=== PATIENT | female | born 1985 | race Caucasian/White ===

== ENCOUNTER 2017-02-14 12:22 | Inpatient (IN) | payer OTHER ==
[2017-02-14] MEDS ORDERED: LORazepam 2 MG/ML SYRINGE IV STA ×2 (13:09→13:11)
[2017-02-14] MEDS ORDERED: SODIUM CHLORIDE 0.9% 1,000 ML IV STA ×2 (13:09)
--- NOTE | 2017-02-14 13:49 | ED ---
General Adult HPI - General Chief complaint: Weakness Stated complaint: pain all over Time Seen by Provider: 02/14/17 12:38 Source: EMS Mode of arrival: EMS - History of Present Illness Initial comments: The patient is a 31-year-old female with a history of multiple sclerosis and seizure disorder who presents to the ED with a chief complaint of twitching throughout her entire body as well as weakness of the upper and lower extremities. Patient also complains of difficulty in swallowing. Patient states that her symptoms have been present over the course the past week and have been progressively worsening. Patient states that she went to go see her PCP earlier this week. She states that she received a steroid shot at that point in time and was given instructions to follow-up with Dr. Alcazar. Patient states that her symptoms seemed to be worsening acutely and she was concerned that she might have a full out MS flare. As such, she came to the ED for further evaluation. The patient admits that she has been very poorly compliant with her medications for multiple sclerosis as well as seizure disorder. She states that she has not been taking any medications altogether. She was once on Topamax, Lamictal, and Beta-Interferon. Patient states that she stopped taking these medications because she was improving and felt like they weren't doing anything to help. Patient used to follow with Dr. Hernandez from Neurology. The patient states that her symptoms today are different than the seizures that she's had in the past. She states that she had full out tonic- clonic seizures. Patient denies any loss of bowel or bladder function. She states that her symptoms are similar to prior MS exacerbations. - Related Data Home Medications Medication Instructions Recorded Confirmed predniSONE See Taper PO BID 02/14/17 02/14/17 Allergies Allergy/AdvReac Type Severity Reaction Status Date / Time No Known Allergies Allergy Verified 02/14/17 13:21 Review of Systems ROS Statement: Those systems with pertinent positive or pertinent negative responses have been documented in the HPI. ROS Other: All systems not noted in ROS Statement are negative. Constitutional: Denies: fever, chills, weakness, weight change Eyes: Denies: vision change ENT: Reports: other (difficulty with swallowing). Denies: ear pain, throat pain , dental pain, hearing loss Respiratory: Denies: cough, dyspnea, wheezes Cardiovascular: Denies: chest pain, palpitations, dyspnea on exertion, orthopnea , edema Endocrine: Reports: fatigue Gastrointestinal: Denies: abdominal pain, nausea, vomiting, diarrhea, constipation Genitourinary: Reports: other (denies incontinence). Denies: urgency, dysuria, frequency Musculoskeletal: Reports: other (weakness and myalgias of the upper and lower extremities) Skin: Denies: rash, lesions Neurological: Reports: headache (intermittent), weakness (bilateral upper and lower extremities), numbness (distal upper and lower extremities). Denies: paresthesias, confusion, abnormal gait, vertigo, other Psychiatric: Reports: anxiety. Denies: depression Past Medical History Past Medical History: Neurologic Disorder, Seizure Disorder Additional Past Medical History / Comment(s): multiple sclerosis History of Any Multi-Drug Resistant Organisms: None Reported Past Surgical History: Appendectomy, Section, Tubal Ligation Additional Past Surgical History / Comment(s): D&C, CORRECTIVE EYE SURGERY Past Anesthesia/Blood Transfusion Reactions: No Reported Reaction Past Psychological History: Anxiety, Depression Smoking Status: Never smoker - Past Family History Mother Family Medical History: COPD General Exam General appearance: alert, in no apparent distress Head exam: Present: atraumatic, normocephalic Eye exam: Present: normal appearance, PERRL, EOMI. Absent: scleral icterus, conjunctival injection, nystagmus Pupils: Present: normal accommodation ENT exam: Present: normal exam, mucous membranes dry, other (Oropharynx is non- swollen and non-injected) Neck exam: Present: normal inspection. Absent: tenderness, meningismus, full ROM, lymphadenopathy, thyromegaly Respiratory exam: Present: normal lung sounds bilaterally. Absent: respiratory distress, wheezes, rales, rhonchi, stridor, chest wall tenderness Cardiovascular Exam: Present: regular rate, normal rhythm GI/Abdominal exam: Present: soft. Absent: distended, tenderness, guarding, rebound Extremities exam: Present: normal inspection, full ROM, normal capillary refill , other (4-5 strength of the bilateral upper and lower extremities). Absent: tenderness, pedal edema, joint swelling Back exam: Present: normal inspection, full ROM. Absent: tenderness Neurological exam: Present: alert, oriented X3, CN II-XII intact, other ( inability to ambulate). Absent: reflexes normal (diminished reflexes in the upper and lower extremities) Psychiatric exam: Present: normal affect, anxious Skin exam: Present: warm, dry, intact Course Vital Signs 02/14/17 02/14/17 12:24 14:44 Temperature 98.2 F Pulse Rate 104 H 79 Respiratory 18 18 Rate Blood Pressure 132/73 125/78 O2 Sat by Pulse 99 100 Oximetry EKG Findings - EKG Comments: EKG Findings:: EKG demonstrates NSR with a rate of 90. There is a sinus arrhythmia present. There are no concerning ST or T-wave changes. The SD and QRS intervals are within normal limits. Medical Decision Making - Medical Decision Making The patient is a 31-year-old female who presents to the ED with a chief complaint of weakness in the upper and lower extremities. She also complains of difficulty with swallowing. Patient also cites shaking of upper and lower extremities. Patient states that her symptoms are consistent with prior exacerbations of her multiple sclerosis. The patient was diagnosed with multiple sclerosis via MRI. She does have an MRI from 2014 that demonstrates evidence of white matter changes that would be consistent with multiple sclerosis. The patient used to follow with Dr. Hernandez. Her PCP provided her with instructions to follow-up with Dr. Alcazar but the patient has not had the opportunity to do so. Given the patient is unable to ambulate, will check lab work. We will contact Dr. Alcazar for recommendations after lab work is returned. It should be noted that the patient was poorly compliant with her medications for seizure disorder as well as for her multiple sclerosis. She states she has not taken either of these medications over the course the past 2 years. 4:[address] Alcazar regarding the patient. He recommends that the patient receive an MRI Brain w/wo Contrast. He also recommends starting the patient on Solu-Medrol 250mg IVPB q8 hrs. I have updated the patient of findings and overall plan of care. I have answered all of her questions to her satisfaction. 4:[address] Cornell, who accepts admission of the patient. - Lab Data Result diagrams: 02/14/17 13:30 02/14/17 13:30 Lab Results 02/14/17 02/14/17 02/14/17 Range/Units 13:30 13:30 13:30 WBC 6.9 (3.8-10.6) k/uL RBC 4.22 (3.80-5.40) m/uL Hgb 12.3 (11.4-16.0) gm/dL Hct 38.0 (34.0-46.0) % MCV 90.2 (80.0-100.0) fL MCH 29.1 (25.0-35.0) pg MCHC 32.3 (31.0-37.0) g/dL RDW 13.2 (11.5-15.5) % Plt Count 200 (150-450) k/uL Neutrophils % 76 % Lymphocytes % 16 % Monocytes % 5 % Eosinophils % 0 % Basophils % 0 % Neutrophils # 5.3 (1.3-7.7) k/uL Lymphocytes # 1.1 (1.0-4.8) k/uL Monocytes # 0.4 (0-1.0) k/uL Eosinophils # 0.0 (0-0.7) k/uL Basophils # 0.0 (0-0.2) k/uL Sodium 140 (137-145) mmol/L Potassium 5.5 H (3.5-5.1) mmol/L Chloride 110 H (98-107) mmol/L Carbon Dioxide 21 L (22-30) mmol/L Anion Gap 9 mmol/L BUN 12 (7-17) mg/dL Creatinine 0.60 (0.52-1.04) mg/dL Est GFR (MDRD) Af Amer >60 (>60 ml/min/1.73 sqM) Est GFR (MDRD) Non-Af >60 (>60 ml/min/1.73 sqM) Glucose 98 (74-99) mg/dL Plasma Lactic Acid Daniel 0.9 (0.7-2.0) mmol/L Calcium 8.8 (8.4-10.2) mg/dL Magnesium 1.6 (1.6-2.3) mg/dL Creatine Kinase 93 (30-135) U/L TSH 0.749 (0.465-4.680) mIU/L Disposition Clinical Impression: Multiple sclerosis exacerbation, Weakness, Medical non-compliance Disposition: ADMITTED IP TO THIS [facility] Condition: Good Referrals: Evangelist Anne DO [Primary Care Provider] - 1-2 days Time of Disposition: 16:32 Decision to Admit Reason: Admit from EC Decision Date: 02/14/17 Decision Time: 16:32
[2017-02-14 13:59] LABS: Basophils % (A) 0 %; CH 29.3; CHCM 32.6; Eosinophils % (A) 0 %; HDW 2.25; HGB 12.3 gm/dL (11.4-16.0); Luc # (Auto) 0.12; Luc % (Auto) 2; Lymphocytes # (A) 1.1 k/uL (1.0-4.8); Lymphocytes % (A) 16 %; MCH 29.1 pg (25.0-35.0); MCHC 32.3 g/dL (31.0-37.0); MCV 90.2 fL (80.0-100.0); Mean Platelet Volume 7.8; Monocytes # (A) 0.4 k/uL (0-1.0); Monocytes % (A) 5 %; Neutrophils # (A) 5.3 k/uL (1.3-7.7); Neutrophils % (A) 76 %; RBC 4.22 m/uL (3.80-5.40); RDW 13.2 % (11.5-15.5); WBC 6.9 k/uL (3.8-10.6); WBC (Perox) 7.34
[2017-02-14 14:09] LABS: Anion Gap 9 mmol/L; Blood Urea Nitrogen 12 mg/dL (7-17); Calcium 8.8 mg/dL (8.4-10.2); Carbon Dioxide 21 mmol/L (22-30); Chloride 110 mmol/L (98-107); Creatine Kinase 93 U/L (30-135); Glucose 98 mg/dL (74-99); Magnesium 1.6 mg/dL (1.6-2.3); Non-African American GFR(MDRD) >60 (>60 ml/min/1.73 sqM); Sodium 140 mmol/L (137-145)
[2017-02-14 14:40] LABS: Potassium 5.5 mmol/L (3.5-5.1)
[2017-02-14] MEDS: MAGNESIUM SULFATE-D5W PMX 1 GM in DEXTROSE/WATER 1 100ML.BAG IVPB SCH ×2 (15:48→20:00)
[2017-02-14] MEDS ORDERED: methylPREDNISolone SOD SUCCI 250 MG in SODIUM CHLORIDE 0.9% 100 ML IVPB STA (15:54)
[2017-02-14] MEDS ORDERED: NALOXONE 0.4 MG/ML 1 ML VIAL IV PRN (16:33)
[2017-02-14 17:50] LABS: Glucose,Whole Blood 81 mg/dL (75-99)
[2017-02-14] MEDS ORDERED: LORazepam 2 MG/ML SYRINGE IV PRN (17:57)
[2017-02-14] MEDS ORDERED: SODIUM POLYSTYRENE SULFONATE 15 GM/60 ML BOTTLE PO ONE (18:03)
[2017-02-14] MEDS: HYDROmorphone 1 MG/ML 1 ML SYRINGE IVP PRN (18:42)
[2017-02-14 20:34] LABS: Glucose,Whole Blood 123 mg/dL (75-99)
[2017-02-14] MEDS: VALPROATE SODIUM 500 MG in SODIUM CHLORIDE 0.9% 50 ML IVPB SCH (21:15)
[2017-02-14] MEDS ORDERED: TEMAZEPAM 15 MG CAP PO PRN (22:24)
[2017-02-14] MEDS: INSULIN LISPRO (humaLOG) 300 UNIT/3 ML VIAL SQ SCH (22:42)
[2017-02-14] MEDS: methylPREDNISolone SOD SUCCI 250 MG in SODIUM CHLORIDE 0.9% 100 ML IVPB SCH (23:01)
[2017-02-14] MEDS: PANTOPRAZOLE 40 MG TABLET PO SCH (23:02)
[2017-02-14] MEDS: HEPARIN SODIUM,PORCINE 5,000 UNIT/ML 1 ML VIAL SQ SCH (23:02)
[2017-02-15] MEDS: HYDROmorphone 1 MG/ML 1 ML SYRINGE IVP PRN ×4 (00:28→22:37)
[2017-02-15] MEDS: VALPROATE SODIUM 500 MG in SODIUM CHLORIDE 0.9% 50 ML IVPB SCH ×3 (04:23→20:51)
[2017-02-15 07:29] LABS: Glucose,Whole Blood 141 mg/dL (75-99)
--- NOTE | 2017-02-15 07:46 | MR ---
EXAMINATION TYPE: MR brain wo/w con DATE OF EXAM: 02/15/2017 COMPARISON: 08/08/2015 HISTORY: 31-year-old female with weakness of upper and lower extremities, history of MS TECHNIQUE: Multiplanar, multisequence images of the brain and brainstem is performed without and with utilizing 10 mL intravenous MultiHance gadolinium contrast. Demyelinating disease protocol with additional Sag ittal Flair sequence performed. FINDINGS: T2 Lesions Present : Yes Approximate Number of Lesions: Approximately 4 within the right cerebral hemisphere and 6 within the left cerebral hemisphere. Locations Identified : Subcortical, periatrial, and pericallosal. Size of Reference Lesion(s): 1. 5 x 3 mm the left frontoparietal periventricular white matter, stable from prior. 2. Left periatrial white matter lesion is stable. Enhancing Lesion(s) Present: No. T1 Hypointense Lesion(s) Present: Yes Change from Prior: A few punctate foci in the bifrontal subcortical white matter appear new. Couple p unctate foci in the right pericallosal region and also in the left anterior subcortical white matter are now better seen. Diffusion weighted images demonstrate no evidence of a recent infarct or other diffusion abnormality. There is no worrisome extra-axial fluid collection. The ventricular system and cisternal spaces are normal in size and appearance. The brain volume is a ge appropriate. Midline structures demonstrate normal morphology. The craniocervical junction appears within normal limits. Post contrast images demonstrate no abnormal enhancement. The dural venous sinuses appear patent. The visualized sinuses are clear and the globes are intact. IMPRESSION: Minimal scattered burden of T2 bright white matter change likely in keeping with the patient's histor y of MS. A few punctate foci in the bifrontal subcortical region may be new and additional punctate f oci in the anterior left frontal and right pericallosal region are now better seen. No enhancing plaq ues visualized.
[2017-02-15] MEDS: PANTOPRAZOLE 40 MG TABLET PO SCH (08:07)
[2017-02-15] MEDS: HEPARIN SODIUM,PORCINE 5,000 UNIT/ML 1 ML VIAL SQ SCH ×2 (08:09→20:52)
[2017-02-15] MEDS: INSULIN LISPRO (humaLOG) 300 UNIT/3 ML VIAL SQ SCH ×4 (08:09→20:52)
[2017-02-15 08:57] LABS: Basophils % (A) 0 %; CH 29.2; CHCM 33.4; Eosinophils % (A) 0 %; HCT 37.5 % (34.0-46.0); HDW 2.33; HGB 12.6 gm/dL (11.4-16.0); Luc # (Auto) 0.04; Luc % (Auto) 1; Lymphocytes # (A) 0.7 k/uL (1.0-4.8); Lymphocytes % (A) 12 %; MCH 29.5 pg (25.0-35.0); MCHC 33.7 g/dL (31.0-37.0); MCV 87.7 fL (80.0-100.0); Mean Platelet Volume 6.9; Monocytes # (A) 0.1 k/uL (0-1.0); Monocytes % (A) 1 %; Neutrophils # (A) 5.2 k/uL (1.3-7.7); Neutrophils % (A) 86 %; RBC 4.28 m/uL (3.80-5.40); RDW 12.7 % (11.5-15.5); WBC 6.1 k/uL (3.8-10.6); WBC (Perox) 6.21
[2017-02-15 09:04] LABS: ALT 21 U/L (9-52); AST 15 U/L (14-36); Alkaline Phosphatase 92 U/L (38-126); Anion Gap 10 mmol/L; Blood Urea Nitrogen 12 mg/dL (7-17); Calcium 8.6 mg/dL (8.4-10.2); Carbon Dioxide 23 mmol/L (22-30); Chloride 106 mmol/L (98-107); Glucose 138 mg/dL (74-99); Magnesium 2.1 mg/dL (1.6-2.3); Non-African American GFR(MDRD) >60 (>60 ml/min/1.73 sqM); Phosphorous 3.1 mg/dL (2.5-4.5); Potassium 4.3 mmol/L (3.5-5.1); Sodium 139 mmol/L (137-145); Total Bilirubin 0.7 mg/dL (0.2-1.3); Total Protein 6.5 g/dL (6.3-8.2)
[2017-02-15] MEDS: methylPREDNISolone SOD SUCCI 250 MG in SODIUM CHLORIDE 0.9% 100 ML IVPB SCH ×2 (09:11→16:25)
--- NOTE | 2017-02-15 10:42 | CONS ---
DATE OF CONSULTATION: 02/14/2017 CHIEF COMPLAINT: Multiple sclerosis exacerbation. HISTORY OF PRESENT ILLNESS: The patient is a 31-year-old female who is being evaluated today on 02/14/2017 by the neurology service per the request of Dr. Cornell for a multiple sclerosis exacerbation. The patient states that she was diagnosed with multiple sclerosis a few years ago and had been treating with Dr. Hernandez. She had been on Betaseron injections. She states that since Dr. Hernandez left [facility], she has not followed up with any neurologist or any primary care physician. She has discontinued all of her medications since then. Other than Betaseron for her multiple sclerosis, she reports a history of seizures and she had been on Keppra for this. She states that she has discontinued Keppra but has not had any breakthrough seizures since then. She describes her seizures as generalized tonic-clonic type. Her last seizure was approximately 2 years ago. The patient was brought into [facility] emergency room with complaints of swallowing difficulties and generalized weakness. Her symptoms started a couple days ago but have been getting worse. She is also complaining of tremors, but in evaluating her, these are more consistent with myoclonus. I did review her CBC and comprehensive metabolic profile, all of which were normal except for mild hyperkalemia at 5.5. The patient was started on IV Solu-Medrol and admitted for further workup and management. At the time of my evaluation, she is lying in her bed and appears to be in mild distress due to pain. She reports pain in her lower extremities, and she states that this is part of her usual exacerbation. PAST MEDICAL HISTORY: Epilepsy, multiple sclerosis, bipolar disorder, posttraumatic stress disorder, depression, anxiety disorder, history of appendectomy, tubal ligation, . SOCIAL HISTORY: The patient denies any tobacco, alcohol or drug use. FAMILY HISTORY: Positive for chronic obstructive pulmonary disease. HOME MEDICATIONS: None at this time. ALLERGIES: No known drug allergies. REVIEW OF SYSTEMS: CONSTITUTIONAL: Positive for fatigue. EYES: Negative. ENT: Negative. CARDIOVASCULAR: Negative. RESPIRATORY: Negative. GASTROINTESTINAL: Negative. NEUROLOGICAL: As mentioned above. GENITOURINARY: Negative. PSYCHIATRIC: As mentioned above. DERMATOLOGICAL: Negative. MUSCULOSKELETAL: As mentioned above. ENDOCRINE: Negative. PHYSICAL EXAM: Vital signs show a temperature of 97.2, pulse 93, respirations 20, blood pressure 141/96. GENERAL APPEARANCE: The patient is a thin female who appears to be in mild distress due to pain. HEENT: Normocephalic, atraumatic, no facial asymmetry is seen. Neck is supple with no masses felt. CARDIOVASCULAR: Regular rate and rhythm. ABDOMEN: Nontender, nondistended. Extremities showed no edema or clubbing. NEUROLOGICAL EXAM: The patient is alert, awake, and oriented x3. Speech and language are normal. Strength is 5 minus out of 5 in all 4 extremities but she does have significant pain with movements of her lower extremities. Deep tendon reflexes were 2 to 3+ and symmetrical. Recurrent myoclonus is noticed. Mild postural tremors are seen. Sensory exam was normal to light touch in all 4 extremities. No facial asymmetry is seen on cranial nerve testing. IMPRESSION: 1. Multiple sclerosis exacerbation. 2. History of generalized tonic-clonic seizures. 3. Medication noncompliance. 4. Hyperkalemia. 5. Dysphagia. 6. Generalized weakness. 7. History of bipolar disorder. RECOMMENDATIONS: The patient's generalized weakness is unchanged at this time. She does report some improvements in her swallowing ability. Speech therapy has been consulted. I will keep her on IV Solu-Medrol 250 mg every 8 hours. She is on sliding scale insulin and Accu-Cheks. I will consult physical therapy to evaluate and treat. I will order an MRI of the brain with and without contrast. As for her history of seizures, she was on Keppra but this is not recommended given her significant psychiatric history. She does report having significant mood swings when she was on Keppra. I had a lengthy discussion with her regarding treatment options. Especially with her current symptoms of myoclonus, I think Depakote would be the treatment of choice. I will start her on Depakote 500 mg every 8 hours. An EEG has been ordered. Continue the rest of your current workup and management. I will continue to follow with you. Further recommendations to follow. Thank you for allowing me to participate in the care of your patient. If you have any questions, please feel free to contact me.
[2017-02-15] MEDS: HYDROcodone/APAP 5-325MG 1 EACH TAB PO PRN (10:45)
[2017-02-15 12:20] LABS: Glucose,Whole Blood 177 mg/dL (75-99)
[2017-02-15] MEDS: MULTIVITAMINS, THERA 1 EACH TAB PO SCH (12:51)
[2017-02-15] MEDS: FOLIC ACID 1 MG TAB PO SCH (12:51)
--- NOTE | 2017-02-15 13:29 | HP ---
DATE OF ADMISSION: Chief Complaints are weakness and tiredness. HISTORY OF PRESENT ILLNESS: This 31-year-old woman with a past medical history of multiple medical problems including history of seizure disorder, history of multiple sclerosis, chronic back pain, history of appendectomy, history of section, history of anxiety, depression, history of bipolar, being followed by Dr. Anne in the outpatient setting and also seen by Dr. Hernandez a neurologist who made the diagnosis of multiple sclerosis based on MRI and as well as a spinal fluid studies. Currently, the patient is complaining of increasing difficulties with walking and weakness. The patient is apparently being tremulous. This is more on the right lower limb and left upper limb. There is also visual difficulties. The symptoms increased over the week and the patient previously was seen by Dr. Alcazar and has apparently gotten a steroid shot, but the pain and weakness was increasing currently and because of increasing symptoms the patient came to [facility] and admitted for further evaluation and treatment. The patient was on Lamictal and the patient has not been compliant with the medications according to her. There is no history of any fever, rigors. No history of headache, loss of consciousness or seizures. PAST MEDICAL HISTORY: History of multiple sclerosis, history of seizure disorder, history of chronic back pain, DJD, anxiety, depression, bipolar. Medications prior to admission include prednisone taper. ALLERGIES: None. FAMILY HISTORY: COPD, history of multiple sclerosis, history of breast cancer. SOCIAL HISTORY: History of occasional alcohol intake. No history of smoking. REVIEW OF SYSTEMS: ENT: No diminished hearing. Diminished vision. CARDIOVASCULAR: No angina. RESPIRATORY: No cough, no hemoptysis. GI: No nausea, vomiting, or diarrhea. : No dysuria. NERVOUS SYSTEM: As mentioned earlier. ALLERGY/IMMUNOLOGY: No asthma or hayfever. MUSCULOSKELETAL: As mentioned earlier. HEMATOLOGY/ONCOLOGY: No history of anemia. ENDOCRINE: No history of diabetes mellitus or hypothyroidism. CONSTITUTIONAL: As mentioned earlier DERMATOLOGY: Negative. RHEUMATOLOGY: Negative. PSYCHIATRY: As mentioned earlier. PHYSICAL EXAMINATION: The patient is alert and oriented x3. Pulse is 93, blood pressure 141/96, respiration 20, temperature 97.2, pulse ox 100% on 2 L. HEENT: Conjunctivae normal. Oral mucosa moist. NECK: No jugular venous distention. No carotid bruit. No lymph node enlargement. CARDIOVASCULAR: S1 and S2, muffled. No S3, no S4. RESPIRATORY: Breath sounds diminished at the bases. A few rhonchi, no crackles. ABDOMEN: Soft, nontender. No mass palpable. LEGS: No edema, no swelling. NERVOUS SYSTEM: Higher function as mentioned earlier. Moves all 4 limbs. Diffuse weakness and diffuse tremors also present. diminished. No sensory abnormalities. LYMPHATICS: No lymphadenopathy of neck, axillae or groin. SKIN: No ulcers, rashes or bleeding. LABS: CBC within normal limits, Potassium 5.5. Glucose 123. ASSESSMENT: 1. Multiple sclerosis acute exacerbation. 2. Severe gait dysfunction. 3. Diffuse tremors. 4. Mild hyperkalemia. 5. Increased random blood sugar, possibly secondary to steroids. 6. History of seizure disorder. 7. History of chronic back pain, degenerative joint disease. 8. History of scoliosis. 9. History of neuropathy. 10. History of tubal ligation. 11. Anxiety, depression, bipolar, not otherwise specified. 12. Social stressors. 13. FULL CODE. RECOMMENDATIONS AND DISCUSSION: This 31-year-old woman who presented with multiple complex medical issues, will monitor the patient closely. Continue the current medications. Continue symptomatic treatment. I would recommend high-dose IV steroids. Monitor blood sugars closely. Otherwise proton pump inhibitors, DVT prophylaxis. Neurology evaluation, neurovascular lobe workup. Prognosis guarded because of multiple complex medical issues. Further recommendations to follow. A copy of dictation forwarded to Dr. Anne who is the primary physician. Dr. Alcazar has been consulted. [facility]
[2017-02-15 14:32] VITALS: BMI 18.9
[2017-02-15 15:01] LABS: Amorphous Sediment,Urine Rare /hpf; Appearance,Urine Cloudy (Clear); Bacteria,Urine Many /hpf; Bilirubin,Urine Negative (Negative); Glucose,Urine (UA) Negative (Negative); Ketones,Urine 2+ (Negative); Leukocyte Esterase,Urine Negative (Negative); Mucus,Urine Rare /hpf; Nitrite,Urine Negative (Negative); PH, Urine 6.5 (5.0-8.0); Particle Count 14048; Protein,Urine Trace (Negative); RBC,Urine 1 /hpf (0-5); Specific Gravity,Urine 1.021 (1.001-1.035); Squamous Epithelial Cell,Urine 5 /hpf (0-4); UA Billing (MACRO vs. MICRO) MICRO; Urobilinogen,Urine <2.0 mg/dL (<2.0); WBC,Urine 1 /hpf (0-5)
[2017-02-15 17:27] LABS: Glucose,Whole Blood 113 mg/dL (75-99)
--- NOTE | 2017-02-15 17:54 | P.PN ---
Subjective Date of service 02/25/2017. Personal being dictated for Dr. Cornell. Interval history: This a 31-year-old female admitted with acute MS exacerbation and multiple other medical issues including history of seizures. Evaluated by neurology with recommendations noted. Keppra discontinued and Depakote initiated as per neurology, given her psychiatric history. Maintained on high- dose IV steroids and seizure precautions. Feeling better today with tremors and shaking improving. No seizure activity reported. Improving lower extremity discomfort. Denies chest pain, palpitations or increasing shortness of breath. Evaluated by Pt, recommendations noted. EEG,MRI results pending. Denies chest pain, palpitations or increasing shortness of breath. Objective - Vital Signs Vital signs: Vital Signs Temp 97.9 F 02/15/17 15:00 Pulse 105 H 02/15/17 15:00 Resp 16 02/15/17 15:00 BP 143/93 02/15/17 15:00 Pulse Ox 97 02/15/17 15:00 Intake & Output 02/14/17 02/15/17 02/15/17 18:59 06:59 18:59 Weight 48.534 kg 48.534 kg Other: # Voids 2 1 - Exam PHYSICAL EXAM: VITAL SIGNS: As above GENERAL: [Sitting up in bed, no acute distress, visiting with friends at bedside ] HEENT: [Pupils equal conjunctiva normal. Oral mucosa moist] NECK: [Supple, no JVD] RESPIRATORY EFFORT:[ Normal] LUNGS: [Essentially clear, bilateral bases diminished, no wheezes rhonchi or crackles] CARDIOVASCULAR[ regular S1 and S2, no murmurs rubs or gallops, no edema] GI: [Abdomen soft, nontender, positive bowel sounds.] PSYCH: [Alert and oriented -3, mood and affect normal.] NEURO: [Clear functions as previously mentioned, moves all 4 extremities diffuse weakness with no sensory grossly intact, diffuse tremors and shakes improving. Moves all 4 extremities.] - Labs CBC & Chem 7: 02/15/17 08:26 02/15/17 08:26 Labs: Abnormal Lab Results - Last 24 Hours (Table) 02/14/17 02/15/17 02/15/17 Range/Units 20:33 07:27 08:26 Lymphocytes # 0.7 L (1.0-4.8) k/uL Glucose (74-99) mg/dL POC Glucose (mg/dL) 123 H 141 H (75-99) mg/dL Urine Appearance (Clear) Urine Protein (Negative) Urine Ketones (Negative) Ur Squamous Epith Cells (0-4) /hpf Amorphous Sediment (None) /hpf Urine Bacteria (None) /hpf Urine Mucus (None) /hpf 02/15/17 02/15/17 02/15/17 Range/Units 08:26 12:18 14:30 Lymphocytes # (1.0-4.8) k/uL Glucose 138 H (74-99) mg/dL POC Glucose (mg/dL) 177 H (75-99) mg/dL Urine Appearance Cloudy H (Clear) Urine Protein Trace H (Negative) Urine Ketones 2+ H (Negative) Ur Squamous Epith Cells 5 H (0-4) /hpf Amorphous Sediment Rare H (None) /hpf Urine Bacteria Many H (None) /hpf Urine Mucus Rare H (None) /hpf 02/15/17 Range/Units 17:19 Lymphocytes # (1.0-4.8) k/uL Glucose (74-99) mg/dL POC Glucose (mg/dL) 113 H (75-99) mg/dL Urine Appearance (Clear) Urine Protein (Negative) Urine Ketones (Negative) Ur Squamous Epith Cells (0-4) /hpf Amorphous Sediment (None) /hpf Urine Bacteria (None) /hpf Urine Mucus (None) /hpf Assessment and Plan Plan: 1. Acute exacerbation of Multiple sclerosis. 2. [ Severe gait dysfunction]. 3. [ Diffuse tremors]. 4. [ Mild hyperkalemia, subsided]. 5. [ Hyperglycemia, steroid-induced, currently controlled]. 6. [ History of seizure disorder]. 7. [ Degenerative joint disease with chronic back pain]. 8. Scoliosis 9. Neuropathy 10. Anxiety, depression, bipolar, not otherwise specified 11. Social stressors Plan: Continue on current medication regime, monitoring and symptomatic treatment. Maintain high dose IV steroids, seizure precautions. Neuro. workup in progress.Follow closely with neurology. Prognosis guarded given multiple complex medical issues. Further recommendations to follow. The impression and plan of care has been dictated as directed. : I performed a H&P examination of this patient and discussed the same with the dictator. I agree with the dictator's note. Any additional findings/opinions/ etc. will be noted.
[2017-02-15 20:39] LABS: Glucose,Whole Blood 161 mg/dL (75-99)
[2017-02-15] MEDS: ONDANSETRON 4 MG/2 ML VIAL IVP PRN (20:52)
--- NOTE | 2017-02-15 22:53 | PN ---
DATE OF SERVICE: 02/15/2017 This 31-year-old woman who was admitted with multiple sclerosis exacerbation is being closely monitored on IV steroids. Seen and evaluated the patient along with the nurse practitioner. Please refer to the nurse practitioner's notes and impressions documented as a scribe for further information.
--- NOTE | 2017-02-15 23:34 | P.PN ---
Subjective Principal diagnosis: Multiple sclerosis exacerbation Patient is a 31-year-old female being followed by neurology for multiple sclerosis exacerbation. Patient was diagnosed multiple sclerosis approximately 3 years ago and then treating with Dr. Hernandez. Patient's provider left the area and she has not reestablish care with a new neurologist or primary care physician. She previously discontinued all of her medications including her Betaseron for multiple sclerosis. She reports a history of seizure and had been on Keppra. She states that she discontinue Keppra but has not had any breakthrough seizures since. She describes her seizures are generalized, tonic-clonic type. Last seizure was approximately 2 years ago. Patient is brought to [facility] emergency room with complaints of swallowing difficulties and generalized weakness. Symptoms started several days ago and had gotten worse. She also complained of tremors but noted that they were more consistent with mild clonus. CBC, CMP were all within normal limits with the exception of mild hyperkalemia. Patient has benign IV Solu-Medrol for the last 24 hours and was admitted. On contact, patient was supine in bed, Alert and oriented 3, resting with IV steroid infusion in process. Patient is receiving 250 mg every 8 hours of IV Solu-Medrol. Currently the patient is approximately 24 hours into steroid infusion. Patient does report some decreased symptoms. Objective - Vital Signs Vital signs: Vital Signs Temp 97.9 F 02/15/17 15:00 Pulse 105 H 02/15/17 15:00 Resp 16 02/15/17 15:00 BP 143/93 02/15/17 15:00 Pulse Ox 97 02/15/17 15:00 Intake & Output 02/15/17 02/15/17 02/16/17 06:59 18:59 06:59 Weight 48.534 kg Other: # Voids 2 1 1 - Exam Constitutional: AOx3, cooperative HEENT: NC/AT, no facial asymmetry is seen. Throat: Supple, no masses Respiratory: No increased work of breathing Cardiac: Regular rate and Rhythm GI: non tender, non distended Musculoskeletal: Tool Marker strengths are equal bilaterally 5/5, Lower extremity strengths are equal bilaterally at 5/5. Neurological: CN II-XII in tact, patient was AOx3, speech and language are normal, no unilateralizing weakness, no seizure activity note on physical exam. Sensation was normal. Mild postural tremor. Integementary: no rash, no erythema Psychiatric: mood and affect appropriate - Labs CBC & Chem 7: 02/15/17 08:26 02/15/17 08:26 Labs: Abnormal Lab Results - Last 24 Hours (Table) 02/15/17 02/15/17 02/15/17 Range/Units 07:27 08:26 08:26 Lymphocytes # 0.7 L (1.0-4.8) k/uL Glucose 138 H (74-99) mg/dL POC Glucose (mg/dL) 141 H (75-99) mg/dL Urine Appearance (Clear) Urine Protein (Negative) Urine Ketones (Negative) Ur Squamous Epith Cells (0-4) /hpf Amorphous Sediment (None) /hpf Urine Bacteria (None) /hpf Urine Mucus (None) /hpf 02/15/17 02/15/17 02/15/17 Range/Units 12:18 14:30 17:19 Lymphocytes # (1.0-4.8) k/uL Glucose (74-99) mg/dL POC Glucose (mg/dL) 177 H 113 H (75-99) mg/dL Urine Appearance Cloudy H (Clear) Urine Protein Trace H (Negative) Urine Ketones 2+ H (Negative) Ur Squamous Epith Cells 5 H (0-4) /hpf Amorphous Sediment Rare H (None) /hpf Urine Bacteria Many H (None) /hpf Urine Mucus Rare H (None) /hpf 02/15/17 Range/Units 20:37 Lymphocytes # (1.0-4.8) k/uL Glucose (74-99) mg/dL POC Glucose (mg/dL) 161 H (75-99) mg/dL Urine Appearance (Clear) Urine Protein (Negative) Urine Ketones (Negative) Ur Squamous Epith Cells (0-4) /hpf Amorphous Sediment (None) /hpf Urine Bacteria (None) /hpf Urine Mucus (None) /hpf Microbiology - Last 24 Hours (Table) 02/15/17 14:30 Urine Culture - Preliminary Urine,Voided Assessment and Plan (1) Medical non-compliance Status: Acute (2) Multiple sclerosis exacerbation Status: Acute (3) Weakness Status: Acute (4) Seizure Status: Acute Plan: Patient does experience. Experiencing a multiple sclerosis exacerbation. After beginning IV steroid infusion, the patient's symptoms are decreasing. The patient will need ongoing further neurological management outpatient one steroids are completed and symptoms have returned to baseline. Patient's generalized weakness is improving. Each therapy is on consult. Sliding scale insulin and Accu-Cheks as ordered. Physical therapy is on consult. Patient was started on Depakote 500 mg every 8 hours in an EEG requested yesterday by neurology. Patient is doing well on Depakote at this time and expresses no adverse effects. Patient's MRI of the brain notes changes consistent with multiple sclerosis. Continue plan of care, neurology will continue to follow and provide further updates as needed or warranted. Feel free to contact our office with any questions.
[2017-02-16] MEDS: methylPREDNISolone SOD SUCCI 250 MG in SODIUM CHLORIDE 0.9% 100 ML IVPB SCH ×3 (01:16→18:49)
[2017-02-16] MEDS: VALPROATE SODIUM 500 MG in SODIUM CHLORIDE 0.9% 50 ML IVPB SCH ×3 (04:12→21:55)
[2017-02-16] MEDS: HYDROmorphone 1 MG/ML 1 ML SYRINGE IVP PRN ×3 (06:32→18:53)
[2017-02-16 07:27] LABS: Glucose,Whole Blood 120 mg/dL (75-99)
[2017-02-16] MEDS: INSULIN LISPRO (humaLOG) 300 UNIT/3 ML VIAL SQ SCH ×4 (10:23→21:56)
[2017-02-16] MEDS: FOLIC ACID 1 MG TAB PO SCH (11:19)
[2017-02-16] MEDS: HEPARIN SODIUM,PORCINE 5,000 UNIT/ML 1 ML VIAL SQ SCH ×2 (11:19→21:55)
[2017-02-16] MEDS: MULTIVITAMINS, THERA 1 EACH TAB PO SCH (11:19)
[2017-02-16] MEDS: PANTOPRAZOLE 40 MG TABLET PO SCH (11:19)
[2017-02-16 12:33] LABS: Glucose,Whole Blood 148 mg/dL (75-99)
[2017-02-16] MEDS: ONDANSETRON 4 MG/2 ML VIAL IVP PRN (14:38)
[2017-02-16 17:12] LABS: Glucose,Whole Blood 126 mg/dL (75-99)
[2017-02-16 21:33] LABS: Glucose,Whole Blood 175 mg/dL (75-99)
--- NOTE | 2017-02-16 21:54 | P.PN ---
Subjective Principal diagnosis: Multiple sclerosis exacerbation Patient is a 31-year-old female being followed by neurology for multiple sclerosis exacerbation. Patient was diagnosed multiple sclerosis approximately 3 years ago and then treating with Dr. Hernandez. Patient's provider left the area and she has not reestablish care with a new neurologist or primary care physician. She previously discontinued all of her medications including her Betaseron for multiple sclerosis. She reports a history of seizure and had been on Keppra. She states that she discontinued Keppra but has not had any breakthrough seizures since. She describes her seizures are generalized, tonic-clonic type. Last seizure was approximately 2 years ago. Patient was brought to [facility] emergency room with complaints of swallowing difficulties and generalized weakness. Symptoms started several days ago and had gotten worse. She also complained of tremors but noted that they were more consistent with mild clonus. CBC, CMP were all within normal limits with the exception of mild hyperkalemia. Patient has continued IV Solu-Medrol for the last 48 hours and is improving. On contact, patient was seated in bed, Alert and oriented 3, with IV steroid infusion in process. Patient is receiving 250 mg every 8 hours of IV Solu- Medrol. Patient does report some decreased symptoms. She is still stating she has difficulty ambulating with a walker due to lower extremity weakness. Patient is approximately 65% returned to baseline. Objective - Vital Signs Vital signs: Vital Signs Temp 96.6 F L 02/16/17 15:00 Pulse 83 02/16/17 15:00 Resp 20 02/16/17 15:00 BP 128/78 02/16/17 15:00 Pulse Ox 94 L 02/16/17 15:00 Intake & Output 02/16/17 02/16/17 02/17/17 06:59 18:59 06:59 Other: # Voids 2 2 - Exam Constitutional: AOx3, cooperative HEENT: NC/AT, no facial asymmetry is seen. Throat: Supple, no masses Respiratory: No increased work of breathing Cardiac: Regular rate and Rhythm GI: non tender, non distended Musculoskeletal: Neck Pinner strengths are equal bilaterally 5/5, Lower extremity strengths are equal bilaterally at 5/5. Neurological: CN II-XII in tact, patient was AOx3, speech and language are normal, no unilateralizing weakness, no seizure activity note on physical exam. Sensation was normal. Mild postural tremor. Integementary: no rash, no erythema Psychiatric: mood and affect appropriate - Labs CBC & Chem 7: 02/15/17 08:26 02/15/17 08:26 Labs: Abnormal Lab Results - Last 24 Hours (Table) 02/16/17 02/16/17 02/16/17 Range/Units 07:23 12:21 17:04 POC Glucose (mg/dL) 120 H 148 H 126 H (75-99) mg/dL 02/16/17 Range/Units 21:27 POC Glucose (mg/dL) 175 H (75-99) mg/dL Microbiology - Last 24 Hours (Table) 02/15/17 14:30 Urine Culture - Final Urine,Voided Assessment and Plan (1) Medical non-compliance Status: Acute (2) Multiple sclerosis exacerbation Status: Acute (3) Weakness Status: Acute (4) Seizure Status: Acute Plan: Patient does experience. Experiencing a multiple sclerosis exacerbation. After beginning IV steroid infusion, the patient's symptoms are decreasing. The patient will need ongoing further neurological management outpatient one steroids are completed and symptoms have returned to baseline. Patient's generalized weakness is improving. Each therapy is on consult. Sliding scale insulin and Accu-Cheks as ordered. Physical therapy is on consult. Patient was started on Depakote 500 mg every 8 hours. EEG was ordered Patient is doing well on Depakote at this time and expresses no adverse effects. Depakote level to be drawn in the morning. Patient's MRI of the brain notes changes consistent with multiple sclerosis. May discontinue seizeure precautions, neuro checks can occur QSHIFT. Continue plan of care, neurology will continue to follow and provide further updates as needed or warranted. Feel free to contact our office with any questions.
[2017-02-17] MEDS: methylPREDNISolone SOD SUCCI 250 MG in SODIUM CHLORIDE 0.9% 100 ML IVPB SCH ×4 (01:55→23:16)
[2017-02-17] MEDS: VALPROATE SODIUM 500 MG in SODIUM CHLORIDE 0.9% 50 ML IVPB SCH ×3 (03:53→19:50)
[2017-02-17 07:12] LABS: Glucose,Whole Blood 143 mg/dL (75-99)
[2017-02-17] MEDS: PANTOPRAZOLE 40 MG TABLET PO SCH (07:59)
[2017-02-17] MEDS: INSULIN LISPRO (humaLOG) 300 UNIT/3 ML VIAL SQ SCH ×4 (07:59→21:11)
[2017-02-17] MEDS: HEPARIN SODIUM,PORCINE 5,000 UNIT/ML 1 ML VIAL SQ SCH ×2 (07:59→20:17)
--- NOTE | 2017-02-17 09:01 | PN ---
DATE OF SERVICE: 02/16/2017 This 31-year-old woman was admitted with multiple sclerosis acute exacerbation, is being closely monitored. The patient is on high dose IV steroids. Neurology is follow the patient closely. The MRI showed bilateral multiple sclerosis. No fever, no cough. On exam, alert and oriented x3. Pulse 82, blood pressure 140/83, respirations 18, temperature 98.6, pulse ox 94% on room air. HEENT: Conjunctivae normal. NECK: No jugular venous distention. CARDIOVASCULAR: S1 and S2, muffled. RESPIRATORY: Breath sounds diminished at the bases. No rhonchi, no crackles. ABDOMEN: Soft, nontender. LEGS: No edema, no swelling. NERVOUS SYSTEM: Diffusely weak. LABS: Accu-Cheks 140, 126. ASSESSMENT: 1. Acute exacerbation of multiple sclerosis. 2. Severe gait dysfunction. 3. Diffuse tremors. 4. Mild hypokalemia. 5. Hyperglycemia, steroid induced. 6. History of seizure disorder. 7. History of degenerative joint disease with chronic back pain. 8. History of scoliosis. 9. History of neuropathy. 10. Anxiety, depression, bipolar not otherwise specified. 11. Social stressors. 12. FULL CODE. RECOMMENDATIONS AND DISCUSSION: In this 31-year-old woman who presented with multiple complex medical issues, we will monitor the patient closely. Continue with the current medications, continue high-dose IV steroids. PT, OT evaluation. Increase ambulation. Closely follow with Dr. Alcazar. Guarded prognosis. Further recommendations to follow. MTDD
[2017-02-17] MEDS: HYDROmorphone 1 MG/ML 1 ML SYRINGE IVP PRN ×2 (09:52→19:55)
[2017-02-17 11:58] LABS: Glucose,Whole Blood 140 mg/dL (75-99)
[2017-02-17] MEDS: FOLIC ACID 1 MG TAB PO SCH (12:28)
[2017-02-17] MEDS: MULTIVITAMINS, THERA 1 EACH TAB PO SCH (12:28)
[2017-02-17] MEDS ORDERED: SUMAtriptan SUCCINATE 50 MG TAB PO STA (13:42)
--- NOTE | 2017-02-17 13:50 | P.PN ---
Subjective Principal diagnosis: Multiple sclerosis exacerbation Patient is a 31-year-old female being followed by neurology for multiple sclerosis exacerbation. Patient was diagnosed multiple sclerosis approximately 3 years ago and then treating with Dr. Henrandez. Patient's provider left the area and she has not reestablish care with a new neurologist or primary care physician. She previously discontinued all of her medications including her Betaseron for multiple sclerosis. She reports a history of seizure and had been on Keppra. She states that she discontinued Keppra but has not had any breakthrough seizures since. She describes her seizures are generalized, tonic-clonic type. Last seizure was approximately 2 years ago. Patient was brought to [facility] emergency room with complaints of swallowing difficulties and generalized weakness. Symptoms started several days ago and had gotten worse. She also complained of tremors but noted that they were more consistent with mild clonus. CBC, CMP were all within normal limits with the exception of mild hyperkalemia. Patient has continued IV Solu-Medrol for the last 48 hours and is improving. Interval update: 02-17-17 On contact, patient was seated in bed, Alert and oriented 3, Patient does report some decreased symptoms. She is still stating she has difficulty ambulating with a walker due to lower extremity weakness. Patient is approximately 85% returned to baseline. PT to evaluate patient tomorrow. Objective - Vital Signs Vital signs: Vital Signs Temp 96.3 F L 02/17/17 07:00 Pulse 58 L 02/17/17 07:00 Resp 16 02/17/17 07:00 BP 143/77 02/17/17 07:00 Pulse Ox 97 02/17/17 07:00 Intake & Output 02/16/17 02/17/17 02/17/17 18:59 06:59 18:59 Other: Voiding Method Toilet # Voids 2 - Exam Constitutional: AOx3, cooperative HEENT: NC/AT, no facial asymmetry is seen. Throat: Supple, no masses Respiratory: No increased work of breathing Cardiac: Regular rate and Rhythm GI: non tender, non distended Musculoskeletal: Chronometer Assembler And Adjuster strengths are equal bilaterally 5/5, Lower extremity strengths are equal bilaterally at 5/5. Neurological: CN II-XII in tact, patient was AOx3, speech and language are normal, no unilateralizing weakness, no seizure activity note on physical exam. Sensation was normal. Mild postural tremor. Integementary: no rash, no erythema Psychiatric: mood and affect appropriate - Labs CBC & Chem 7: 02/15/17 08:26 02/15/17 08:26 Labs: Abnormal Lab Results - Last 24 Hours (Table) 02/16/17 02/16/17 02/17/17 Range/Units 17:04 21:27 07:05 POC Glucose (mg/dL) 126 H 175 H 143 H (75-99) mg/dL 02/17/17 Range/Units 11:56 POC Glucose (mg/dL) 140 H (75-99) mg/dL Microbiology - Last 24 Hours (Table) 02/15/17 14:30 Urine Culture - Final Urine,Voided Assessment and Plan (1) Medical non-compliance Status: Acute (2) Multiple sclerosis exacerbation Status: Acute (3) Weakness Status: Acute (4) Seizure Status: Acute Plan: Patient has been experiencing a multiple sclerosis exacerbation. After beginning IV steroid infusion, the patient's symptoms are decreasing. The patient will need ongoing further neurological management outpatient one steroids are completed and symptoms have returned to baseline. Patient's generalized weakness is improving. Speech therapy is on consult. Sliding scale insulin and Accu-Cheks as ordered. Physical therapy is on consult. Patient was started on Depakote 500 mg every 8 hours. EEG was ordered and is pending. Patient is doing well on Depakote at this time and expresses no adverse effects. Depakote level is therapeutic at 89.9. Patient's MRI of the brain notes changes consistent with multiple sclerosis. Imitrex 50 mg, prescribed for severe migriane level headache abortive purposes. May discontinue seizeure precautions, neuro checks can occur QSHIFT. Continue plan of care, neurology will continue to follow and provide further updates as needed or warranted. Feel free to contact our office with any questions.
[2017-02-17] MEDS: HYDROcodone/APAP 5-325MG 1 EACH TAB PO PRN (15:00)
[2017-02-17 16:55] LABS: Glucose,Whole Blood 121 mg/dL (75-99)
[2017-02-17 18:03] LABS: Creatine Kinase MB 0.2 ng/mL (0.0-2.4)
[2017-02-17] MEDS ORDERED: ALPRAZolam 0.25 MG TAB PO PRN (18:27)
[2017-02-17 20:50] LABS: Glucose,Whole Blood 134 mg/dL (75-99)
[2017-02-18] MEDS: VALPROATE SODIUM 500 MG in SODIUM CHLORIDE 0.9% 50 ML IVPB SCH (04:17)
[2017-02-18] MEDS: HYDROmorphone 1 MG/ML 1 ML SYRINGE IVP PRN ×2 (04:56→11:39)
[2017-02-18 07:18] LABS: Glucose,Whole Blood 141 mg/dL (75-99)
[2017-02-18 07:23] VITALS: BP 127/85; PULSE 51; RESP 16; TEMP 97.7
[2017-02-18] MEDS: INSULIN LISPRO (humaLOG) 300 UNIT/3 ML VIAL SQ SCH ×2 (08:41→13:26)
[2017-02-18] MEDS: HEPARIN SODIUM,PORCINE 5,000 UNIT/ML 1 ML VIAL SQ SCH (08:42)
[2017-02-18] MEDS: methylPREDNISolone SOD SUCCI 250 MG in SODIUM CHLORIDE 0.9% 100 ML IVPB SCH (08:42)
[2017-02-18] MEDS: PANTOPRAZOLE 40 MG TABLET PO SCH (08:42)
[2017-02-18] MEDS ORDERED: SUMAtriptan SUCCINATE 50 MG TAB PO PRN (10:23)
[2017-02-18] MEDS: FOLIC ACID 1 MG TAB PO SCH (11:39)
[2017-02-18] MEDS: MULTIVITAMINS, THERA 1 EACH TAB PO SCH (11:39)
[2017-02-18 12:37] LABS: Glucose,Whole Blood 120 mg/dL (75-99)
--- NOTE | 2017-02-18 15:04 | PN ---
DATE OF SERVICE: 02/17/2017 This is a 31-year-old woman was admitted with multiple sclerosis acute exacerbation. The patient is high-dose IV steroids. The patient also diagnosed with multiple other comorbidities also. No chest pain or palpitation, no fever. On exam, alert and oriented x3. Pulse 55, blood pressure 140/88, respirations 18, temperature is 97 degrees, pulse ox 96% on room air. HEENT: Conjunctivae normal. NECK: No jugular venous distension. CARDIOVASCULAR SYSTEM: S1, S2 muffled. RESPIRATORY: Breath sounds diminished at the bases. No rhonchi, no crackles. Abdomen is soft, nontender. LEGS: No edema, no swelling. NERVOUS SYSTEM: Higher functions as mentioned, moves all 4 limbs, mild diffuse weakness present. LYMPHATICS: No lymph node enlargement in the neck, axillae or groin. The labs are glucose 134, CBC within normal limits. ASSESSMENT: 1. Acute exacerbation of multiple sclerosis. 2. History of severe gait dysfunction. 3. History of methicillin-resistant Staphylococcus aureus. 4. Mild hyperkalemia. 5. Hypoglycemia, steroid induced. 6. History of seizure disorder. 7. History of degenerative joint disease and chronic back pain. 8. History of scoliosis. 9. History of peripheral neuropathy. 10. Anxiety, depression, bipolar not otherwise specified. 11. Social stressors. 12. FULL CODE. RECOMMENDATION: Recommend to continue current medications, continue with the monitoring and symptomatic treatment. Otherwise, at this time, continue the steroids. Monitor blood sugars. Get PT, OT evaluation . Guarded prognosis. Further recommendations to follow. SKYED
[2017-02-18] MEDS ORDERED: DIVALPROEX 500 MG TABLET.DR PO SCH (16:00)
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
[2017-02-18] MEDS ORDERED: ARIPiprazole 10 MG TAB PO SCH (21:00)
--- NOTE | 2017-02-18 21:19 | P.PN ---
Subjective Principal diagnosis: Multiple sclerosis exacerbation Patient is a 31-year-old female being followed by neurology for multiple sclerosis exacerbation. Patient was diagnosed multiple sclerosis approximately 3 years ago and then treating with Dr. Hernandez. Patient's provider left the area and she has not reestablish care with a new neurologist or primary care physician. She previously discontinued all of her medications including her Betaseron for multiple sclerosis. She reports a history of seizure and had been on Keppra. She states that she discontinued Keppra but has not had any breakthrough seizures since. She describes her seizures are generalized, tonic-clonic type. Last seizure was approximately 2 years ago. Patient was brought to [facility] emergency room with complaints of swallowing difficulties and generalized weakness. Symptoms started several days ago and had gotten worse. She also complained of tremors but noted that they were more consistent with mild clonus. CBC, CMP were all within normal limits with the exception of mild hyperkalemia. Patient has continued IV Solu-Medrol for the last 48 hours and is improving. Interval update: 02-18-17 On contact, the patient has returned to baseline. She was seated in bed, alert and oriented 3. Patient is able to ambulate with a walker but does have lower extremity weakness due to known multiple sclerosis. Patient to reestablish care outpatient was neurological provider within 14 days. Interval update: 02-17-17 On contact, patient was seated in bed, Alert and oriented 3, Patient does report some decreased symptoms. She is still stating she has difficulty ambulating with a walker due to lower extremity weakness. Patient is approximately 85% returned to baseline. PT to evaluate patient tomorrow. Objective - Vital Signs Vital signs: Vital Signs Temp 97.7 F 02/18/17 07:00 Pulse 51 L 02/18/17 07:00 Resp 16 02/18/17 07:00 BP 127/85 02/18/17 07:00 Pulse Ox 97 02/18/17 07:00 Intake & Output 02/18/17 02/18/17 02/19/17 06:59 18:59 06:59 Intake Total 350 Balance 350 Weight 48.534 kg Intake: Oral 350 Other: # Voids 1 1 - Exam Constitutional: AOx3, cooperative HEENT: NC/AT, no facial asymmetry is seen. Throat: Supple, no masses Respiratory: No increased work of breathing Cardiac: Regular rate and Rhythm GI: non tender, non distended Musculoskeletal: Vat Washer strengths are equal bilaterally 5/5, Lower extremity strengths are equal bilaterally at 5/5. Neurological: CN II-XII in tact, patient was AOx3, speech and language are normal, no unilateralizing weakness, no seizure activity note on physical exam. Sensation was normal. Mild postural tremor. Integementary: no rash, no erythema Psychiatric: mood and affect appropriate - Labs CBC & Chem 7: 02/15/17 08:26 02/15/17 08:26 Labs: Abnormal Lab Results - Last 24 Hours (Table) 02/18/17 02/18/17 Range/Units 07:01 12:33 POC Glucose (mg/dL) 141 H 120 H (75-99) mg/dL Assessment and Plan (1) Medical non-compliance Status: Acute (2) Multiple sclerosis exacerbation Status: Acute (3) Weakness Status: Acute (4) Seizure Status: Acute Plan: Patient has been experiencing a multiple sclerosis exacerbation. After beginning IV steroid infusion, the patient's symptoms have decreased. The patient will need ongoing further neurological management outpatient. Symptoms have returned to baseline. Patient's generalized weakness has improved. Patient will continue Depakote 500 mg every 8 hours. EEG was ordered and is pending. Patient is doing well on Depakote at this time and expresses no adverse effects. Depakote level is therapeutic at 89.9. Patient's MRI of the brain notes changes consistent with multiple sclerosis. Imitrex 25 mg, prescribed for severe migriane level headache abortive purposes Up to 3 times a day when necessary. Baclofen 10 mg, 1 tab, by mouth twice a day when necessary for spasticity. Patient was instructed that she may not take a narcotic/opioid pain medication in conjunction with her baclofen and her benzodiazepine. If patient is given a narcotic/opioid outpatient she was instructed that she must contact our office for further medication used directions. Neurology will clear the patient for discharge from a neurological standpoint. Patient will follow up outpatient in the office to reestablish prescribing of her multiple sclerosis medication, beta seron or another more appropriate medication based on provider determination at a later date. Baclofen pump will be discussed further outpatient as well. Patient to follow up within 10-14 days outpatient in our office.
--- NOTE | 2017-02-19 08:05 | EEG ---
DATE OF SERVICE: 02/16/2017 INDICATIONS FOR EXAMINATION: Seizures. AGE: 31Y Current antiepileptic medications: Keppra. DESCRIPTION OF PROCEDURE: This EEG was performed using a 21 channel digital electroencephalograph, following international 10-20 system. DESCRIPTION OF THE RECORDING: From the beginning of the tracing, with the patient's eyes closed, the background rhythm was mostly consisting of 9 Hz alpha frequency in the posterior occipital leads. No obvious asymmetry is seen. Photic stimulation was performed with a minimal driving response seen. No pathological waves were elicited. Hyperventilation was not performed. Occasional movement artifacts and muscle artifacts are noticed. The patient remains awake throughout the tracing. No epileptiform discharges were seen. Her EKG showed regular rate and rhythm. INTERPRETATION: This awake EEG can be considered within normal limits. There was no asymmetry seen. No epileptiform discharges were noticed. The absence of epileptiform discharges does not rule out the diagnosis of epilepsy, therefore, clinical correlation is recommended.
--- NOTE | 2017-02-19 09:29 | DS ---
DATE OF ADMISSION: 02/14/2017 DATE OF DISCHARGE: 02/18/2017 FINAL DIAGNOSES: 1. Acute exacerbation of multiple sclerosis. 2. Severe gait dysfunction secondary to #1. 3. Diffuse tremors. 4. Mild hypokalemia. 5. Hyperglycemia, steroid induced. 6. History of seizure disorder. 7. History of degenerative joint disease and chronic back pain. 8. History of scoliosis. 9. History of peripheral neuropathy. 10. History of anxiety, depression, bipolar not otherwise specified. 11. Social stressors. 12. FULL CODE. DISCHARGE DISPOSITION: Patient will be discharged in a stable condition with guarded prognosis. HISTORY OF PRESENT ILLNESS: This 31-year-old woman with a past medical history of multiple medical problems admitted with acute exacerbation of multiple sclerosis. The patient also had severe gait dysfunction and diffuse tremors also. Treated symptomatically, improved significantly. The patient seen by neurology. Awaiting psychiatry input. MRA was reviewed. On exam, vital signs stable. CARDIOVASCULAR: S1, S2. ABDOMEN: Soft. Nervous system: Mild diffuse weakness. DISCHARGE ADVICE AND MEDICATIONS: 1. Diet is cardiac. 2. Activity limited until follow-up. 3. Follow up with Dr. Anne and Dr. Hugo in 2 to 3 days. 4. Follow up with Dr. Alcazar as advised. 5. Follow up with [facility]. 6. Depakote 500 mg p.o. t.i.d. 7. Folic acid 1 mg daily. 8. Multivitamins one p.o. daily. 9. Imitrex 50 mg daily p.r.n. 10. The rest of the medications per Psych.
== END 2017-02-18 15:49 | disposition home or self-care (01) | DRG 60 ==
LOC: SUPCPDRO 12:22 → EC 12:22 → 4MS4W 16:33
PROVIDERS: ADMIT Hospitalist; ATTEND Hospitalist
DX: G35 Multiple sclerosis (principal); E87.5 Hyperkalemia; G40.409 Other generalized epilepsy and epileptic syndromes, not intractable, without status epilepticus; R13.10 Dysphagia, unspecified; G62.9 Polyneuropathy, unspecified; M41.9 Scoliosis, unspecified; F31.9 Bipolar disorder, unspecified; G89.29 Other chronic pain; M54.9 Dorsalgia, unspecified; R73.9 Hyperglycemia, unspecified; T38.0X5A Adverse effect of glucocorticoids and synthetic analogues, initial encounter; M19.91 Primary osteoarthritis, unspecified site; F43.10 Post-traumatic stress disorder, unspecified; F41.9 Anxiety disorder, unspecified; Z90.49 Acquired absence of other specified parts of digestive tract; Z91.14 Patient's other noncompliance with medication regimen; Z91.410 Personal history of adult physical and sexual abuse; Z98.51 Tubal ligation status; Z86.14 Personal history of Methicillin resistant Staphylococcus aureus infection; Z82.0 Family history of epilepsy and other diseases of the nervous system
CPT/HCPCS: 36415; 70553; 80048; 80053; 80164; 81001; 82550; 82553; 83036; 83605; 83735; 84100; 84443; 85025; 87086; 93005; 95819; 96361; 96365; 96375; 99285

== ENCOUNTER 2017-03-07 14:17 | Inpatient (IN) | payer OTHER ==
--- NOTE | 2017-03-07 15:15 | ED ---
General Adult HPI - General Chief complaint: Recheck/Abnormal Lab/Rx Stated complaint: MS flare up Time Seen by Provider: 03/07/17 14:46 Source: patient, EMS, RN notes reviewed Mode of arrival: EMS Limitations: no limitations - History of Present Illness Initial comments: Patient is a pleasant 31-year-old female presenting to the emergency department with concerns for her multiple sclerosis exacerbation. Patient states symptoms have been increasing over the past week. Patient was just discharged from the hospital a few weeks ago. Patient states her right leg is dragging. Patient has diffuse pain and diffuse weakness. Patient has been having difficulty swallowing her food. Patient has had some slurred speech. Patient has had similar symptoms multiple times previously associated multiple sclerosis. Patient has not yet had a chance follow-up with Dr. Alcazar from neurology. - Related Data Previous Rx's Medication Instructions Recorded ARIPiprazole [Abilify] 10 mg PO HS #30 tab 02/18/17 Baclofen 10 mg PO BID #60 tab 02/18/17 Divalproex [Depakote] 500 mg PO TID #90 tablet. 02/18/17 Folic Acid 1 mg PO DAILY@1200 #30 tab 02/18/17 Multivitamins, Thera [Multivitamin 1 each PO DAILY@1200 #30 tab 02/18/17 (formulary)] SUMAtriptan SUCCINATE [Imitrex] 25 mg PO TID #90 tablet 02/18/17 Allergies Allergy/AdvReac Type Severity Reaction Status Date / Time No Known Allergies Allergy Verified 03/07/17 15:07 Review of Systems ROS Statement: Those systems with pertinent positive or pertinent negative responses have been documented in the HPI. ROS Other: All systems not noted in ROS Statement are negative. Constitutional: Denies: fever Eyes: Denies: eye pain ENT: Denies: ear pain Respiratory: Denies: cough Cardiovascular: Denies: chest pain Endocrine: Reports: fatigue Gastrointestinal: Denies: abdominal pain Genitourinary: Denies: dysuria Musculoskeletal: Denies: back pain Skin: Denies: rash Neurological: Reports: weakness Past Medical History Past Medical History: Neurologic Disorder, Seizure Disorder Additional Past Medical History / Comment(s): multiple sclerosis, chronic back paion, scoliosis, ptsd, nuropathy"has epsiodes where i lose my vision for 48 hours sometimes", has upper front crowns. History of Any Multi-Drug Resistant Organisms: None Reported Past Surgical History: Appendectomy, Section, Tubal Ligation Additional Past Surgical History / Comment(s): D&C, CORRECTIVE EYE SURGERY Past Anesthesia/Blood Transfusion Reactions: No Reported Reaction Additional Past Anesthesia/Blood Transfusion Reaction / Comment(s): "SPINAL WAS DIFFICULT D/T SCOLIOSIS" Past Psychological History: Anxiety, Depression Smoking Status: Never smoker Past Alcohol Use History: Occasional Past Drug Use History: None Reported - Past Family History Father Family Medical History: Unable to Obtain Additional Family Medical History / Comment(s): does'nt know Mother Family Medical History: COPD Additional Family Medical History / Comment(s): 2 aunts have ms, another aunt has copd and cancer, grandmother had breast cancer General Exam Limitations: no limitations General appearance: alert, in no apparent distress Head exam: Present: atraumatic Eye exam: Present: normal appearance, PERRL ENT exam: Present: normal oropharynx Neck exam: Present: normal inspection Respiratory exam: Present: normal lung sounds bilaterally Cardiovascular Exam: Present: regular rate, normal rhythm GI/Abdominal exam: Present: soft. Absent: tenderness Extremities exam: Present: normal inspection, tenderness (Diffuse tenderness) Neurological exam: Present: alert, CN II-XII intact Expanded Cranial nerves: EOM's Intact: Normal Motor strength exam: RUE: 4, LUE: 4, RLE: 3, LLE: 4 Eye Response: (4) open spontaneously Motor Response: (6) obeys commands Verbal Response: (5) oriented Psychiatric exam: Present: normal affect, normal mood Skin exam: Present: normal color Course Vital Signs 03/07/17 03/07/17 14:19 15:26 Temperature 98.8 F Pulse Rate 126 H 116 H Respiratory 20 20 Rate Blood Pressure 145/87 161/99 O2 Sat by Pulse 97 98 Oximetry Medical Decision Making - Medical Decision Making Patient case was discussed with Dr. Spencer, who will admit. He did come evaluate the patient emergency department. He is covering for Dr. Duncan. He agrees with Solu-Medrol 500 mg every 12 hours until seen by neurology. Disposition Clinical Impression: Multiple sclerosis exacerbation Disposition: ADMITTED IP TO THIS [facility] Referrals: Evangelist Anne DO [Primary Care Provider] - 1-2 days Decision Time: 17:10
[2017-03-07] MEDS ORDERED: SODIUM CHLORIDE 0.9% 1,000 ML IV STA (17:07)
[2017-03-07] MEDS ORDERED: MORPHINE SULFATE 4 MG/ML SYRINGE IV PRN (17:10)
[2017-03-07] MEDS ORDERED: NALOXONE 0.4 MG/ML 1 ML VIAL IV PRN (17:10)
[2017-03-07 17:25] LABS: Appearance,Urine Clear (Clear); Basophils # (A) 0.1 k/uL (0-0.2); Basophils % (A) 1 %; Bilirubin,Urine Negative (Negative); CH 28.9; CHCM 32.9; Eosinophils # (A) 0.1 k/uL (0-0.7); Eosinophils % (A) 1 %; Glucose,Urine (UA) Negative (Negative); HCT 39.3 % (34.0-46.0); HDW 2.12; HGB 13.6 gm/dL (11.4-16.0); Ketones,Urine Negative (Negative); Leukocyte Esterase,Urine Negative (Negative); Luc # (Auto) 0.17; Luc % (Auto) 2; Lymphocytes # (A) 1.5 k/uL (1.0-4.8); Lymphocytes % (A) 18 %; MCH 30.5 pg (25.0-35.0); MCHC 34.6 g/dL (31.0-37.0); MCV 88.2 fL (80.0-100.0); Monocytes # (A) 0.4 k/uL (0-1.0); Monocytes % (A) 4 %; Neutrophils # (A) 6.5 k/uL (1.3-7.7); Neutrophils % (A) 75 %; Nitrite,Urine Negative (Negative); PH, Urine 6.5 (5.0-8.0); Protein,Urine Negative (Negative); RBC 4.45 m/uL (3.80-5.40); RDW 13.5 % (11.5-15.5); Specific Gravity,Urine 1.004 (1.001-1.035); UA Billing (MACRO vs. MICRO) CHEM; Urobilinogen,Urine <2.0 mg/dL (<2.0); WBC 8.7 k/uL (3.8-10.6); WBC (Perox) 8.87
[2017-03-07 17:34] LABS: INR 1.1 (<1.1); Partial Thromboplastin Time 23.3 sec (22.0-30.0); Prothrombin Time 11.3 sec (9.0-12.0)
[2017-03-07 18:05] LABS: ALT 32 U/L (9-52); AST 28 U/L (14-36); Alkaline Phosphatase 92 U/L (38-126); Anion Gap 12 mmol/L; Blood Urea Nitrogen 8 mg/dL (7-17); Calcium 9.1 mg/dL (8.4-10.2); Carbon Dioxide 22 mmol/L (22-30); Chloride 106 mmol/L (98-107); Glucose 104 mg/dL (74-99); Non-African American GFR(MDRD) >60 (>60 ml/min/1.73 sqM); Potassium 3.8 mmol/L (3.5-5.1); Sodium 140 mmol/L (137-145); Total Protein 6.6 g/dL (6.3-8.2)
[2017-03-07] MEDS: SODIUM CHLORIDE 0.9% 1,000 ML IV SCH (18:18)
[2017-03-07] MEDS ORDERED: SUMAtriptan SUCCINATE 25 MG TAB PO PRN (18:29)
--- NOTE | 2017-03-07 19:16 | XR ---
EXAMINATION TYPE: XR chest 3V DATE OF EXAM: 03/07/2017 COMPARISON: 04/01/2014 HISTORY: Weakness and dizziness TECHNIQUE: Frontal and lateral views of the chest are obtained. FINDINGS: There is no focal air space opacity, pleural effusion, or pneumothorax seen. The cardiac silhouette size is within normal limits. The osseous structures are intact. IMPRESSION: No acute cardiopulmonary process.
--- NOTE | 2017-03-07 20:20 | P.CNNES ---
History of Present Illness Consult date: 03/07/17 History of Present Illness: The patient is a 31-year-old white female who was diagnosed with MS [address] Hernandez. She reports that her spinal tap was negative but her MRI was suspicious. He was started on Betaseron and did well on that. Earlier this month the patient presented to the hospital with an MS exacerbation and was admitted for 5 days of steroid treatment. Patient reports that she went home and her symptoms came back and she had no relief. He came back to the hospital today with same complaints of numbness in the right leg weakness in the right leg burning sensation in the hands and feet. The patient also has a history of seizures her last one being 1 year ago. She reports she stopped taking all her medications about a year ago because she was tired of taking medications. 1-1/ 2 months ago however she her symptoms came back with EMS and her migraines etc. Her seizures did not return. During her last hospital stay however she was started on Depakote but she states she did not continue to take it. Review of Systems Constitutional: Denies chills, Denies fever Ears, nose, mouth and throat: Reports as per HPI Cardiovascular: Denies chest pain, Denies shortness of breath Respiratory: Denies cough Gastrointestinal: Denies abdominal pain, Denies diarrhea, Denies nausea, Denies vomiting Genitourinary: Reports as per HPI Musculoskeletal: Denies myalgias Integumentary: Denies pruritus, Denies rash Neurological: Denies numbness, Denies weakness Psychiatric: Denies anxiety, Denies depression Past Medical History Past Medical History: Neurologic Disorder, Seizure Disorder Additional Past Medical History / Comment(s): multiple sclerosis, chronic back paion, scoliosis, ptsd, nuropathy"has epsiodes where i lose my vision for 48 hours sometimes", has upper front [place] crowns. History of Any Multi-Drug Resistant Organisms: None Reported Past Surgical History: Appendectomy, Section, Tubal Ligation Additional Past Surgical History / Comment(s): D&C, CORRECTIVE EYE SURGERY Past Anesthesia/Blood Transfusion Reactions: No Reported Reaction Additional Past Anesthesia/Blood Transfusion Reaction / Comment(s): "SPINAL WAS DIFFICULT D/T SCOLIOSIS" Smoking Status: Never smoker - Past Family History Father Family Medical History: Unable to Obtain Additional Family Medical History / Comment(s): does'nt know Mother Family Medical History: COPD Additional Family Medical History / Comment(s): 2 aunts have ms, another aunt has copd and cancer, grandmother had breast cancer Medications and Allergies Allergies Allergy/AdvReac Type Severity Reaction Status Date / Time No Known Allergies Allergy Verified 03/07/17 15:07 Physical Examination - Vital Signs Vital Signs: Vital Signs Temp Pulse Pulse Resp BP BP Pulse Ox 03/07/17 18:24 97.0 F L 78 16 146/84 97 03/07/17 17:36 98.2 F 93 18 143/72 98 03/07/17 15:26 116 H 20 161/99 98 03/07/17 14:19 98.8 F 126 H 20 145/87 97 Intake and Output 03/07/17 03/07/17 03/07/17 06:59 14:59 22:59 Other: Voiding Method Toilet Weight 48.081 kg 49 kg Patient Weight 03/08/17 06:59 Weight 49 kg - Constitutional General appearance: thin - EENT EENT: PERRL, hearing intact, vision intact - Respiratory Respiratory: lungs clear - Cardiovascular Cardiovascular: regular rate - Neurologic She is awake alert and oriented 3 her speech is fluent there was no a aphasia or dysarthria Cranial nerve examination: PERRL, EOMI, V1/V2/V3 grossly intact, face symmetric , tongue midline Speech examination: intact Detailed motor examination: grossly full strength in all extremities Reflexes: 2+: knee - Psychiatric Psychiatric: depressed Results - Laboratory Findings CBC and BMP: 03/07/17 17:04 03/07/17 17:04 Abnormal Lab Findings: Abnormal Labs 03/07/17 17:04 Glucose 104 H Assessment and Plan (1) Multiple sclerosis exacerbation Status: Acute Code(s): G35 - MULTIPLE SCLEROSIS (2) History of seizures Status: Chronic Code(s): Z87.898 - PERSONAL HISTORY OF OTHER SPECIFIED CONDITIONS (3) Migraines Status: Acute Code(s): G43.909 - MIGRAINE, UNSP, NOT INTRACTABLE, WITHOUT STATUS MIGRAINOSUS Plan: The patient is a 31-year-old woman with remitting relapsing MS who presents to the hospital with exacerbation. She was recently hospitalized 2 weeks ago and received a full course of IV steroids. Will give the patient a three-day course of IV Solu-Medrol and some physical therapy. He'll be started on gabapentin for the burning sensation she is experiencing in her hands and feet. We'll also increase her baclofen to 10 mg 3 times a day for management of the spasticity in her right leg. She has not had a seizure in over a year and she is aware of the [place] law regarding driving and seizures.
[2017-03-07] MEDS ORDERED: BACLOFEN 10 MG TAB PO SCH (21:00)
[2017-03-07] MEDS: FAMOTIDINE 20 MG TAB PO SCH (21:39)
[2017-03-07] MEDS: ARIPiprazole 10 MG TAB PO SCH (21:39)
[2017-03-07] MEDS: BACLOFEN 10 MG TAB PO SCH (21:40)
[2017-03-07] MEDS: GABAPENTIN 100 MG CAP PO SCH (21:40)
[2017-03-07] MEDS: DIVALPROEX 500 MG TABLET.DR PO SCH (21:40)
[2017-03-08] MEDS: KETOROLAC 30 MG/ML 1 ML VIAL IVP PRN ×2 (00:27→20:52)
[2017-03-08 07:38] LABS: Glucose,Whole Blood 165 mg/dL (75-99)
[2017-03-08] MEDS: DIVALPROEX 500 MG TABLET.DR PO SCH ×3 (09:19→21:41)
[2017-03-08] MEDS: GABAPENTIN 100 MG CAP PO SCH ×3 (09:23→21:41)
[2017-03-08] MEDS: FAMOTIDINE 20 MG TAB PO SCH ×2 (09:24→20:52)
[2017-03-08] MEDS: BACLOFEN 10 MG TAB PO SCH ×3 (09:24→21:41)
[2017-03-08 11:44] LABS: Glucose,Whole Blood 144 mg/dL (75-99)
[2017-03-08] MEDS: MULTIVITAMINS, THERA 1 EACH TAB PO SCH (12:38)
[2017-03-08] MEDS: FOLIC ACID 1 MG TAB PO SCH (12:38)
[2017-03-08 13:17] VITALS: BMI 19.1
[2017-03-08 17:04] LABS: Glucose,Whole Blood 148 mg/dL (75-99)
[2017-03-08] MEDS: SODIUM CHLORIDE 0.9% 1,000 ML IV SCH (17:49)
--- NOTE | 2017-03-08 18:22 | P.PN ---
Subjective The patient is a 31-year-old woman who was admitted to the hospital yesterday with MS exacerbation. She is feeling much better today. She is receiving IV Solu-Medrol. She states that she is feeling very good and her symptoms have resolved. The increase in baclofen has helped her muscle spasm in the right leg. Also the burning sensation is reduced after adding gabapentin. She has no other new complaint. Objective - Vital Signs Vital signs: Vital Signs Temp 97.6 F 03/08/17 15:00 Pulse 98 03/08/17 15:00 Resp 18 03/08/17 15:00 BP 143/71 03/08/17 15:00 Pulse Ox 97 03/08/17 15:00 Intake & Output 03/07/17 03/08/17 03/08/17 18:59 06:59 18:59 Intake Total 400 Balance 400 Weight 49 kg 49 kg Intake: Oral 400 Other: Voiding Method Toilet Toilet # Voids 1 2 # Bowel Movements 1 - Constitutional General appearance: Present: average body habitus, thin - EENT Eyes: Present: EOMI, PERRLA - Respiratory Respiratory: bilateral: CTA - Cardiovascular Rhythm: regular - Neurologic Neurologic: Present: CNII-XII intact - Musculoskeletal Musculoskeletal: Present: strength equal bilaterally - Psychiatric Psychiatric: Present: A&O x's 3 - Labs CBC & Chem 7: 03/07/17 17:04 03/07/17 17:04 Labs: Abnormal Lab Results - Last 24 Hours (Table) 03/08/17 03/08/17 03/08/17 Range/Units 07:36 11:42 17:03 POC Glucose (mg/dL) 165 H 144 H 148 H (75-99) mg/dL Assessment and Plan (1) Multiple sclerosis exacerbation Status: Acute Code(s): G35 - MULTIPLE SCLEROSIS (2) History of seizures Status: Chronic Code(s): Z87.898 - PERSONAL HISTORY OF OTHER SPECIFIED CONDITIONS (3) Migraines Status: Acute Code(s): G43.909 - MIGRAINE, UNSP, NOT INTRACTABLE, WITHOUT STATUS MIGRAINOSUS Plan: The patient is a 31-year-old woman admitted to the hospital with MS exacerbation. She has been started on IV Solu-Medrol. She is doing much better today. She should be able to go home tomorrow or Bg. She has been doing well in terms of her headaches as well. She is currently on Depakote for seizure management as well as migraines. The increase in baclofen has helped her spasms and pain. She should continue on the present dose of gabapentin for her burning sensations.
[2017-03-08] MEDS: ARIPiprazole 10 MG TAB PO SCH (20:52)
[2017-03-08 20:59] LABS: Glucose,Whole Blood 134 mg/dL (75-99)
[2017-03-09 07:21] LABS: Glucose,Whole Blood 139 mg/dL (75-99)
[2017-03-09 07:31] VITALS: BP 102/58; PULSE 69; RESP 16; TEMP 96.1
[2017-03-09 09:03] LABS: Basophils % (A) 0 %; CH 29.1; CHCM 32.3; Eosinophils % (A) 0 %; HCT 35.6 % (34.0-46.0); HDW 2.08; HGB 11.9 gm/dL (11.4-16.0); Luc # (Auto) 0.08; Luc % (Auto) 1; Lymphocytes # (A) 0.5 k/uL (1.0-4.8); Lymphocytes % (A) 4 %; MCH 30.1 pg (25.0-35.0); MCHC 33.4 g/dL (31.0-37.0); MCV 90.2 fL (80.0-100.0); Monocytes # (A) 0.3 k/uL (0-1.0); Monocytes % (A) 2 %; Neutrophils # (A) 12.4 k/uL (1.3-7.7); Neutrophils % (A) 93 %; RBC 3.95 m/uL (3.80-5.40); RDW 13.4 % (11.5-15.5); WBC 13.3 k/uL (3.8-10.6); WBC (Perox) 13.66
[2017-03-09] MEDS: GABAPENTIN 100 MG CAP PO SCH (09:11)
[2017-03-09] MEDS: DIVALPROEX 500 MG TABLET.DR PO SCH (09:11)
[2017-03-09] MEDS: FAMOTIDINE 20 MG TAB PO SCH (09:11)
[2017-03-09] MEDS: BACLOFEN 10 MG TAB PO SCH (09:12)
[2017-03-09 09:27] LABS: Anion Gap 11 mmol/L; Blood Urea Nitrogen 15 mg/dL (7-17); Calcium 9.1 mg/dL (8.4-10.2); Carbon Dioxide 24 mmol/L (22-30); Chloride 105 mmol/L (98-107); Glucose 133 mg/dL (74-99); Non-African American GFR(MDRD) >60 (>60 ml/min/1.73 sqM); Potassium 4.7 mmol/L (3.5-5.1); Sodium 140 mmol/L (137-145)
[2017-03-09 12:07] LABS: Glucose,Whole Blood 158 mg/dL (75-99)
[2017-03-09] MEDS: MULTIVITAMINS, THERA 1 EACH TAB PO SCH (12:28)
[2017-03-09] MEDS: FOLIC ACID 1 MG TAB PO SCH (12:28)
--- NOTE | 2017-03-09 14:17 | P.PN ---
Subjective Ms. Blanca is a 31-year-old white female with the PMH of seizure disorder who was diagnosed with MS [address] Hernandez. She reports that her spinal tap was negative but her MRI was suspicious. He was started on Betaseron and did well on that. Earlier this month the patient presented to the hospital with an MS exacerbation and was admitted for 5 days of steroid treatment. Patient reports that she went home and her symptoms came back and she had no relief. He came back to the hospital today with same complaints of numbness in the right leg weakness in the right leg burning sensation in the hands and feet. The patient also has a history of seizures her last one being 1 year ago. She reports she stopped taking all her medications about a year ago because she was tired of taking medications. 1-1/2 months ago however she her symptoms came back with EMS and her migraines etc. Her seizures did not return. During her last hospital stay however she was started on Depakote but she states she did not continue to take it. She is admitted for MS exacerbation due to non compliance and is currently on IV solu medrol . HEr energy levels are much better than couple of days back. Constitutional: Denies chills, Denies fever Ears, nose, mouth and throat: Reports as per HPI Cardiovascular: Denies chest pain, Denies shortness of breath Respiratory: Denies cough Gastrointestinal: Denies abdominal pain, Denies diarrhea, Denies nausea, Denies vomiting Objective - Vital Signs Vital signs: Vital Signs Temp 97.6 F 03/08/17 15:00 Pulse 98 03/08/17 15:00 Resp 18 03/08/17 15:00 BP 143/71 03/08/17 15:00 Pulse Ox 97 03/08/17 15:00 Intake & Output 03/08/17 03/08/17 03/09/17 06:59 18:59 06:59 Intake Total 400 Balance 400 Weight 49 kg Intake: Oral 400 Other: Voiding Method Toilet # Voids 1 2 # Bowel Movements 1 - Exam General appearance: alert, in no apparent distress Head exam: Present: atraumatic Eye exam: Present: normal appearance, PERRL ENT exam: Present: normal oropharynx Neck exam: Present: normal inspection Respiratory exam: Present: normal lung sounds bilaterally Cardiovascular Exam: Present: regular rate, normal rhythm GI/Abdominal exam: Present: soft. Absent: tenderness Extremities exam: Present: normal inspection, tenderness (Diffuse tenderness) Neurological exam: Present: alert, CN II-XII intact Expanded Cranial nerves: EOM's Intact: Normal Motor strength exam: RUE: 4, LUE: 4, RLE: 3, LLE: 4 Eye Response: (4) open spontaneously Motor Response: (6) obeys commands Verbal Response: (5) oriented Psychiatric exam: Present: normal affect, normal mood Skin exam: Present: normal color - Labs CBC & Chem 7: 03/09/17 08:18 03/09/17 08:18 Labs: Abnormal Lab Results - Last 24 Hours (Table) 03/08/17 03/08/17 03/08/17 Range/Units 07:36 11:42 17:03 POC Glucose (mg/dL) 165 H 144 H 148 H (75-99) mg/dL 03/08/17 Range/Units 20:40 POC Glucose (mg/dL) 134 H (75-99) mg/dL Assessment and Plan Plan: Assessment Acute exacerbation of multiple sclerosis due to noncompliance Seizure history History of migraine headaches Plan Patient was started on IV Solu-Medrol and her symptoms did improve. Neurology on board and following the patient. We will continue with the current medication regimen. Further recommendations to follow depending on the progress of the patient.
--- NOTE | 2017-03-09 21:27 | P.DS ---
Providers Date of admission: 03/08/17 12:01 Attending physician: Matheus Spencer Consults: 03/07/17 17:11 Consult Physician Urgent Consulting Provider: Margaux Shepard Consult Reason/Comments: Multiple sclerosis exacerbation Do you want consulting provider notified?: Yes [facility] Course: Mrs. Blanca is a 31-year-old female with a past medical history of seizures, migraine headaches, recently diagnosed with multiple sclerosis admitted to the hospital with a chief complaint of diffuse weakness and fatigue. he reports that her spinal tap was negative but her MRI was suspicious. He was started on Betaseron and did well on that. Earlier this month the patient presented to the hospital with an MS exacerbation and was admitted for 5 days of steroid treatment. Patient reports that she went home and her symptoms came back and she had no relief. He came back to the hospital today with same complaints of numbness in the right leg weakness in the right leg burning sensation in the hands and feet. The patient also has a history of seizures her last one being 1 year ago. She reports she stopped taking all her medications about a year ago because she was tired of taking medications. 1-1/ 2 months ago however she her symptoms came back with EMS and her migraines etc. Her seizures did not return. During her last hospital stay however she was started on Depakote but she states she did not continue to take it. She is admitted for MS exacerbation due to non compliance and is currently on IV solu medrol . HEr energy levels are much better than couple of days back. Her medications doses have been increased and she feels much better today. Neurology has cleared her for discharge. She completed a three-day course of IV Solu-Medrol. More than 35 minutes spent towards discharge of the patient Plan - Discharge Summary New Discharge Prescriptions: New Gabapentin [Neurontin] 100 mg PO TID #30 cap Continue ARIPiprazole [Abilify] 10 mg PO HS #30 tab Baclofen 10 mg PO BID #60 tab Divalproex [Depakote] 500 mg PO TID #90 tablet. Folic Acid 1 mg PO DAILY@1200 #30 tab Multivitamins, Thera [Multivitamin (formulary)] 1 each PO DAILY@1200 #30 tab SUMAtriptan SUCCINATE [Imitrex] 25 mg PO TID #90 tablet Discharge Medication List ARIPiprazole [Abilify] 10 mg PO HS #30 tab 03/09/17 [Rx] Baclofen 10 mg PO BID #60 tab 03/09/17 [Rx] Divalproex [Depakote] 500 mg PO TID #90 tablet. 03/09/17 [Rx] Folic Acid 1 mg PO DAILY@1200 #30 tab 03/09/17 [Rx] Gabapentin [Neurontin] 100 mg PO TID #30 cap 03/09/17 [Rx] Multivitamins, Thera [Multivitamin (formulary)] 1 each PO DAILY@1200 #30 tab 09/25 [Rx] SUMAtriptan SUCCINATE [Imitrex] 25 mg PO TID #90 tablet 03/09/17 [Rx] Follow up Appointment(s)/Referral(s): Evangelist Anne DO [Primary Care Provider] - 1-2 days Discharge Disposition: HOME SELF-CARE Pending Studies Pending Results: She has an upcoming appointment the neurology Dr. Alcazar in 4 days. She is advised to keep the appointment
--- NOTE | 2017-03-10 11:37 | HP ---
CHIEF COMPLAINT: Right leg weakness and numbness. HISTORY OF PRESENT ILLNESS: Mrs. Blanca is a 31-year-old female with known history of multiple sclerosis and seizure disorder. Patient was diagnosed 2 years ago with suspicious MRI. Patient was recently admitted to the hospital for multiple sclerosis exacerbation and sent home after course of steroids in the hospital. The patient was sent home and after that the patient developed again right leg weakness as well as numbness and numbing sensation in the right lower extremity as well as right upper extremity. Patient came to the hospital. Patient denies any seizure activity. No fever or chills. Currently the patient was started on methylprednisolone 250 mg q.6 hourly. Neurology has been consulted. Chest x-ray showed no acute cardiopulmonary process. Patient denied any fever or chills. No cough or sputum production. No nausea, vomiting or abdominal pain. No headache, dizziness or lightheadedness. No chest pain or palpitations. No orthopnea, no PND. No recent travel. All other review of systems negative except as above. PAST MEDICAL HISTORY: 1. Multiple sclerosis diagnosed 2 years ago. 2. History of seizure disorder, has not had a seizure since 1 year. 3. Chronic back pain. 4. Scoliosis. 5. PTSD. 6. Neuropathy. 7. History of appendectomy. 8. C. section. 9. tubal ligation. 10. D and C. 11. Corrective eye surgery. SOCIAL HISTORY: Patient never a smoker. Denied any alcohol. Denied any drugs or IVDU. FAMILY HISTORY: Father unable to obtain. Mother had COPD. Aunt has multiple sclerosis. Grandmother had breast cancer. ALLERGIES: No known drug allergies. HOME MEDICATIONS: 1. Depakote. 2. Folic acid. 3. Multivitamin. 4. Imitrex. PHYSICAL EXAMINATION: A 31-year-old female, lying in bed, awake, alert, oriented x3. Patient in no apparent distress. VITALS: Blood pressure 146/84, pulse rate 78, respirations 16, temperature afebrile. Pulse ox 97% on room air. HEENT: Atraumatic, normocephalic. NECK: Supple. No JVD. CVS: S1, S2 heard. No murmurs, no gallops. LUNGS: Bilateral air entry is present. No wheezing no crackles. Nonlabored breathing. ABDOMEN: Soft, nontender. Bowel sounds present. PAYABLE REPRESENTATIVE: Awake, alert, oriented x3. Patient does have a right upper extremity 4/5 and right lower extremity 4/5. No sensory deficits. EXTREMITIES: No edema. Pulses palpable bilaterally. No clubbing or cyanosis. PSYCHIATRIC: Cooperative. LABORATORY DATA: WBC 8.7, hemoglobin 13.6, platelets 257 and INR 1.1. Sodium 140, potassium 3.8, chloride 106, bicarb is 32, BUN 8, creatinine 0.6. UA negative for infection. IMPRESSION: 1. Acute multiple sclerosis exacerbation. Patient will be continued on methylprednisolone 250 mg q.6 hourly. Neurology has been consulted. 2. History of seizure disorder. Continue with the Dilantin and no recent seizure activity. 3. Chronic back pain. 4. Scoliosis. 5. History of migraine headache. 6. Posttraumatic stress disorder. 7. Neuropathy. 8. Lower extremity spasticity currently on Baclofen. DISCUSSION AND PLAN: The patient will be continued on steroids. Continue the home medications and follow closely. Further recommendations based on the clinical course. SKYED
== END 2017-03-09 15:15 | disposition home or self-care (01) | DRG 60 ==
LOC: EC 14:17 → 4MS4W 17:13 → OBSVTOIN 03-08 12:01
PROVIDERS: ADMIT Internal Medicine; ATTEND Internal Medicine
DX: G35 Multiple sclerosis (principal); G62.9 Polyneuropathy, unspecified; F32.9 Major depressive disorder, single episode, unspecified; F43.10 Post-traumatic stress disorder, unspecified; G40.909 Epilepsy, unspecified, not intractable, without status epilepticus; G43.909 Migraine, unspecified, not intractable, without status migrainosus; G89.29 Other chronic pain; M41.9 Scoliosis, unspecified; R13.10 Dysphagia, unspecified; M54.9 Dorsalgia, unspecified; F41.9 Anxiety disorder, unspecified; M62.838 Other muscle spasm; Z79.899 Other long term (current) drug therapy; Z91.19 Patient's noncompliance with other medical treatment and regimen
CPT/HCPCS: 36415; 71020; 80048; 80053; 81003; 85025; 85610; 85730; 94760; 99285

== ENCOUNTER 2017-06-02 15:39 | Inpatient (IN) | payer OTHER ==
[2017-06-02] MEDS ORDERED: SODIUM CHLORIDE 0.9% 1,000 ML IV ONE (16:40)
[2017-06-02] MEDS ORDERED: METOCLOPRAMIDE 5 MG/ML 2 ML VIAL IVP STA (16:40)
[2017-06-02] MEDS ORDERED: methylPREDNISolone SOD SUCCI 125 MG/2 ML VIAL IV STA ×2 (16:40→17:15)
[2017-06-02] MEDS ORDERED: KETOROLAC 30 MG/ML 1 ML VIAL IVP STA (16:40)
[2017-06-02] MEDS ORDERED: diphenhydrAMINE 50 MG/ML 1 ML VIAL IVP STA (16:40)
--- NOTE | 2017-06-02 16:57 | ED ---
Neuro HPI - General Chief Complaint: Neuro Symptoms/Deficit Stated Complaint: Pt has MS/SOB/Tremors Time Seen by Provider: 06/02/17 16:00 Source: patient Mode of arrival: wheelchair Limitations: no limitations - History of Present Illness Is the patient presenting with stroke symptoms?: No Initial Comments: 31-year-old female with past medical history of MS presented for evaluation of generalized tremors, difficulty swallowing, headache, and blurred vision. She states that she's also be taking baclofen, Abilify, and Neurontin however she ran out of her medications and hasn't taken them for some time. Her neurologist is Dr. Shepard however she states she has only seen him during admission and hasn't followed up as an outpatient. Her last admission was in February for the same symptoms. She hasn't followed up with her PCP for either these symptoms or to get her medications refilled. She states her RLE is worse than the rest, "locking up" and making it difficult for her to ambulate. Although she has had difficulty swallowing she states she was drinking just prior to arrival. - Related Data Home Medications: Home Medications Medication Instructions Recorded Confirmed Folic Acid 1 mg PO DAILY 06/02/17 06/02/17 Multivitamins, Thera [Multivitamin 1 tab PO DAILY 06/02/17 06/02/17 (formulary)] SUMAtriptan SUCCINATE [Imitrex] 25 mg PO BID PRN 06/02/17 06/02/17 Previous Rx's Medication Instructions Recorded ARIPiprazole [Abilify] 10 mg PO HS #30 tab 03/09/17 Baclofen 10 mg PO BID #60 tab 03/09/17 Divalproex [Depakote] 500 mg PO TID #90 tablet. 03/09/17 Gabapentin [Neurontin] 100 mg PO TID #30 cap 03/09/17 Allergies/Adverse Reactions: Allergies Allergy/AdvReac Type Severity Reaction Status Date / Time No Known Allergies Allergy Verified 06/02/17 16:10 Review of Systems ROS Statement: Those systems with pertinent positive or pertinent negative responses have been documented in the HPI. ROS Other: All systems not noted in ROS Statement are negative. Constitutional: Denies: fever, chills Eyes: Reports: vision change. Denies: eye pain, eye discharge ENT: Reports: other (difficulty swallowing). Denies: ear pain, throat pain Respiratory: Denies: cough, dyspnea Cardiovascular: Denies: chest pain, palpitations Endocrine: Denies: fatigue, heat or cold intolerance Gastrointestinal: Reports: nausea. Denies: abdominal pain, vomiting, diarrhea, constipation Genitourinary: Denies: urgency, dysuria Musculoskeletal: Denies: back pain, joint swelling Skin: Denies: rash, lesions Neurological: Reports: headache, weakness (generalized), other (tremors (diffuse )). Denies: confusion Psychiatric: Denies: anxiety, depression Hematological/Lymphatic: Denies: easy bleeding, easy bruising General Exam Limitations: no limitations General appearance: alert, in no apparent distress Head exam: Present: atraumatic, normocephalic, normal inspection Eye exam: Present: PERRL, other (minor left sided exotropia). Absent: normal appearance, scleral icterus, conjunctival injection ENT exam: Present: normal exam, mucous membranes moist Neck exam: Present: normal inspection. Absent: tenderness, meningismus, lymphadenopathy Respiratory exam: Present: normal lung sounds bilaterally. Absent: respiratory distress, wheezes, rales, rhonchi, stridor Cardiovascular Exam: Present: normal rhythm, tachycardia GI/Abdominal exam: Present: soft, normal bowel sounds. Absent: distended, tenderness, guarding, rebound, rigid Rectal exam: Present: deferred Extremities exam: Present: normal inspection, full ROM, normal capillary refill. Absent: tenderness, pedal edema, joint swelling, calf tenderness Back exam: Present: normal inspection Neurological exam: Present: alert, oriented X3, CN II-XII intact Psychiatric exam: Present: normal affect, normal mood Skin exam: Present: warm, intact, normal color, diaphoretic. Absent: rash Stroke MDM - Lab Data Result diagrams: 06/02/17 16:46 06/02/17 16:46 Lab Results 06/02/17 06/02/17 06/02/17 Range/Units 16:46 16:46 16:46 WBC 10.6 (3.8-10.6) k/uL RBC 4.82 (3.80-5.40) m/uL Hgb 13.9 (11.4-16.0) gm/dL Hct 43.9 (34.0-46.0) % MCV 91.1 (80.0-100.0) fL MCH 28.8 (25.0-35.0) pg MCHC 31.6 (31.0-37.0) g/dL RDW 13.7 (11.5-15.5) % Plt Count 304 (150-450) k/uL Neutrophils % 71 % Lymphocytes % 21 % Monocytes % 5 % Eosinophils % 0 % Basophils % 1 % Neutrophils # 7.5 (1.3-7.7) k/uL Lymphocytes # 2.3 (1.0-4.8) k/uL Monocytes # 0.5 (0-1.0) k/uL Eosinophils # 0.0 (0-0.7) k/uL Basophils # 0.1 (0-0.2) k/uL Sodium 137 (137-145) mmol/L Potassium 4.5 (3.5-5.1) mmol/L Chloride 104 (98-107) mmol/L Carbon Dioxide 18 L (22-30) mmol/L Anion Gap 15 mmol/L BUN 21 H (7-17) mg/dL Creatinine 0.73 (0.52-1.04) mg/dL Est GFR (MDRD) Af Amer >60 (>60 ml/min/1.73 sqM) Est GFR (MDRD) Non-Af >60 (>60 ml/min/1.73 sqM) Glucose 97 (74-99) mg/dL Calcium 10.0 (8.4-10.2) mg/dL Total Bilirubin 0.7 (0.2-1.3) mg/dL AST 23 (14-36) U/L ALT 25 (9-52) U/L Alkaline Phosphatase 110 (38-126) U/L Total Protein 7.7 (6.3-8.2) g/dL Albumin 4.8 (3.5-5.0) g/dL Lipase 51 (23-300) U/L Urine Color Urine Appearance (Clear) Urine pH (5.0-8.0) Ur Specific [place] (1.001-1.035) Urine Protein (Negative) Urine Glucose (UA) (Negative) Urine Ketones (Negative) Urine Blood (Negative) Urine Nitrite (Negative) Urine Bilirubin (Negative) Urine Urobilinogen (<2.0) mg/dL Ur Leukocyte Esterase (Negative) Urine RBC (0-5) /hpf Urine WBC (0-5) /hpf Ur Squamous Epith Cells (0-4) /hpf Urine Bacteria (None) /hpf Urine Mucus (None) /hpf Urine HCG, Qual Not Detected (Not Detectd) 06/02/17 Range/Units 16:46 WBC (3.8-10.6) k/uL RBC (3.80-5.40) m/uL Hgb (11.4-16.0) gm/dL Hct (34.0-46.0) % MCV (80.0-100.0) fL MCH (25.0-35.0) pg MCHC (31.0-37.0) g/dL RDW (11.5-15.5) % Plt Count (150-450) k/uL Neutrophils % % Lymphocytes % % Monocytes % % Eosinophils % % Basophils % % Neutrophils # (1.3-7.7) k/uL Lymphocytes # (1.0-4.8) k/uL Monocytes # (0-1.0) k/uL Eosinophils # (0-0.7) k/uL Basophils # (0-0.2) k/uL Sodium (137-145) mmol/L Potassium (3.5-5.1) mmol/L Chloride (98-107) mmol/L Carbon Dioxide (22-30) mmol/L Anion Gap mmol/L BUN (7-17) mg/dL Creatinine (0.52-1.04) mg/dL Est GFR (MDRD) Af Amer (>60 ml/min/1.73 sqM) Est GFR (MDRD) Non-Af (>60 ml/min/1.73 sqM) Glucose (74-99) mg/dL Calcium (8.4-10.2) mg/dL Total Bilirubin (0.2-1.3) mg/dL AST (14-36) U/L ALT (9-52) U/L Alkaline Phosphatase (38-126) U/L Total Protein (6.3-8.2) g/dL Albumin (3.5-5.0) g/dL Lipase (23-300) U/L Urine Color Yellow Urine Appearance Cloudy H (Clear) Urine pH 8.0 (5.0-8.0) Ur Specific [place] 1.020 (1.001-1.035) Urine Protein Trace H (Negative) Urine Glucose (UA) Negative (Negative) Urine Ketones Trace H (Negative) Urine Blood Negative (Negative) Urine Nitrite Negative (Negative) Urine Bilirubin Negative (Negative) Urine Urobilinogen <2.0 (<2.0) mg/dL Ur Leukocyte Esterase Negative (Negative) Urine RBC <1 (0-5) /hpf Urine WBC 4 (0-5) /hpf Ur Squamous Epith Cells 8 H (0-4) /hpf Urine Bacteria Rare H (None) /hpf Urine Mucus Rare H (None) /hpf Urine HCG, Qual (Not Detectd) - Medical Decision Making 31-year-old female with past medical history of MS presented for evaluation of exacerbation. She states that her symptoms include diffuse tremors, headache, nausea, blurred vision. She was admitted in February for similar symptoms. On physical examination she is tremulous and has left eye exotropia. Remainder of her physical and neurologic exam is benign. The patient was discussed with her neurologist who saw her during last admission and Dr. Shepard who recommended that she be admitted with IV Solu-Medrol 250 mg every 6 hours. The patient was discussed with Dr. Spencer who accepted the admission without further request. Admission order placed and bed request submitted. Past Medical History Past Medical History: Neurologic Disorder, Seizure Disorder Additional Past Medical History / Comment(s): multiple sclerosis, chronic back paion, scoliosis, ptsd, nuropathy"has epsiodes where i lose my vision for 48 hours sometimes", has upper front [place] crowns. History of Any Multi-Drug Resistant Organisms: None Reported Past Surgical History: Appendectomy, Section, Tubal Ligation Additional Past Surgical History / Comment(s): D&C, CORRECTIVE EYE SURGERY Past Anesthesia/Blood Transfusion Reactions: No Reported Reaction Additional Past Anesthesia/Blood Transfusion Reaction / Comment(s): "SPINAL WAS DIFFICULT D/T SCOLIOSIS" Past Psychological History: Anxiety, Depression Smoking Status: Never smoker Past Alcohol Use History: Occasional Past Drug Use History: None Reported - Past Family History Father Family Medical History: Unable to Obtain Additional Family Medical History / Comment(s): does'nt know Mother Family Medical History: COPD Additional Family Medical History / Comment(s): 2 aunts have ms, another aunt has copd and cancer, grandmother had breast cancer Course Vital Signs 06/02/17 06/02/17 06/02/17 15:45 17:26 18:49 Temperature 97.9 F 98.2 F Pulse Rate 103 H 93 69 Respiratory 18 18 18 Rate Blood Pressure 97/55 149/82 116/78 O2 Sat by Pulse 98 98 98 Oximetry Disposition Clinical Impression: Multiple sclerosis exacerbation Disposition: ADMITTED IP TO THIS [facility] Decision to Admit Reason: Admit from EC Decision Date: 06/02/17 Decision Time: 17:39
[2017-06-02 16:59] LABS: Basophils # (A) 0.1 k/uL (0-0.2); Basophils % (A) 1 %; CH 30.1; CHCM 33.2; Eosinophils % (A) 0 %; HCT 43.9 % (34.0-46.0); HGB 13.9 gm/dL (11.4-16.0); Luc # (Auto) 0.21; Luc % (Auto) 2; Lymphocytes # (A) 2.3 k/uL (1.0-4.8); Lymphocytes % (A) 21 %; MCH 28.8 pg (25.0-35.0); MCHC 31.6 g/dL (31.0-37.0); MCV 91.1 fL (80.0-100.0); Mean Platelet Volume 7.6; Monocytes # (A) 0.5 k/uL (0-1.0); Monocytes % (A) 5 %; Neutrophils # (A) 7.5 k/uL (1.3-7.7); Neutrophils % (A) 71 %; RBC 4.82 m/uL (3.80-5.40); RDW 13.7 % (11.5-15.5); WBC 10.6 k/uL (3.8-10.6); WBC (Perox) 11.44
[2017-06-02 17:05] LABS: Appearance,Urine Cloudy (Clear); Bacteria,Urine Rare /hpf; Bilirubin,Urine Negative (Negative); Glucose,Urine (UA) Negative (Negative); Ketones,Urine Trace (Negative); Leukocyte Esterase,Urine Negative (Negative); Mucus,Urine Rare /hpf; Nitrite,Urine Negative (Negative); Particle Count 4503; Protein,Urine Trace (Negative); RBC,Urine <1 /hpf (0-5); Squamous Epithelial Cell,Urine 8 /hpf (0-4); UA Billing (MACRO vs. MICRO) MICRO; Urobilinogen,Urine <2.0 mg/dL (<2.0); WBC,Urine 4 /hpf (0-5)
[2017-06-02 17:16] LABS: ALT 25 U/L (9-52); AST 23 U/L (14-36); Alkaline Phosphatase 110 U/L (38-126); Anion Gap 15 mmol/L; Blood Urea Nitrogen 21 mg/dL (7-17); Carbon Dioxide 18 mmol/L (22-30); Chloride 104 mmol/L (98-107); Glucose 97 mg/dL (74-99); Non-African American GFR(MDRD) >60 (>60 ml/min/1.73 sqM); Potassium 4.5 mmol/L (3.5-5.1); Sodium 137 mmol/L (137-145); Total Bilirubin 0.7 mg/dL (0.2-1.3); Total Protein 7.7 g/dL (6.3-8.2)
[2017-06-02] MEDS ORDERED: NALOXONE 0.4 MG/ML 1 ML VIAL IV PRN (17:33)
--- NOTE | 2017-06-02 17:41 | XR ---
EXAMINATION TYPE: XR chest 2V DATE OF EXAM: 06/02/2017 COMPARISON: 03/07/2017 HISTORY: Tremors. Chest pain. TECHNIQUE: Frontal and lateral views of the chest are obtained. FINDINGS: Heart and mediastinum are normal. Lungs are clear. Diaphragm is normal. Bony thorax is int act. IMPRESSION: Normal chest. No change.
[2017-06-02] MEDS ORDERED: methylPREDNISolone SOD SUCCI 125 MG/2 ML VIAL IV SCH (18:00)
[2017-06-02] MEDS: SODIUM CHLORIDE 0.9% 1,000 ML IV SCH (19:34)
[2017-06-02 20:02] VITALS: BMI 19.8
[2017-06-02] MEDS ORDERED: SUMAtriptan SUCCINATE 25 MG TAB PO PRN (21:44)
[2017-06-02] MEDS ORDERED: BACLOFEN 10 MG TAB PO SCH (21:45)
[2017-06-02] MEDS: methylPREDNISolone SOD SUCCI 250 MG in SODIUM CHLORIDE 0.9% 100 ML IVPB SCH (22:53)
[2017-06-02] MEDS: BACLOFEN 10 MG TAB PO SCH (22:53)
[2017-06-02] MEDS: GABAPENTIN 100 MG CAP PO SCH (22:53)
[2017-06-02] MEDS: ARIPiprazole 10 MG TAB PO SCH (22:53)
[2017-06-02] MEDS: FAMOTIDINE 20 MG TAB PO SCH (22:53)
[2017-06-02] MEDS: DIVALPROEX 500 MG TABLET.DR PO SCH (22:54)
[2017-06-02] MEDS ORDERED: KETOROLAC 30 MG/ML 1 ML VIAL IVP PRN (22:57)
[2017-06-03] MEDS: methylPREDNISolone SOD SUCCI 250 MG in SODIUM CHLORIDE 0.9% 100 ML IVPB SCH ×4 (05:25→23:26)
--- NOTE | 2017-06-03 06:44 | P.CNNES ---
History of Present Illness Consult date: 06/02/17 Reason for Consult: Patient admitted with acute MS exacerbation. History of Present Illness: This patient is a 31-year-old female who was diagnosed with multiple sclerosis about 2 years ago. Her neurologist at the time and recommended several interferon therapies. Apparently he moved and she has not had any consistent follow-up with a neurologist for her multiple sclerosis. She was just recently admitted to Hospital on 03/07/2017 for similar MS exacerbation. Patient was being followed by neurologist Dr. Hernandez previously and states that she underwent a spinal tap which was negative. She underwent an MRI of the brain which revealed evidence of a bright white matter changes consistent with patient's history of MS. The patient was treated in February with IV steroids. She once again has been unable to keep follow-up in the neurology clinic. Her last treatment for her MS about a year ago was Betaseron. Patient also has a history of severe bipolar disorder and severe depression. We have recommended a psychiatry consultation for further evaluation. Patient states that most of her weakness is on the right side. She has been unable to walk due to the recent MS flare up. Patient also has a remote history of tremors and seizures. She was taking baclofen for treatment of spasticity but once again ran out of medications as she had normal follow-up with the neurologist. The patient was brought into to the emergency room where she complained of right lower extremity leg weakness. She also had multiple complaints of difficulty with her swallowing and generalized fatigue. Patient was seen in the ER by Dr. Colon who recommended admission for the patient. She'll be started on IV Solu-Medrol and we will obtain a physical therapy consultation. Patient is now admitted and neurology has been consulted for further evaluation and recommendations. Review of Systems Constitutional: Denies chills, Denies fever Eyes: denies blurred vision, denies pain Ears, nose, mouth and throat: Denies headache, Denies sore throat Cardiovascular: Denies chest pain, Denies shortness of breath Respiratory: Denies cough Gastrointestinal: Denies abdominal pain, Denies diarrhea, Denies nausea, Denies vomiting Genitourinary: Denies dysuria, Denies hematuria Musculoskeletal: Denies myalgias Integumentary: Denies pruritus, Denies rash Neurological: Reports balance difficulties, Reports burning pain, Reports lack of coordination, Reports migraines, Reports paresthesias, Reports spasticity, Reports tingling, Reports tremors, Denies numbness, Denies weakness Psychiatric: Denies anxiety, Denies depression Endocrine: Denies fatigue, Denies weight change Past Medical History Past Medical History: Neurologic Disorder, Seizure Disorder Additional Past Medical History / Comment(s): multiple sclerosis, chronic back pain, scoliosis, ptsd, nuropathy "has epsiodes where i lose my vision for 48 hours sometimes", History of Any Multi-Drug Resistant Organisms: None Reported Past Surgical History: Appendectomy, Section, Tubal Ligation Additional Past Surgical History / Comment(s): D&C, CORRECTIVE EYE SURGERY Past Anesthesia/Blood Transfusion Reactions: No Reported Reaction Additional Past Anesthesia/Blood Transfusion Reaction / Comment(s): "SPINAL WAS DIFFICULT D/T SCOLIOSIS" Past Psychological History: Anxiety, Depression Additional Psychological History / Comment(s): pt stated she is , lives with her 4 children ages 6,8,11,13 and 1 pet cat in single level home no steps. no outside services,uses a walker Smoking Status: Never smoker Past Alcohol Use History: Occasional Past Drug Use History: None Reported - Past Family History Father Family Medical History: Unable to Obtain Additional Family Medical History / Comment(s): does'nt know Mother Family Medical History: COPD Additional Family Medical History / Comment(s): 2 aunts have ms, another aunt has copd and cancer, grandmother had breast cancer Medications and Allergies Home Medications Medication Instructions Recorded Confirmed Type ARIPiprazole [Abilify] 10 mg PO HS #30 tab 03/09/17 06/02/17 Rx Baclofen 10 mg PO BID #60 tab 03/09/17 06/02/17 Rx Divalproex [Depakote] 500 mg PO TID #90 tablet. 03/09/17 06/02/17 Rx Gabapentin [Neurontin] 100 mg PO TID #30 cap 03/09/17 06/02/17 Rx Folic Acid 1 mg PO DAILY 06/02/17 06/02/17 History Multivitamins, Thera [Multivitamin 1 tab PO DAILY 06/02/17 06/02/17 History (formulary)] SUMAtriptan SUCCINATE [Imitrex] 25 mg PO BID PRN 06/02/17 06/02/17 History Allergies Allergy/AdvReac Type Severity Reaction Status Date / Time No Known Allergies Allergy Verified 06/02/17 16:10 Physical Examination - Vital Signs Vital Signs: Vital Signs Temp Pulse Pulse Resp BP BP Pulse Ox 06/02/17 19:43 97 F L 75 16 124/71 96 06/02/17 19:16 98.2 F 69 18 116/78 98 06/02/17 18:49 98.2 F 69 18 116/78 98 06/02/17 17:26 93 18 149/82 98 06/02/17 15:45 97.9 F 103 H 18 97/55 98 Intake and Output 06/02/17 06/02/17 06/02/17 06:59 14:59 22:59 Other: Weight 50.802 kg Patient Weight 06/03/17 06:59 Weight 50.802 kg - Constitutional General appearance: average body habitus, cooperative - EENT EENT: PERRL, mucous membranes moist - Respiratory Respiratory: lungs clear, normal breath sounds - Cardiovascular Cardiovascular: regular rate, normal S1, normal S2 Extremities: no peripheral edema bilaterally - Gastrointestinal Gastrointestinal: normoactive bowel sounds - Integumentary Integumentary: normal - Neurologic Cranial nerve examination: PERRL, EOMI, VFF, V1/V2/V3 grossly intact, face symmetric, tongue midline, intact gag reflex, intact corneal reflex, normal palatal elevation Speech examination: intact Sensorimotor examination: intact Detailed motor examination: grossly full strength in all extremities Motor examination - right side: 3/5: screw machine tender, hip flexors, knee extensors, dorsiflexion, toe extension (EHL), plantarflexion, 4/5: biceps, triceps, wrist flexion, wrist extension Motor examination - left side: 4/5: biceps, triceps, wrist flexion, wrist extension, screw machine tender, hip flexors, knee extensors, dorsiflexion, toe extension (EHL) , plantarflexion Detailed sensory examination: intact Reflex and gait examination: intact Reflexes: 1+: ankle, bicep, knee, tricep - Musculoskeletal Musculoskeletal: no pain - Psychiatric Psychiatric: mood/affect appropriate, depressed, cooperative Results - Laboratory Findings CBC and BMP: 06/02/17 16:46 06/02/17 16:46 Abnormal Lab Findings: Abnormal Labs 06/02/17 06/02/17 16:46 16:46 Carbon Dioxide 18 L BUN 21 H Urine Appearance Cloudy H Urine Protein Trace H Urine Ketones Trace H Ur Squamous Epith Cells 8 H Urine Bacteria Rare H Urine Mucus Rare H Assessment and Plan (1) Multiple sclerosis exacerbation Status: Acute Code(s): G35 - MULTIPLE SCLEROSIS (2) Muscle spasticity Status: Acute Code(s): M62.838 - OTHER MUSCLE SPASM (3) Medical non-compliance Status: Acute Code(s): Z91.19 - PATIENT'S NONCOMPLIANCE W OTH MEDICAL TREATMENT AND REGIMEN (4) History of seizures Status: Chronic Code(s): Z87.898 - PERSONAL HISTORY OF OTHER SPECIFIED CONDITIONS Plan: This patient is a 31-year-old female admitted with history of multiple sclerosis and recent symptoms of right-sided weakness. Patient has been noncompliant in following up with her neurologist for treatment of her underlying history of MS. She was recently admitted to Hospital on 03/07/2017 for similar episode of acute MS exacerbation. Today she is admitted with right- sided weakness and spasticity. We will start her on IV Solu-Medrol 1 g IV piggyback daily for 3 days. She will require physical therapy and occupational therapy evaluation. She is recommended to follow-up with a neurologist for primary treatment of her MS with one of the newer interferon therapies. Patient also has a history of bipolar disorder and severe depression. They recommended a psychiatry consultation for further assessment. Patient was advised that she needs to follow-up with neurology when she is discharged for ongoing maintenance of care. Her MS condition clearly needs aggressive treatment given her young age. We've explained to the patient that she should seek out follow-up once she is discharged from hospital. We will continue close neurological follow-up of this patient during this admission. Time with Patient: Greater than 30
[2017-06-03 07:39] LABS: Glucose,Whole Blood 172 mg/dL (75-99)
[2017-06-03] MEDS: SODIUM CHLORIDE 0.9% 1,000 ML IV SCH ×3 (08:50→21:04)
[2017-06-03] MEDS: BACLOFEN 10 MG TAB PO SCH ×3 (08:52→21:00)
[2017-06-03] MEDS: FAMOTIDINE 20 MG TAB PO SCH ×2 (08:52→21:00)
[2017-06-03] MEDS: GABAPENTIN 100 MG CAP PO SCH ×3 (08:52→21:00)
[2017-06-03] MEDS: DIVALPROEX 500 MG TABLET.DR PO SCH ×3 (08:52→21:00)
[2017-06-03 09:01] LABS: Basophils % (A) 0 %; CH 28.7; CHCM 30.4; Eosinophils % (A) 0 %; HCT 39.5 % (34.0-46.0); HDW 2.24; Hypochromasia Moderate; Luc # (Auto) 0.03; Luc % (Auto) 0; Lymphocytes # (A) 0.6 k/uL (1.0-4.8); Lymphocytes % (A) 7 %; MCH 28.6 pg (25.0-35.0); MCHC 30.3 g/dL (31.0-37.0); MCV 94.5 fL (80.0-100.0); Mean Platelet Volume 6.9; Monocytes # (A) 0.1 k/uL (0-1.0); Monocytes % (A) 1 %; Neutrophils # (A) 8.2 k/uL (1.3-7.7); Neutrophils % (A) 92 %; RBC 4.18 m/uL (3.80-5.40); RDW 12.5 % (11.5-15.5); WBC 8.9 k/uL (3.8-10.6); WBC (Perox) 9.33
[2017-06-03] MEDS: INSULIN LISPRO (humaLOG) 300 UNIT/3 ML VIAL SQ SCH ×4 (09:21→22:13)
[2017-06-03 09:26] LABS: Anion Gap 11 mmol/L; Blood Urea Nitrogen 16 mg/dL (7-17); Calcium 9.1 mg/dL (8.4-10.2); Carbon Dioxide 19 mmol/L (22-30); Chloride 107 mmol/L (98-107); Glucose 178 mg/dL (74-99); Non-African American GFR(MDRD) >60 (>60 ml/min/1.73 sqM); Potassium 4.4 mmol/L (3.5-5.1); Sodium 137 mmol/L (137-145)
[2017-06-03 12:04] LABS: Glucose,Whole Blood 125 mg/dL (75-99)
[2017-06-03] MEDS: HYDROmorphone 0.5 MG/0.5 ML SYRINGE IVP PRN ×3 (12:43→23:25)
[2017-06-03] MEDS: ONDANSETRON 4 MG/2 ML VIAL IVP PRN ×2 (12:44→23:25)
[2017-06-03] MEDS: FOLIC ACID 1 MG TAB PO SCH (13:29)
--- NOTE | 2017-06-03 14:40 | P.CN ---
Psychiatric Consult - . Consult date: 06/03/17 Consult:: 06/03/17 14:24 Identification and Reason for Consult: Patient is a 31-year-old female who is admitted for relapse of her MS symptoms and a consult was ordered for evaluation of severe depression. Patient's chart was reviewed, patient was seen and interviewed in her room no family members were present. History of Present Illness: Patient states that she was diagnosed with MS several years ago and now has been diagnosed with a remitting/relapsing type of MS. She reports numbness in her right greater than left side with spasms, migraine headaches neuropathy as well as visual problems. She states that she was recently here in February and had a follow-up appointment with the neurologist in April but missed the appointment and so has not been on any medications since her discharge in February. Patient states that she had been on Abilify which was started in February when she was here but has been off it for the last month and again on a prior to that for 6 years, being seen at [facility]. She states that she has not been seen there in over a year. She reports having been on Xanax, Effexor, Paxil, Celexa and Lexapro in the past. She reports a diagnosis of bipolar disorder, and is able to give a history of manic episodes in the past with increased energy, increased speech, feeling like a super woman, decreased need for sleep and spending money inappropriately. She also states that she has had depressive episodes in the past where she feels tired, no energy, banuelos and inpatient but denies any prior suicide attempts. Patient states that she also has a history of PTSD due to childhood traumas but states she is no longer having nightmares but does have flashbacks to these prior traumatic experiences. Patient states she was started on Abilify at her last admission in February and did well on it but ran out after a month. Past Psychiatric History: Patient denies any prior inpatient treatment and states that she was seen at [facility] in the past for 6 years and most recently was treated with Abilify 10 mg after her discharge here in February. Patient is also been on Effexor which she states she didn't like as well as Paxil, Celexa, and Lexapro in the past. Past Medical/Surgical History: Patient states she has a history of MS, scoliosis , she had a seizure disorder in the past but has not had seizures for a year Miss status post appendectomy, has had 4 C-sections in the past and states that she had corrective eye surgery done as a child but then walked into a lit cigarette which is caused continued visual problems in her left eye. Home Medications Medication Instructions Recorded Confirmed Folic Acid 1 mg PO DAILY 06/02/17 06/02/17 Multivitamins, Thera [Multivitamin 1 tab PO DAILY 06/02/17 06/02/17 (formulary)] SUMAtriptan SUCCINATE [Imitrex] 25 mg PO BID PRN 06/02/17 06/02/17 Previous Rx's Medication Instructions Recorded ARIPiprazole [Abilify] 10 mg PO HS #30 tab 03/09/17 Baclofen 10 mg PO BID #60 tab 03/09/17 Divalproex [Depakote] 500 mg PO TID #90 tablet. 03/09/17 Gabapentin [Neurontin] 100 mg PO TID #30 cap 03/09/17 Family History: Patient states in her mother's family there is a history of alcohol use and she has a maternal aunt who has been diagnosed with bipolar disorder. She states knowing is completed suicide in the family.] Social History: Patient was born and raised in [place] and she states that she never knew her father as he left when she was a baby. Her mother at that time she states she viewed her stepfather as her father. They when she was 13 years of age and she moved out of the house at that time. She' s has no siblings. Patient did graduate from home schooling and attended college for one year. 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 Patient has not recently been working. Patient has been one time is currently they've been together for 2 years. She has 4 children ages 14 and 12 from 1 partner and ages 9 and 6 from another partner all 4 children live with the patient. Patient states she applied for Social Security disability but was denied and is appealing that decision. She lives in a house that is owned by her mother's boyfriend. She states that her mother helps her financially. Substance Use History: Patient states that she is used alcohol only occasionally in the past and used marijuana when she was younger. She denies any current or prior drug use history. She states that she has never used tobacco products. Legal History: Patient was discharged at the age of 15 with possession of marijuana and also was charged with child neglect 5 years ago and she left one of her children in the car. Mental Status:Appearance/Attitude: Patient is appropriately groomed, sitting up in her hospital bed, in no acute distress and is cooperative. Behavior: Patient does not display any psychomotor agitation or retardation. Speech/Language: Patient is spontaneous, speaks in a soft voice of normal rhythm and she is coherent. Thought Process: Patient is goal-directed, is no evidence of circumstantial or tangential thought and no loose associations or flight of ideas. Thought Content: Patient denied any auditory or visual hallucinations no delusions or paranoid ideation were elicited. Patient states that she has been feeling banuelos and impatient. States she has been feeling depressed and anxious. Suicidal/Homicidal Ideation: Patient denies any current suicidal or homicidal ideation Sensorium/Cognition: Patient is alert and oriented to person, place, time and her memory is grossly intact. Mood/Affect: Patient's mood is depressed and her affect is appropriate. Insight/Judgement: Patient's insight and judgment are fair. Assessment: Patient presents after having run out of Abilify after last appointment as she did not follow up for aftercare. Patient has been treated with Abilify in the past for her bipolar disorder with good results and she has been restarted on Abilify 10 mg at bedtime. Patient is being seen for multiple sclerosis and states that she did not follow-up after she was discharged in February for an appointment that she had for her neurologist in April. Patient presents now with complaints of depression, no evidence of suicidal ideation and no evidence of a psychotic process. Laboratory Last Values WBC 8.9 k/uL (3.8-10.6) 06/03/17 08:36 RBC 4.18 m/uL (3.80-5.40) 06/03/17 08:36 Hgb 12.0 gm/dL (11.4-16.0) 06/03/17 08:36 Hct 39.5 % (34.0-46.0) 06/03/17 08:36 MCV 94.5 fL (80.0-100.0) 06/03/17 08:36 MCH 28.6 pg (25.0-35.0) 06/03/17 08:36 MCHC 30.3 g/dL (31.0-37.0) L 06/03/17 08:36 RDW 12.5 % (11.5-15.5) 06/03/17 08:36 Plt Count 265 k/uL (150-450) 06/03/17 08:36 Neutrophils % 92 % 06/03/17 08:36 Lymphocytes % 7 % 06/03/17 08:36 Monocytes % 1 % 06/03/17 08:36 Eosinophils % 0 % 06/03/17 08:36 Basophils % 0 % 06/03/17 08:36 Neutrophils # 8.2 k/uL (1.3-7.7) H 06/03/17 08:36 Lymphocytes # 0.6 k/uL (1.0-4.8) L 06/03/17 08:36 Monocytes # 0.1 k/uL (0-1.0) 06/03/17 08:36 Eosinophils # 0.0 k/uL (0-0.7) 06/03/17 08:36 Basophils # 0.0 k/uL (0-0.2) 06/03/17 08:36 Hypochromasia Moderate 06/03/17 08:36 Sodium 137 mmol/L (137-145) 06/03/17 08:36 Potassium 4.4 mmol/L (3.5-5.1) 06/03/17 08:36 Chloride 107 mmol/L (98-107) 06/03/17 08:36 Carbon Dioxide 19 mmol/L (22-30) L 06/03/17 08:36 Anion Gap 11 mmol/L 06/03/17 08:36 BUN 16 mg/dL (7-17) 06/03/17 08:36 Creatinine 0.67 mg/dL (0.52-1.04) 06/03/17 08:36 Est GFR (MDRD) Af Amer >60 (>60 ml/min/1.73 sqM) 06/03/17 08:36 Est GFR (MDRD) Non-Af >60 (>60 ml/min/1.73 sqM) 06/03/17 08:36 Glucose 178 mg/dL (74-99) H 06/03/17 08:36 POC Glucose (mg/dL) 125 mg/dL (75-99) H 06/03/17 12:02 POC Glu Transfer Station Attendant ID Rose Menjivar 06/03/17 12:02 Calcium 9.1 mg/dL (8.4-10.2) 06/03/17 08:36 Total Bilirubin 0.7 mg/dL (0.2-1.3) 06/02/17 16:46 AST 23 U/L (14-36) 06/02/17 16:46 ALT 25 U/L (9-52) 06/02/17 16:46 Alkaline Phosphatase 110 U/L (38-126) 06/02/17 16:46 Total Protein 7.7 g/dL (6.3-8.2) 06/02/17 16:46 Albumin 4.8 g/dL (3.5-5.0) 06/02/17 16:46 Lipase 51 U/L (23-300) 06/02/17 16:46 Urine Color Yellow 06/02/17 16:46 Urine Appearance Cloudy (Clear) H 06/02/17 16:46 Urine pH 8.0 (5.0-8.0) 06/02/17 16:46 Ur Specific Blain 1.020 (1.001-1.035) 06/02/17 16:46 Urine Protein Trace (Negative) H 06/02/17 16:46 Urine Glucose (UA) Negative (Negative) 06/02/17 16:46 Urine Ketones Trace (Negative) H 06/02/17 16:46 Urine Blood Negative (Negative) 06/02/17 16:46 Urine Nitrite Negative (Negative) 06/02/17 16:46 Urine Bilirubin Negative (Negative) 06/02/17 16:46 Urine Urobilinogen <2.0 mg/dL (<2.0) 06/02/17 16:46 Ur Leukocyte Esterase Negative (Negative) 06/02/17 16:46 Urine RBC <1 /hpf (0-5) 06/02/17 16:46 Urine WBC 4 /hpf (0-5) 06/02/17 16:46 Ur Squamous Epith Cells 8 /hpf (0-4) H 06/02/17 16:46 Urine Bacteria Rare /hpf (None) H 06/02/17 16:46 Urine Mucus Rare /hpf (None) H 06/02/17 16:46 Urine HCG, Qual Not Detected (Not Detectd) 06/02/17 16:46 Diagnosis: Bipolar disorder type I, current episode depressed Plan: Patient was restarted on Abilify 10 mg at bedtime which she states is worked well for her, she has no current psychotic symptoms and no suicidal or homicidal ideation at this time and does not require inpatient psychiatric treatment. Patient was encouraged to follow-up with [facility] on her discharge so that she can be maintained on her medication, a referral to social work to make this contact with [facility] was made. Patient complained of some anxiety but the patient is also receiving Neurontin which also help with her complaints of anxiety. I will follow the patient to make sure that she is doing well on her Abilify. 06/03/17 14:39
[2017-06-03] MEDS ORDERED: TEMAZEPAM 15 MG CAP PO PRN (15:56)
[2017-06-03 17:54] LABS: Glucose,Whole Blood 171 mg/dL (75-99)
--- NOTE | 2017-06-03 18:13 | HP ---
HISTORY AND PHYSICAL DATE OF SERVICE: 06/03/2017. CHIEF COMPLAINT: Multiple chief complaints including numbness, weakness, shortness of breath, dizziness and cough. HISTORY OF PRESENT ILLNESS: This 31-year-old woman with past seizure disorder, history of multiple sclerosis , history of anxiety, bipolar depression being followed by Dr. Anne in the outpatient setting was previously admitted to [facility] on multiple occasions. Currently the patient is complaining of multiple symptomatology including difficulty in breathing, headache, blurred vision, numbness, weakness. The patient was taken to [facility] and admitted for further evaluation and multiple sclerosis acute exacerbation has been suspected. MRI done on 02/15/2017 showed minimal scattered burden on the T2 weighted white matter changes, a few punctate lesions were also noted. and suspect at this time. There is no history of fever, rigors. No history of headache, loss of consciousness or seizures. PAST MEDICAL HISTORY: 1. History of multiple sclerosis. 2. History of seizure disorder. 3. History of chronic back pain. 4. Anxiety and depression. MEDICATIONS: Medications prior to admission include home medications are: 1. Imitrex 25 mg b.i.d. p.r.n. 2. Multivitamins 1 p.o. daily. 3. Neurontin 100 mg b.i.d. 4. Folic acid 1 mg daily. 5. Depakote 500 mg b.i.d. 6. Baclofen 10 mg p.o. b.i.d. 7. Abilify 10 mg q.h.s. ALLERGIES: None. FAMILY HISTORY: History of COPD in the family. SOCIAL HISTORY: No history of smoking. Occasional alcohol intake. REVIEW OF SYSTEMS: ENT: No diminished hearing or vision. CARDIOVASCULAR: No angina or palpitations. RESPIRATORY: No cough, hemoptysis. GI: No nausea. : No dysuria. NERVOUS SYSTEM: As mentioned earlier. ALLERGY/IMMUNOLOGY: No asthma or hayfever. MUSCULOSKELETAL: As mentioned earlier. HEMATOLOGY/ONCOLOGY: No history of anemia. ENDOCRINE: No history of diabetes or hypothyroidism. CONSTITUTIONAL: As mentioned earlier. DERMATOLOGY: Negative. RHEUMATOLOGY: Negative. PSYCHIATRY: As mentioned earlier. PHYSICAL EXAMINATION: Alert oriented x3. Pulse is 89, blood pressure 130/75, respirations 16, temperature 97.1, pulse ox 98% on room air. HEENT: Conjunctivae normal. Oral mucosa moist. NECK: No jugular venous distention. No carotid bruit. No lymph node enlargement. CARDIOVASCULAR: S1, S2. No S3, no S4 RESPIRATORY: Breath sounds noted in the bases. No rhonchi. No crackles. ABDOMEN: Soft, nontender. No mass palpable. LEGS: No edema, no cyanosis. NERVOUS SYSTEM: Diffusely weak and some minimal wasting also noted. Some tremulous movement and abnormal movement also noted. JOINTS: No active arthropathy. LABS: CBC within normal limits. Glucose 178. UA noted. The chest x-ray normal. ASSESSMENT: 1. Multiple sclerosis acute exacerbation with possibly baseline remitting/ relapsing type. 2. Seizures. 3. Severe anxiety, depression, bipolar. 4. Chronic back pain and degenerative joint disease. RECOMMENDATIONS AND DISCUSSION: I recommend to continue the current medications, continue symptomatic treatment. IV high-dose steroids. Accu-Cheks a.c. and at bedtime Monitor closely. PT, OT evaluation. Increase ambulation. Psychiatric evaluation. The patient has been on Abilify before. Patient also has history of noncompliance and was not following up with a neurologist in the outpatient setting. I recommended the patient to be compliant to ensure continued monitoring of disease. Otherwise we will continue to monitor. Guarded prognosis because of multiple complex medical issues. Further recommendations to follow. MMODL / IJN: [id number] / ANTHONY
[2017-06-03 19:56] LABS: Glucose,Whole Blood 149 mg/dL (75-99)
[2017-06-03 20:18] LABS: Hemoglobin A1C 4.8 % (4.2-6.1)
[2017-06-03] MEDS: HEPARIN SODIUM,PORCINE 5,000 UNIT/ML 1 ML VIAL SQ SCH (21:00)
[2017-06-03] MEDS: ARIPiprazole 10 MG TAB PO SCH (21:00)
[2017-06-04] MEDS: methylPREDNISolone SOD SUCCI 250 MG in SODIUM CHLORIDE 0.9% 100 ML IVPB SCH ×4 (05:16→23:27)
[2017-06-04] MEDS: SODIUM CHLORIDE 0.9% 1,000 ML IV SCH ×4 (05:16→17:52)
[2017-06-04 07:02] LABS: Glucose,Whole Blood 155 mg/dL (75-99)
[2017-06-04] MEDS: HYDROmorphone 0.5 MG/0.5 ML SYRINGE IVP PRN ×4 (07:19→23:30)
[2017-06-04] MEDS: ONDANSETRON 4 MG/2 ML VIAL IVP PRN ×2 (07:37→17:05)
[2017-06-04] MEDS: INSULIN LISPRO (humaLOG) 300 UNIT/3 ML VIAL SQ SCH ×4 (08:23→20:25)
[2017-06-04] MEDS: DIVALPROEX 500 MG TABLET.DR PO SCH ×3 (09:31→21:20)
[2017-06-04] MEDS: BACLOFEN 10 MG TAB PO SCH ×3 (09:31→21:20)
[2017-06-04] MEDS: FAMOTIDINE 20 MG TAB PO SCH ×2 (09:31→20:27)
[2017-06-04] MEDS: GABAPENTIN 100 MG CAP PO SCH ×3 (09:31→21:20)
[2017-06-04] MEDS: HEPARIN SODIUM,PORCINE 5,000 UNIT/ML 1 ML VIAL SQ SCH ×2 (09:32→20:27)
[2017-06-04 11:19] LABS: Glucose,Whole Blood 154 mg/dL (75-99)
[2017-06-04] MEDS ORDERED: LORazepam 1 MG TAB PO PRN (11:46)
[2017-06-04 11:58] LABS: Basophils % (A) 0 %; CH 28.5; CHCM 29.8; Eosinophils % (A) 0 %; HCT 40.1 % (34.0-46.0); HDW 2.21; HGB 12.1 gm/dL (11.4-16.0); Hypochromasia Marked; Luc # (Auto) 0.07; Luc % (Auto) 1; Lymphocytes # (A) 0.6 k/uL (1.0-4.8); Lymphocytes % (A) 5 %; MCH 28.9 pg (25.0-35.0); MCHC 30.1 g/dL (31.0-37.0); MCV 95.9 fL (80.0-100.0); Mean Platelet Volume 7.3; Monocytes # (A) 0.3 k/uL (0-1.0); Monocytes % (A) 3 %; Neutrophils # (A) 11.4 k/uL (1.3-7.7); Neutrophils % (A) 92 %; RBC 4.18 m/uL (3.80-5.40); RDW 12.8 % (11.5-15.5); WBC 12.4 k/uL (3.8-10.6); WBC (Perox) 13.18
[2017-06-04 12:11] LABS: Anion Gap 9 mmol/L; Blood Urea Nitrogen 13 mg/dL (7-17); Calcium 9.1 mg/dL (8.4-10.2); Carbon Dioxide 27 mmol/L (22-30); Chloride 104 mmol/L (98-107); Glucose 113 mg/dL (74-99); Non-African American GFR(MDRD) >60 (>60 ml/min/1.73 sqM); Sodium 140 mmol/L (137-145)
[2017-06-04] MEDS: FOLIC ACID 1 MG TAB PO SCH (13:15)
[2017-06-04] MEDS: MULTIVITAMINS, THERA 1 EACH TAB PO SCH (13:15)
--- NOTE | 2017-06-04 14:05 | P.PN ---
Progress Note - Text Patient is a 31-year-old female who was seen in follow-up to a consultation yesterday, patient has been continued on Abilify 10 mg and reports to me that she is doing well today. Patient did not report any complaints of depression or feeling suicidal. Patient states that she saw the social media developer earlier today and has the information to follow-up with [facility] after her discharge. Patient states she is not having any side effects from the medication. Patient was appropriately dressed, sitting up in her bed in no acute distress and was cooperative. Patient did not display any psychomotor agitation or retardation. Patient was spontaneous in her speech was of normal volume and rhythm and she was coherent. Patient was goal-directed and denied any auditory or visual hallucinations no paranoid or delusional ideation was elicited. Patient reported that she was not feeling suicidal and denied any current suicidal or homicidal ideation. Patient reported that her mood was much more stable and she was not feeling depressed and her affect was appropriate. Patient can be discharged home on Abilify 10 mg in the morning and will follow- up with [facility] after her discharge. I will sign off the case at this time.
--- NOTE | 2017-06-04 16:00 | PN ---
PROGRESS NOTE DATE OF SERVICE: 06/04/2017 This 31-year-old woman who was admitted with multiple chief complaints including multiple sclerosis acute exacerbation started on high-dose IV steroids. Patient also had seizures and severe anxiety, depression and bipolar also. The patient is started on Abilify at this time. The patient has significant gait dysfunction at this time. Needed walker for hop walking. PAST MEDICAL HISTORY: Reviewed. REVIEW OF SYSTEMS: CARDIOVASCULAR: No angina. RESPIRATORY: As mentioned. GI: No nausea. : No dysuria. NERVOUS SYSTEM: As mentioned earlier. CURRENT MEDICATIONS: Reviewed and include: 1. Abilify 10 mg q.h.s. 2. Lioresal 10 mg t.i.d. 3. Depakote 500 mg t.i.d. 4. Pepcid 40 mg b.i.d. 5. Folic acid 1 mg daily. 6. Neurontin 100 mg p.o. t.i.d. 7. Heparin subcu b.i.d. 8. Dilaudid 0.5 q.4h p.r.n. 9. Toradol 15 mg q.6h p.r.n. 10.Ativan 1 mg q.6 p.r.n. 11.Solu-Medrol 250 IV q.6h. 12.Multivitamins. 13.Zofran. 14.Imitrex. 15.Restoril. PHYSICAL EXAM: Patient is alert, oriented x3. Pulse 77, blood pressure 130/80, respiratory 14, temperature 97.8, pulse ox 97% room air. HEENT: Conjunctivae normal. Oral mucosa moist. NECK: No jugular venous distention. No carotid bruit. No lymph node enlargement. CARDIOVASCULAR: S1, S2 RESPIRATORY: Breath sounds diminished in the bases. A few rhonchi. No crackles. ABDOMEN: Soft, nontender. No mass palpable. LEGS: No edema. No swelling. NERVOUS SYSTEM: Diffuse weakness and wasting. Gait dysfunction and instability also present. SKIN: No ulcer, rash or bleeding. LYMPHATICS: No lymphadenopathy in the neck, axillae or axilla. LABS: WBC 12.2, hemoglobin is 12.1. Sodium 140, potassium 4. UA noted. ASSESSMENT: 1. Multiple sclerosis acute exacerbation with possible baseline remitting relapsing type. 2. Seizure disorder. 3. Severe anxiety depression bipolar. 4. Chronic back pain and degenerative joint disease. 5. Increased random blood sugars possibly secondary to steroids. 6. Increased WBC possibly secondary to steroids. 7. Vitamin D deficiency. RECOMMENDATIONS AND DISCUSSION: We will recommend to continue current medications. Continue symptomatic treatment. Otherwise I would continue with IV steroids monitor blood sugars closely. Supplement vitamin D. PT, OT evaluation. I would also recommend continue neurology evaluation and public health social worker also. Recommend vit d 3_1000 units daily and continue to monitor. Otherwise the DVT prophylaxis. Continue the rest of the medications. PT, OT evaluation as mentioned earlier. Cut down the IV fluids rate. Prognosis guarded. Further recommendations to follow. MMODL / IJN: [id number] / MTDD
[2017-06-04 17:18] LABS: Glucose,Whole Blood 142 mg/dL (75-99)
[2017-06-04 20:25] LABS: Glucose,Whole Blood 126 mg/dL (75-99)
[2017-06-04] MEDS: ARIPiprazole 10 MG TAB PO SCH (20:27)
[2017-06-04] MEDS: LORazepam 0.5 MG TAB PO PRN (21:19)
[2017-06-05] MEDS: methylPREDNISolone SOD SUCCI 250 MG in SODIUM CHLORIDE 0.9% 100 ML IVPB SCH ×3 (05:38→18:52)
[2017-06-05 07:06] LABS: Glucose,Whole Blood 126 mg/dL (75-99)
[2017-06-05] MEDS: HYDROmorphone 0.5 MG/0.5 ML SYRINGE IVP PRN ×2 (07:20→21:11)
[2017-06-05] MEDS: LORazepam 0.5 MG TAB PO PRN (07:51)
[2017-06-05] MEDS: INSULIN LISPRO (humaLOG) 300 UNIT/3 ML VIAL SQ SCH ×4 (07:52→21:17)
[2017-06-05 08:09] LABS: Basophils % (A) 0 %; CH 29.2; CHCM 31.4; Eosinophils % (A) 0 %; HCT 38.6 % (34.0-46.0); HGB 11.9 gm/dL (11.4-16.0); Luc # (Auto) 0.09; Luc % (Auto) 1; Lymphocytes # (A) 0.7 k/uL (1.0-4.8); Lymphocytes % (A) 7 %; MCH 28.7 pg (25.0-35.0); MCHC 30.7 g/dL (31.0-37.0); MCV 93.4 fL (80.0-100.0); Mean Platelet Volume 7.8; Monocytes # (A) 0.5 k/uL (0-1.0); Monocytes % (A) 5 %; Neutrophils # (A) 9.5 k/uL (1.3-7.7); Neutrophils % (A) 88 %; RBC 4.14 m/uL (3.80-5.40); RDW 13.4 % (11.5-15.5); WBC 10.8 k/uL (3.8-10.6); WBC (Perox) 11.13
[2017-06-05 08:15] LABS: Anion Gap 8 mmol/L; Blood Urea Nitrogen 18 mg/dL (7-17); Carbon Dioxide 27 mmol/L (22-30); Chloride 105 mmol/L (98-107); Glucose 129 mg/dL (74-99); Non-African American GFR(MDRD) >60 (>60 ml/min/1.73 sqM); Potassium 4.5 mmol/L (3.5-5.1); Sodium 140 mmol/L (137-145)
[2017-06-05] MEDS: BACLOFEN 10 MG TAB PO SCH ×3 (10:14→21:18)
[2017-06-05] MEDS: DIVALPROEX 500 MG TABLET.DR PO SCH ×3 (10:15→21:18)
[2017-06-05] MEDS: FAMOTIDINE 20 MG TAB PO SCH ×2 (10:15→21:17)
[2017-06-05] MEDS: HEPARIN SODIUM,PORCINE 5,000 UNIT/ML 1 ML VIAL SQ SCH ×2 (10:16→21:17)
[2017-06-05] MEDS: GABAPENTIN 100 MG CAP PO SCH ×3 (10:16→21:18)
[2017-06-05 11:30] LABS: Glucose,Whole Blood 177 mg/dL (75-99)
[2017-06-05] MEDS: clonazePAM 0.5 MG TAB PO SCH ×3 (12:08→21:56)
[2017-06-05] MEDS: SODIUM CHLORIDE 0.9% 1,000 ML IV SCH (12:08)
[2017-06-05] MEDS: MULTIVITAMINS, THERA 1 EACH TAB PO SCH (13:04)
[2017-06-05] MEDS: CHOLECALCIFEROL 1,000 UNIT TAB PO SCH (13:04)
[2017-06-05] MEDS: FOLIC ACID 1 MG TAB PO SCH (13:04)
[2017-06-05 16:36] LABS: Glucose,Whole Blood 156 mg/dL (75-99)
--- NOTE | 2017-06-05 17:36 | PN ---
PROGRESS NOTE DATE OF SERVICE: 06/05/2017 INTERVAL HISTORY: This 31-year-old woman who was admitted with multiple chief complaints, also multiple sclerosis acute exacerbation. The patient was closely monitored. Patient started on IV steroids. No chest pain. No palpitations. No fever. EXAM: Alert and oriented x3. Pulse 52, blood pressure 150/82, respirations 16, temperature 97.6, pulse ox 98% on room air. HEENT: Conjunctivae normal. NECK: No jugular venous distention. CARDIOVASCULAR: S1, S2. RESPIRATORY: Breath sounds diminished in the bases. No rhonchi. No crackles. ABDOMEN: Soft, nontender. LEGS: No edema. NERVOUS SYSTEM: Diffusely weak. LABS: Labs at this time: WBC 10.2 and glucose 129. ASSESSMENT: 1. Multiple sclerosis acute exacerbation with possible baseline remitting and relapsing type. 2. Seizure disorder. 3. Severe anxiety, depression, bipolar. 4. Chronic back pain and degenerative joint disease. 5. Increased random blood sugar possibly secondary steroids. 6. Increased WBC possible secondary to steroids. 7. Vitamin D deficiency. RECOMMENDATIONS AND DISCUSSION: I recommend to continue current medications and symptomatic treatment. Otherwise I would recommended to continue with IV steroids. DVT prophylaxis. Further recommendations to follow. MMODL / IJN: [id number] /
--- NOTE | 2017-06-05 19:05 | P.PN ---
Subjective This patient is a 31-year-old right-handed white female who was admitted to hospital yesterday for acute MS exacerbation. Patient has been having multiple complaints of paresthesias and numbness as well as dizziness affecting mostly her right side. She has had multiple admissions for MS treatment. She has been noncompliant for treatment of her MS over the years. She is admitted to the hospital for acute MS exacerbation is currently on IV Solu-Medrol which we will continue for the next 2 days. She has noted some slight improvement in her condition since admission to the hospital. Patient states her right-sided numbness still is present but seems to wax and wane. She was able to work with physical therapy earlier today. She was seen by psychiatry who have restarted her on Abilify for treatment of underlying depression and bipolar disorder. Patient complains of increasing anxiety levels and she may benefit from mild sedation as needed. Patient otherwise seems to be doing well today. She is completing 2 days of IV Solu-Medrol today. We will need her to complete a full 3 day course. Her overall prognosis at this time remains guarded. Objective - Vital Signs Vital signs: Vital Signs Temp 97.0 F L 06/03/17 15:00 Pulse 80 06/03/17 16:00 Resp 16 06/03/17 16:00 BP 123/69 06/03/17 15:00 Pulse Ox 98 06/03/17 15:00 Intake & Output 06/03/17 06/03/17 06/04/17 06:59 18:59 06:59 Intake Total 820 1420 Balance 820 1420 Weight 50.802 kg Intake: Intake, IV Titration 240 940 Amount Sodium Chloride 0.9% 1, 240 840 000 ml @ 120 mls/hr IV . Q8H20M JAMES Rx#:[id number] methylPREDNISolone SOD 100 SUCCI 250 mg In Sodium Chloride 0.9% 100 ml @ 100 mls/hr IVPB Q6HR JAMES Rx#:[id number] Oral 580 480 Other: Voiding Method Toilet Toilet # Voids 2 3 # Bowel Movements 1 - Exam Physical examination: PHYSICAL EXAMINATION: Patient is resting comfortably in bed. VITAL SIGNS: Blood pressure is [123/69]. Heart rate is [80]. Respiration is [16] . Temperature is [97.0]. HEENT: Head is atraumatic, neck is supple, there were no carotid bruits. CHEST: Lungs are clear to auscultation and percussion. CARDIAC: S1, S2 normal rate and rhythm. There is no murmur. ABDOMEN: Soft and nontender. Bowel sounds are present. EXTREMITIES: There is no pedal edema. Peripheral pulses are present. Neurological examination: Respirations neurological examination is unchanged from yesterday. Patient continues to have some right-sided hemiparesis. - Labs CBC & Chem 7: 06/05/17 07:04 06/05/17 07:04 Labs: Abnormal Lab Results - Last 24 Hours (Table) 06/03/17 06/03/17 06/03/17 Range/Units 07:37 08:36 08:36 MCHC 30.3 L (31.0-37.0) g/dL Neutrophils # 8.2 H (1.3-7.7) k/uL Lymphocytes # 0.6 L (1.0-4.8) k/uL Carbon Dioxide 19 L (22-30) mmol/L Glucose 178 H (74-99) mg/dL POC Glucose (mg/dL) 172 H (75-99) mg/dL 06/03/17 06/03/17 06/03/17 Range/Units 12:02 17:53 19:54 MCHC (31.0-37.0) g/dL Neutrophils # (1.3-7.7) k/uL Lymphocytes # (1.0-4.8) k/uL Carbon Dioxide (22-30) mmol/L Glucose (74-99) mg/dL POC Glucose (mg/dL) 125 H 171 H 149 H (75-99) mg/dL Assessment and Plan (1) Multiple sclerosis exacerbation Status: Acute Code(s): G35 - MULTIPLE SCLEROSIS (2) Muscle spasticity Status: Acute Code(s): M62.838 - OTHER MUSCLE SPASM (3) Medical non-compliance Status: Acute Code(s): Z91.19 - PATIENT'S NONCOMPLIANCE W OTH MEDICAL TREATMENT AND REGIMEN (4) History of seizures Status: Chronic Code(s): Z87.898 - PERSONAL HISTORY OF OTHER SPECIFIED CONDITIONS Plan: This patient is a 31-year-old female admitted to hospital for acute MS exacerbation. She had run out of several of her MS medications about a year ago. She comes today for further evaluation due to right-sided weakness. Patient is completing day 2 of IV Solu-Medrol for treatment of MS exacerbation. We will have PTOT see the patient tomorrow. Overall prognosis at this time remains guarded. Patient will complete 3 days of IV Solu-Medrol and be able to be discharged home. She should schedule appointments in the neurology and gastroenterology clinics about 2 weeks after discharge. We will plan to complete 3 days of IV Solu-Medrol treatment for her MS. She is to continue with outpatient psychiatry follow-up as well. She was restarted on Abilify as per the recommendations from psychiatry. She is also requesting Ativan or Klonopin for anxiety. We will defer to psychiatry in terms of further treatment of her underlying anxiety disorder. Patient will require possible inpatient rehab placement. We will await further input from PTOT in regards to her progress. Her overall prognosis at this time remains guarded.
--- NOTE | 2017-06-05 19:09 | P.PN ---
Subjective This patient is a 31-year-old right-handed white female who was admitted to hospital yesterday for acute MS exacerbation. Patient has been having multiple complaints of paresthesias and numbness as well as dizziness affecting mostly her right side. She has had multiple admissions for MS treatment. She has been noncompliant for treatment of her MS over the years. She is admitted to the hospital for acute MS exacerbation is currently on IV Solu-Medrol which we will continue for the next 2 days. She has noted some slight improvement in her condition since admission to the hospital. Patient states her right-sided numbness still is present but seems to wax and wane. She was able to work with physical therapy earlier today. She was seen by psychiatry who have restarted her on Abilify for treatment of underlying depression and bipolar disorder. Patient complains of increasing anxiety levels and she may benefit from mild sedation as needed. We will defer to psychiatry and further treatment of her anxiety disorder. Some of the anxiety may be heightened by the use of the IV steroids which should be gradually tapered at the time of her discharge. We will await further input from PT/OT in regards to inpatient rehab for this patient. She is able to ambulate only with the use of a walker apparently yesterday. Patient otherwise seems to be doing well today. She is completing 3 days of IV Solu-Medrol today. We will need her to complete a full 3 day course. Her overall prognosis at this time remains guarded. Objective - Vital Signs Vital signs: Vital Signs Temp 97.8 F 06/04/17 07:00 Pulse 77 06/04/17 17:40 Resp 14 06/04/17 17:40 BP 134/83 06/04/17 07:00 Pulse Ox 97 06/04/17 07:00 Intake & Output 06/04/17 06/04/17 06/05/17 06:59 18:59 06:59 Intake Total 1860 440 Balance 1860 440 Intake: Intake, IV Titration 1860 200 Amount Sodium Chloride 0.9% 1, 960 000 ml @ 50 mls/hr IV . Q20H JAMES Rx#:[id number] methylPREDNISolone SOD 900 200 SUCCI 250 mg In Sodium Chloride 0.9% 100 ml @ 100 mls/hr IVPB Q6HR JAMES Rx#:[id number] Oral 240 Other: Voiding Method Toilet Toilet # Voids 4 3 - Exam Physical examination: PHYSICAL EXAMINATION: Patient is resting comfortably in bed. VITAL SIGNS: Blood pressure is [134/83]. Heart rate is [77]. Respiration is [14] . Temperature is [97.8]. HEENT: Head is atraumatic, neck is supple, there were no carotid bruits. CHEST: Lungs are clear to auscultation and percussion. CARDIAC: S1, S2 normal rate and rhythm. There is no murmur. ABDOMEN: Soft and nontender. Bowel sounds are present. EXTREMITIES: There is no pedal edema. Peripheral pulses are present. Neurological examination: Respirations neurological examination is unchanged from yesterday. Patient continues to have some right-sided hemiparesis. - Labs CBC & Chem 7: 06/05/17 07:04 06/05/17 07:04 Labs: Abnormal Lab Results - Last 24 Hours (Table) 06/03/17 06/04/17 06/04/17 Range/Units 08:36 07:00 11:12 WBC (3.8-10.6) k/uL MCHC (31.0-37.0) g/dL Neutrophils # (1.3-7.7) k/uL Lymphocytes # (1.0-4.8) k/uL Glucose (74-99) mg/dL POC Glucose (mg/dL) 155 H 154 H (75-99) mg/dL Vitamin D 25-Hydroxy 24.3 L (30.0-100.0) ng/mL 06/04/17 06/04/17 06/04/17 Range/Units 11:34 11:34 17:16 WBC 12.4 H (3.8-10.6) k/uL MCHC 30.1 L (31.0-37.0) g/dL Neutrophils # 11.4 H (1.3-7.7) k/uL Lymphocytes # 0.6 L (1.0-4.8) k/uL Glucose 113 H (74-99) mg/dL POC Glucose (mg/dL) 142 H (75-99) mg/dL Vitamin D 25-Hydroxy (30.0-100.0) ng/mL 06/04/17 Range/Units 20:23 WBC (3.8-10.6) k/uL MCHC (31.0-37.0) g/dL Neutrophils # (1.3-7.7) k/uL Lymphocytes # (1.0-4.8) k/uL Glucose (74-99) mg/dL POC Glucose (mg/dL) 126 H (75-99) mg/dL Vitamin D 25-Hydroxy (30.0-100.0) ng/mL Assessment and Plan (1) Multiple sclerosis exacerbation Status: Acute Code(s): G35 - MULTIPLE SCLEROSIS (2) Muscle spasticity Status: Acute Code(s): M62.838 - OTHER MUSCLE SPASM (3) Medical non-compliance Status: Acute Code(s): Z91.19 - PATIENT'S NONCOMPLIANCE W OT MEDICAL TREATMENT AND REGIMEN (4) History of seizures Status: Chronic Code(s): Z87.898 - PERSONAL HISTORY OF OTHER SPECIFIED CONDITIONS Plan: This patient is a 31-year-old female admitted to hospital for acute MS exacerbation. She had run out of several of her MS medications about a year ago. She comes today for further evaluation due to right-sided weakness. Patient is completing day 2 of IV Solu-Medrol for treatment of MS exacerbation. We will have PTOT see the patient tomorrow. Overall prognosis at this time remains guarded. Patient will complete 3 days of IV Solu-Medrol and be able to be discharged home. She should schedule appointments in the neurology and gastroenterology clinics about 2 weeks after discharge. We will plan to complete 3 days of IV Solu-Medrol treatment for her MS. She is to continue with outpatient psychiatry follow-up as well. She was restarted on Abilify as per the recommendations from psychiatry. She is also requesting Ativan or Klonopin for anxiety. We will defer to psychiatry in terms of further treatment of her underlying anxiety disorder. Patient will require possible inpatient rehab placement. We will await further input from PT/OT in regards to her progress. Patient will need to follow up in the outpatient clinics one she is discharged. She has been noncompliant in the past. We've encouraged her to follow up with her MS condition so as to prevent further progression of her underlying disorder. Her overall prognosis at this time remains guarded.
--- NOTE | 2017-06-05 19:12 | P.PN ---
Subjective This patient is a 31-year-old right-handed white female who was admitted to hospital yesterday for acute MS exacerbation. Patient has been having multiple complaints of paresthesias and numbness as well as dizziness affecting mostly her right side. She has had multiple admissions for MS treatment. She has been noncompliant for treatment of her MS over the years. She is admitted to the hospital for acute MS exacerbation is currently on IV Solu-Medrol which we will continue for the next 2 days. She has noted some slight improvement in her condition since admission to the hospital. Patient states her right-sided numbness still is present but seems to wax and wane. She was able to work with physical therapy earlier today. She was seen by psychiatry who have restarted her on Abilify for treatment of underlying depression and bipolar disorder. Patient complains of increasing anxiety levels and she may benefit from mild sedation as needed. We will defer to psychiatry and further treatment of her anxiety disorder. Some of the anxiety may be heightened by the use of the IV steroids which should be gradually tapered at the time of her discharge. We will await further input from PT/OT in regards to inpatient rehab for this patient. She is able to ambulate only with the use of a walker apparently yesterday. Patient otherwise seems to be doing well today. She is completing 3 days of IV Solu-Medrol today. We will need her to complete a full 3 day course. Patient may need inpatient rehab but we will discuss this with physical therapy tomorrow. She should be ready for discharge home tomorrow if she is completed her IV Solu-Medrol course. She is to follow-up with psychiatry in the outpatient setting. She was restarted on her Abilify. We have deferred to psychiatry in terms of further management of her underlying anxiety disorder. Her overall prognosis at this time remains guarded. Objective - Vital Signs Vital signs: Vital Signs Temp 98.8 F 06/05/17 15:00 Pulse 52 L 06/05/17 16:05 Resp 16 06/05/17 16:05 BP 154/73 06/05/17 15:00 Pulse Ox 98 06/05/17 15:00 Intake & Output 06/05/17 06/05/17 06/06/17 06:59 18:59 06:59 Intake Total 600 600 Balance 600 600 Weight 50.802 kg Intake: Intake, IV Titration 600 350 Amount Sodium Chloride 0.9% 1, 600 250 000 ml @ 50 mls/hr IV . Q20H JAMES Rx#:[id number] methylPREDNISolone SOD 100 SUCCI 250 mg In Sodium Chloride 0.9% 100 ml @ 100 mls/hr IVPB Q6HR JAMES Rx#:[id number] Oral 250 Other: Voiding Method Toilet Toilet # Voids 3 # Bowel Movements 1 - Exam Physical examination: PHYSICAL EXAMINATION: Patient is resting comfortably in bed. VITAL SIGNS: Blood pressure is [154/73]. Heart rate is [52]. Respiration is [16] . Temperature is [98.8]. HEENT: Head is atraumatic, neck is supple, there were no carotid bruits. CHEST: Lungs are clear to auscultation and percussion. CARDIAC: S1, S2 normal rate and rhythm. There is no murmur. ABDOMEN: Soft and nontender. Bowel sounds are present. EXTREMITIES: There is no pedal edema. Peripheral pulses are present. Neurological examination: Respirations neurological examination is unchanged from yesterday. Patient continues to have some right-sided hemiparesis. - Labs CBC & Chem 7: 06/05/17 07:04 06/05/17 07:04 Labs: Abnormal Lab Results - Last 24 Hours (Table) 06/04/17 06/05/17 06/05/17 Range/Units 20:23 06:56 07:04 WBC 10.8 H (3.8-10.6) k/uL MCHC 30.7 L (31.0-37.0) g/dL Neutrophils # 9.5 H (1.3-7.7) k/uL Lymphocytes # 0.7 L (1.0-4.8) k/uL BUN (7-17) mg/dL Glucose (74-99) mg/dL POC Glucose (mg/dL) 126 H 126 H (75-99) mg/dL 06/05/17 06/05/17 06/05/17 Range/Units 07:04 11:29 16:35 WBC (3.8-10.6) k/uL MCHC (31.0-37.0) g/dL Neutrophils # (1.3-7.7) k/uL Lymphocytes # (1.0-4.8) k/uL BUN 18 H (7-17) mg/dL Glucose 129 H (74-99) mg/dL POC Glucose (mg/dL) 177 H 156 H (75-99) mg/dL Assessment and Plan (1) Multiple sclerosis exacerbation Status: Acute Code(s): G35 - MULTIPLE SCLEROSIS (2) Muscle spasticity Status: Acute Code(s): M62.838 - OTHER MUSCLE SPASM (3) Medical non-compliance Status: Acute Code(s): Z91.19 - PATIENT'S NONCOMPLIANCE W [facility] MEDICAL TREATMENT AND REGIMEN (4) History of seizures Status: Chronic Code(s): Z87.898 - PERSONAL HISTORY OF OTHER SPECIFIED CONDITIONS Plan: This patient is a 31-year-old female admitted to hospital for acute MS exacerbation. She had run out of several of her MS medications about a year ago. She comes today for further evaluation due to right-sided weakness. Patient is completing day 2 of IV Solu-Medrol for treatment of MS exacerbation. We will have PTOT see the patient tomorrow. Overall prognosis at this time remains guarded. Patient will complete 3 days of IV Solu-Medrol and be able to be discharged home. She should schedule appointments in the neurology and gastroenterology clinics about 2 weeks after discharge. We will plan to complete 3 days of IV Solu-Medrol treatment for her MS. She is to continue with outpatient psychiatry follow-up as well. She was restarted on Abilify as per the recommendations from psychiatry. She is also requesting Ativan or Klonopin for anxiety. We will defer to psychiatry in terms of further treatment of her underlying anxiety disorder. Patient will require possible inpatient rehab placement. We will await further input from PT/OT in regards to her progress. Patient will need to follow up in the outpatient clinics one she is discharged. She has been noncompliant in the past. We've encouraged her to follow up with her MS condition so as to prevent further progression of her underlying disorder. Patient should be ready for discharge to home or to inpatient rehab tomorrow. We will discuss tomorrow with physical therapy whether she would be a candidate for subacute rehab prior to returning home. We will continue close neurological follow-up with this patient during this admission. Her overall prognosis at this time remains guarded.
--- NOTE | 2017-06-05 20:36 | EEG ---
ELECTROENCEPHALOGRAM REPORT DATE OF EE06/04/2017 REFERRING PHYSICIAN: Dr. Cornell. INTERPRETING PHYSICIAN: Dr. Chapis Shepard MD. ELECTROENCEPHALOGRAPHIC EXAMINATION REPORT: INDICATION FOR EXAMINATION: This patient is a 31-year-old female admitted with acute MS exacerbation. The patient has remote history of seizure disorder and history of anxiety and depression. AGE: [age]. EEG FINDINGS: A routine 21 channel awake digital EEG recording was accomplished utilizing the 10-20 international system with bipolar and referential montages. The background activity in the most alert resting state consists of a low to medium amplitude, fairly well developed and well sustained 6 hertz activity over the posterior head regions. This posterior rhythm attenuates to eye opening. There is a small amount of low amplitude 18-20 hertz beta activity seen maximally over the anterior head regions. Muscle and movement artifact was observed on a few occasions during the tracing. Hyperventilation was not performed. Photic stimulation at flash frequencies of 2-30 hertz produced a good symmetrical occipital driving response. No epileptiform discharges were seen. IMPRESSION: This EEG is moderately abnormal in a diffuse fashion due to slowing of the EEG background. The EEG failed to reveal any focal, lateralized, or epileptiform abnormalities. Clinical correlation is recommended. MMODL / IJN: [id number] /
[2017-06-05] MEDS: ARIPiprazole 10 MG TAB PO SCH (21:17)
[2017-06-05 21:25] LABS: Glucose,Whole Blood 118 mg/dL (75-99)
[2017-06-06 05:55] LABS: Glucose,Whole Blood 122 mg/dL (75-99)
[2017-06-06] MEDS: INSULIN LISPRO (humaLOG) 300 UNIT/3 ML VIAL SQ SCH ×2 (07:38→13:19)
[2017-06-06 07:40] VITALS: PULSE 53; RESP 16; TEMP 97.7
[2017-06-06] MEDS: DIVALPROEX 500 MG TABLET.DR PO SCH (07:47)
[2017-06-06] MEDS: HEPARIN SODIUM,PORCINE 5,000 UNIT/ML 1 ML VIAL SQ SCH (07:47)
[2017-06-06] MEDS: GABAPENTIN 100 MG CAP PO SCH (07:47)
[2017-06-06] MEDS: FAMOTIDINE 20 MG TAB PO SCH (07:47)
[2017-06-06] MEDS: BACLOFEN 10 MG TAB PO SCH (07:47)
[2017-06-06] MEDS: clonazePAM 0.5 MG TAB PO SCH (07:51)
[2017-06-06 08:16] LABS: Basophils % (A) 0 %; CH 28.8; CHCM 31.1; Eosinophils % (A) 0 %; HCT 39.3 % (34.0-46.0); HDW 2.24; HGB 12.2 gm/dL (11.4-16.0); Hypochromasia Slight; Luc # (Auto) 0.11; Luc % (Auto) 1; Lymphocytes # (A) 0.7 k/uL (1.0-4.8); Lymphocytes % (A) 9 %; MCH 28.9 pg (25.0-35.0); MCHC 31.1 g/dL (31.0-37.0); MCV 92.9 fL (80.0-100.0); Mean Platelet Volume 7.7; Monocytes # (A) 0.4 k/uL (0-1.0); Monocytes % (A) 5 %; Neutrophils # (A) 6.5 k/uL (1.3-7.7); Neutrophils % (A) 84 %; RBC 4.23 m/uL (3.80-5.40); RDW 12.7 % (11.5-15.5); WBC 7.8 k/uL (3.8-10.6); WBC (Perox) 8.48
[2017-06-06 08:36] LABS: Anion Gap 9 mmol/L; Blood Urea Nitrogen 15 mg/dL (7-17); Calcium 9.1 mg/dL (8.4-10.2); Carbon Dioxide 28 mmol/L (22-30); Chloride 102 mmol/L (98-107); Glucose 124 mg/dL (74-99); Non-African American GFR(MDRD) >60 (>60 ml/min/1.73 sqM); Potassium 3.9 mmol/L (3.5-5.1); Sodium 139 mmol/L (137-145)
[2017-06-06 10:07] VITALS: BP 168/85
[2017-06-06 11:53] LABS: Glucose,Whole Blood 115 mg/dL (75-99)
[2017-06-06] MEDS: FOLIC ACID 1 MG TAB PO SCH (13:28)
[2017-06-06] MEDS: CHOLECALCIFEROL 1,000 UNIT TAB PO SCH (13:28)
[2017-06-06] MEDS: MULTIVITAMINS, THERA 1 EACH TAB PO SCH (13:28)
--- NOTE | 2017-06-06 14:51 | P.DS ---
Providers Date of admission: 06/04/17 13:10 Attending physician: Matheus Spencer Consults: 06/02/17 17:35 Consult Physician Routine Consulting Provider: Margaux Shepard Consult Reason/Comments: MS exacerbation Do you want consulting provider notified?: Yes 06/03/17 08:00 Consult Physician Routine Consulting Provider: Aide Corona Consult Reason/Comments: Patient with severe depression. Do you want consulting provider notified?: Yes 06/03/17 11:40 Consult Physician Routine Consulting Provider: Misael Mcgregor Consult Reason/Comments: evaluation of psych meds Do you want consulting provider notified?: Yes Primary care physician: [facility] Course: This 31-year-old woman with a past medical history multiple medical problems was admitted with weakness and the multiple sclerosis acute exacerbation. Patient was given IV steroids. Patient was seen by neurology. Patient improved significantly. Patient also had a history of noncompliance. Importance of compliance is stressed with the patient. Patient understands and agrees. Patient is keen on going home at this time. Patient be discharged in a stable condition with guarded prognosis. On exam vitals stable. Cardio S1 and S2 normal. Respiratory system clear to auscultation. Abdomen soft nontender. Nervous system diffuse weakness and wasting also. Final diagnosis 1. Multiple sclerosis acute exacerbation with a possible baseline remitting and relapsing type. 2. Seizure disorder. 3. History of anxiety depression bipolar. Next in 4. History of chronic back pain DJD. 5. Increased and ablation of possible secondary to steroids. 6. Increased obesity possibly second steroids. 7. Vitamin D deficiency. Plan - Discharge Summary New Discharge Prescriptions: New Nizatidine [Axid] 150 mg PO BID #60 capsule predniSONE 0 mg PO DIRECTED #150 tab Cholecalciferol [Vitamin D3] 1,000 unit PO DAILY@1200 tab clonazePAM [KlonoPIN] 0.5 mg PO TID #21 tab Continue ARIPiprazole [Abilify] 10 mg PO HS #30 tab Divalproex [Depakote] 500 mg PO TID #90 tablet. Gabapentin [Neurontin] 100 mg PO TID #30 cap SUMAtriptan SUCCINATE [Imitrex] 25 mg PO BID PRN PRN Reason: Migraine Headache Multivitamins, Thera [Multivitamin (formulary)] 1 tab PO DAILY Folic Acid 1 mg PO DAILY Changed Baclofen 10 mg PO TID #60 tab Discharge Medication List ARIPiprazole [Abilify] 10 mg PO HS #30 tab 03/09/17 [Rx] Divalproex [Depakote] 500 mg PO TID #90 tablet. 03/09/17 [Rx] Gabapentin [Neurontin] 100 mg PO TID #30 cap 03/09/17 [Rx] Folic Acid 1 mg PO DAILY 06/02/17 [History] Multivitamins, Thera [Multivitamin (formulary)] 1 tab PO DAILY 06/02/17 [History ] SUMAtriptan SUCCINATE [Imitrex] 25 mg PO BID PRN 06/02/17 [History] Baclofen 10 mg PO TID #60 tab 06/06/17 [Rx] Cholecalciferol [Vitamin D3] 1,000 unit PO DAILY@1200 tab 06/06/17 [Rx] Nizatidine [Axid] 150 mg PO BID #60 capsule 06/06/17 [Rx] clonazePAM [KlonoPIN] 0.5 mg PO TID #21 tab 06/06/17 [Rx] predniSONE 0 mg PO DIRECTED #150 tab 06/06/17 [Rx] Follow up Appointment(s)/Referral(s): Dr RUSSELL. Psychiatry [Other] - 1 Week Chapis Shepard MD [STAFF PHYSICIAN] - 1 Week (Dr. Shepard's office will call patient with an appointment date and time.) Evangelist Anne DO [Primary Care Provider] - 06/07/17 1:00 pm Patient Instructions/Handouts: Clonazepam (By mouth), Prednisone (By mouth), Nizatidine (By mouth), Multiple Sclerosis (DC) Activity/Diet/Wound Care/Special Instructions: Steroid Taper,Axid manual RXs as per neurology
--- NOTE | 2017-06-07 00:53 | P.PN ---
Subjective This patient is a 31-year-old right-handed white female who was admitted to hospital yesterday for acute MS exacerbation. Patient has been having multiple complaints of paresthesias and numbness as well as dizziness affecting mostly her right side. She has had multiple admissions for MS treatment. She has been noncompliant for treatment of her MS over the years. She is admitted to the hospital for acute MS exacerbation is currently on IV Solu-Medrol which we will continue for the next 2 days. She has noted some slight improvement in her condition since admission to the hospital. Patient states her right-sided numbness still is present but seems to wax and wane. She was able to work with physical therapy earlier today. She was seen by psychiatry who have restarted her on Abilify for treatment of underlying depression and bipolar disorder. Patient complains of increasing anxiety levels and she may benefit from mild sedation as needed. We will defer to psychiatry and further treatment of her anxiety disorder. Some of the anxiety may be heightened by the use of the IV steroids which should be gradually tapered at the time of her discharge. We will await further input from PT/OT in regards to inpatient rehab for this patient. She is able to ambulate only with the use of a walker apparently yesterday. Patient otherwise seems to be doing well today. She is completing 3 days of IV Solu-Medrol today. We will need her to complete a full 3 day course. Patient may need inpatient rehab but we will discuss this with physical therapy tomorrow. She should be ready for discharge home tomorrow if she is completed her IV Solu-Medrol course. She is to follow-up with psychiatry in the outpatient setting. She was restarted on her Abilify. We have deferred to psychiatry in terms of further management of her underlying anxiety disorder. Patient has shown significant improvement in her overall neurological status since admission to hospital. She is again counseled to make sure she is compliant with taking her medications. She should schedule follow-up with her primary care physician in one week. All of her discharge medications were reviewed by Dr. Cornell. She is to continue with oral prednisone taper for the next 6 weeks. She may schedule follow-up in the outpatient neurology clinic in 3-4 weeks. Her overall prognosis at this time remains guarded. Objective - Vital Signs Vital signs: Vital Signs Temp 97.7 F 06/06/17 07:00 Pulse 53 L 06/06/17 07:00 Resp 16 06/06/17 09:00 BP 168/85 06/06/17 09:45 Pulse Ox 97 06/06/17 07:00 Intake & Output 06/05/17 06/06/17 06/06/17 18:59 06:59 18:59 Intake Total 600 1410 Balance 600 1410 Weight 50.802 kg Intake: IV 10 Invasive Line 3 10 Intake, IV Titration 350 1000 Amount Sodium Chloride 0.9% 1, 250 800 000 ml @ 50 mls/hr IV . Q20H JAMES Rx#:[id number] methylPREDNISolone SOD 100 200 SUCCI 250 mg In Sodium Chloride 0.9% 100 ml @ 100 mls/hr IVPB Q6HR JAMES Rx#:[id number] Oral 250 400 Other: Voiding Method Toilet Toilet Toilet # Voids 3 1 # Bowel Movements 1 - Exam Physical examination: PHYSICAL EXAMINATION: Patient is resting comfortably in bed. VITAL SIGNS: Blood pressure is [168/85]. Heart rate is [53]. Respiration is [16] . Temperature is [97.7]. HEENT: Head is atraumatic, neck is supple, there were no carotid bruits. CHEST: Lungs are clear to auscultation and percussion. CARDIAC: S1, S2 normal rate and rhythm. There is no murmur. ABDOMEN: Soft and nontender. Bowel sounds are present. EXTREMITIES: There is no pedal edema. Peripheral pulses are present. Neurological examination: Respirations neurological examination is unchanged from yesterday. Patient continues to have some right-sided hemiparesis. - Labs CBC & Chem 7: 06/06/17 07:43 06/06/17 07:43 Labs: Abnormal Lab Results - Last 24 Hours (Table) 06/05/17 06/05/17 06/06/17 Range/Units 16:35 21:12 05:53 Lymphocytes # (1.0-4.8) k/uL Glucose (74-99) mg/dL POC Glucose (mg/dL) 156 H 118 H 122 H (75-99) mg/dL 06/06/17 06/06/17 06/06/17 Range/Units 07:43 07:43 11:51 Lymphocytes # 0.7 L (1.0-4.8) k/uL Glucose 124 H (74-99) mg/dL POC Glucose (mg/dL) 115 H (75-99) mg/dL Assessment and Plan (1) Multiple sclerosis exacerbation Status: Acute Code(s): G35 - MULTIPLE SCLEROSIS (2) Muscle spasticity Status: Acute Code(s): M62.838 - OTHER MUSCLE SPASM (3) Medical non-compliance Status: Acute Code(s): Z91.19 - PATIENT'S NONCOMPLIANCE W OTH MEDICAL TREATMENT AND REGIMEN (4) History of seizures Status: Chronic Code(s): Z87.898 - PERSONAL HISTORY OF OTHER SPECIFIED CONDITIONS Plan: This patient is a 31-year-old female admitted to hospital for acute MS exacerbation. She had run out of several of her MS medications about a year ago. She comes today for further evaluation due to right-sided weakness. Patient is completing day 2 of IV Solu-Medrol for treatment of MS exacerbation. We will have PTOT see the patient tomorrow. Overall prognosis at this time remains guarded. Patient will complete 3 days of IV Solu-Medrol and be able to be discharged home. She should schedule appointments in the neurology and gastroenterology clinics about 2 weeks after discharge. We will plan to complete 3 days of IV Solu-Medrol treatment for her MS. She is to continue with outpatient psychiatry follow-up as well. She was restarted on Abilify as per the recommendations from psychiatry. She is also requesting Ativan or Klonopin for anxiety. We will defer to psychiatry in terms of further treatment of her underlying anxiety disorder. Patient will require possible inpatient rehab placement. We will await further input from PT/OT in regards to her progress. Patient will need to follow up in the outpatient clinics one she is discharged. She has been noncompliant in the past. We've encouraged her to follow up with her MS condition so as to prevent further progression of her underlying disorder. Patient should be ready for discharge to home or to inpatient rehab tomorrow. We will discuss tomorrow with physical therapy whether she would be a candidate for subacute rehab prior to returning home. Patient has completed her full course of IV steroid therapy. She has responded well to this therapy for her acute MS exacerbation. She is once again counseled in being compliant in taking her home medications. She has been prescribed several occasions today for discharge planning. The patient should follow-up with her primary care physician in one week. She is to continue on tapering doses of prednisone over the next 6 weeks as was instructed to the patient in detail. She was given a schedule for slowly weaning back on her prednisone dosage over the next 6 weeks. She may follow-up in the outpatient neurology clinic in 3-4 weeks. We will continue close neurological follow-up with this patient during this admission. Her overall prognosis at this time remains guarded.
== END 2017-06-06 15:11 | disposition home or self-care (01) | DRG 59 ==
LOC: EC 15:39 → SUPCPDRO 15:39 → 5MS5E 17:33 → INTOOBSV 17:33 → OBSVTOIN 06-04 13:10
PROVIDERS: ADMIT Internal Medicine; ATTEND Internal Medicine
DX: G35 Multiple sclerosis (principal); F32.2 Major depressive disorder, single episode, severe without psychotic features; M41.9 Scoliosis, unspecified; G62.9 Polyneuropathy, unspecified; E55.9 Vitamin D deficiency, unspecified; T38.0X5A Adverse effect of glucocorticoids and synthetic analogues, initial encounter; R73.9 Hyperglycemia, unspecified; F41.9 Anxiety disorder, unspecified; F43.10 Post-traumatic stress disorder, unspecified; G40.909 Epilepsy, unspecified, not intractable, without status epilepticus; G89.29 Other chronic pain; M19.90 Unspecified osteoarthritis, unspecified site; M54.9 Dorsalgia, unspecified; Y92.239 Unspecified place in hospital as the place of occurrence of the external cause; Z79.899 Other long term (current) drug therapy; Z91.19 Patient's noncompliance with other medical treatment and regimen
CPT/HCPCS: 36415; 71020; 80048; 80053; 81001; 81025; 82306; 83036; 83690; 85025; 95819; 96361; 96365; 96366; 96372; 96374; 96375; 96376; 99285

== ENCOUNTER 2017-07-10 13:13 | Inpatient (IN) | payer OTHER ==
[2017-07-10] MEDS ORDERED: SODIUM CHLORIDE 0.9% 1,000 ML IV ONE (13:32)
[2017-07-10 14:16] LABS: Basophils % (A) 1 %; CH 27.6; CHCM 31.8; Eosinophils % (A) 0 %; HCT 40.3 % (34.0-46.0); HDW 2.11; HGB 12.9 gm/dL (11.4-16.0); Luc % (Auto) 2; Lymphocytes # (A) 1.4 k/uL (1.0-4.8); Lymphocytes % (A) 26 %; MCH 27.7 pg (25.0-35.0); MCHC 31.9 g/dL (31.0-37.0); Mean Platelet Volume 7.9; Monocytes # (A) 0.3 k/uL (0-1.0); Monocytes % (A) 5 %; Neutrophils # (A) 3.5 k/uL (1.3-7.7); Neutrophils % (A) 66 %; RBC 4.63 m/uL (3.80-5.40); RDW 13.7 % (11.5-15.5); WBC 5.3 k/uL (3.8-10.6); WBC (Perox) 5.38
[2017-07-10 14:20] LABS: MCV 86.9 fL (80.0-100.0)
[2017-07-10 14:20] LABS: Appearance,Urine Clear (Clear); Bacteria,Urine Rare /hpf; Bilirubin,Urine Negative (Negative); Glucose,Urine (UA) Negative (Negative); Ketones,Urine Negative (Negative); Leukocyte Esterase,Urine Negative (Negative); Nitrite,Urine Negative (Negative); Particle Count 2957; Protein,Urine Negative (Negative); RBC,Urine <1 /hpf (0-5); Squamous Epithelial Cell,Urine 1 /hpf (0-4); UA Billing (MACRO vs. MICRO) MICRO; Urobilinogen,Urine <2.0 mg/dL (<2.0); WBC,Urine 3 /hpf (0-5)
--- NOTE | 2017-07-10 14:33 | XR ---
EXAMINATION TYPE: XR chest 2V DATE OF EXAM: 07/10/2017 COMPARISON: 06/02/2017 HISTORY: Fatigue and tremors. History of MS TECHNIQUE: Frontal and lateral views of the chest are obtained. FINDINGS: There is no focal air space opacity, pleural effusion, or pneumothorax seen. The cardiac silhouette size is within normal limits. The osseous structures are intact. IMPRESSION: No acute cardiopulmonary process.
[2017-07-10 14:43] LABS: ALT 24 U/L (9-52); AST 17 U/L (14-36); Alkaline Phosphatase 53 U/L (38-126); Anion Gap 8 mmol/L; Blood Urea Nitrogen 10 mg/dL (7-17); Carbon Dioxide 22 mmol/L (22-30); Chloride 111 mmol/L (98-107); Glucose 95 mg/dL (74-99); Magnesium 1.8 mg/dL (1.6-2.3); Non-African American GFR(MDRD) >60 (>60 ml/min/1.73 sqM); Potassium 4.2 mmol/L (3.5-5.1); Sodium 141 mmol/L (137-145); Total Bilirubin 0.2 mg/dL (0.2-1.3); Total Protein 6.3 g/dL (6.3-8.2)
--- NOTE | 2017-07-10 15:02 | ED ---
General Adult HPI - General Chief complaint: Recheck/Abnormal Lab/Rx Stated complaint: Hx MS, MUSCLE TREMORS Time Seen by Provider: 07/10/17 13:20 Source: patient Mode of arrival: EMS Limitations: no limitations - History of Present Illness Initial comments: This is a 31-year-old female with a history of multiple sclerosis remitting in the late relapsing who follows up with Dr. Alcazar as an outpatient presents to the ED for which she believes is an MS exacerbation. The patient states that she has complete right-sided throbbing and numbness. She states that she also had an episode of difficulty with swallowing and choking and felt she was short of breath. She states that she is also been passing out multiple times which is new for her. She denies any chest pains. She states that she feels generally weak everywhere. Upon further review of the chart it appears the patient does have a history of multiple cirrhosis confirmed on MRI however tends to present with extremity weakness on the right side which is consistent with her current presentation. She denies any nausea, vomiting, or diarrhea. No fevers or chills. No other complaints. - Related Data Previous Rx's Medication Instructions Recorded clonazePAM [KlonoPIN] 0.5 mg PO TID #21 tab 06/06/17 Allergies Allergy/AdvReac Type Severity Reaction Status Date / Time No Known Allergies Allergy Verified 07/10/17 14:01 Review of Systems ROS Statement: Those systems with pertinent positive or pertinent negative responses have been documented in the HPI. ROS Other: All systems not noted in ROS Statement are negative. Past Medical History Past Medical History: Neurologic Disorder, Seizure Disorder Additional Past Medical History / Comment(s): multiple sclerosis, chronic back pain, scoliosis, ptsd, nuropathy "has epsiodes where i lose my vision for 48 hours sometimes", History of Any Multi-Drug Resistant Organisms: None Reported Past Surgical History: Appendectomy, Section, Tubal Ligation Additional Past Surgical History / Comment(s): D&C, CORRECTIVE EYE SURGERY Past Anesthesia/Blood Transfusion Reactions: No Reported Reaction Additional Past Anesthesia/Blood Transfusion Reaction / Comment(s): "SPINAL WAS DIFFICULT D/T SCOLIOSIS" Past Psychological History: Anxiety, Depression Smoking Status: Never smoker Past Alcohol Use History: Occasional Past Drug Use History: None Reported - Past Family History Father Family Medical History: Unable to Obtain Additional Family Medical History / Comment(s): does'nt know Mother Family Medical History: COPD Additional Family Medical History / Comment(s): 2 aunts have ms, another aunt has copd and cancer, grandmother had breast cancer General Exam - General Exam Comments Initial Comments: Constitutional: Awake alert appears fatigued and depressed, will not make eye contact Head: Normocephalic atraumatic Eyes: no conjunctival injection No scleral icterus EOMI ENT: Oropharynx is nonerythematous, there is equal palatal elevation bilaterally , midline tongue extrusion Neck: No JVD Supple Heart: Regular rate rhythm normal S1-S2 no murmurs Lungs: Clear to auscultation bilaterally No wheezing No rales Abdomen: Soft nondistended nontender Extremities: Non edematous DP pulses intact Radial pulses intact Neuro: A&Ox3 patient reports decreased sensation to the right lower extremity and right upper extremity, she also reports tenderness to palpation along the entire right side of her body, she has bilateral lower extremity weakness and is unable to keep her legs up off of the gurney, she does not appear to have any ataxia with finger-nose and heel to glynn testing, pupils are 4 mm and reactive, extraocular muscles are intact Psych: She appears depressed and will not make eye contact Limitations: no limitations Course Vital Signs 07/10/17 13:17 Temperature 98.1 F Pulse Rate 96 Respiratory 17 Rate Blood Pressure 150/92 O2 Sat by Pulse 98 Oximetry EKG Findings - EKG Comments: EKG Findings:: EKG showing normal sinus rhythm with a rate of 94. No abnormal ST segment changes or T-wave inversion. QTC is 437. Other intervals normal. No ectopy. Medical Decision Making - Medical Decision Making This is a 31-year-old female presents emergency department for right-sided pain , numbness, and generalized weakness. Labwork was reviewed and unremarkable. Chest x-ray was also unremarkable. EKG normal. The patient's symptoms are consistent with previous episodes of emesis exacerbations. I'm going to keep her in the hospital. Spoke with Dr. Cornell accepts the admission. He would like Dr. Alcazar on the case. The patient was updated and agrees with this plan and all questions were answered. - Lab Data Result diagrams: 07/10/17 13:20 07/10/17 14:15 Lab Results 07/10/17 07/10/17 07/10/17 Range/Units 13:20 13:55 13:55 WBC 5.3 (3.8-10.6) k/uL RBC 4.63 (3.80-5.40) m/uL Hgb 12.9 (11.4-16.0) gm/dL Hct 40.3 (34.0-46.0) % MCV 86.9 D (80.0-100.0) fL MCH 27.7 (25.0-35.0) pg MCHC 31.9 (31.0-37.0) g/dL RDW 13.7 (11.5-15.5) % Plt Count 204 (150-450) k/uL Neutrophils % 66 % Lymphocytes % 26 % Monocytes % 5 % Eosinophils % 0 % Basophils % 1 % Neutrophils # 3.5 (1.3-7.7) k/uL Lymphocytes # 1.4 (1.0-4.8) k/uL Monocytes # 0.3 (0-1.0) k/uL Eosinophils # 0.0 (0-0.7) k/uL Basophils # 0.0 (0-0.2) k/uL Sodium (137-145) mmol/L Potassium (3.5-5.1) mmol/L Chloride (98-107) mmol/L Carbon Dioxide (22-30) mmol/L Anion Gap mmol/L BUN (7-17) mg/dL Creatinine (0.52-1.04) mg/dL Est GFR (MDRD) Af Amer (>60 ml/min/1.73 sqM) Est GFR (MDRD) Non-Af (>60 ml/min/1.73 sqM) Glucose (74-99) mg/dL Calcium (8.4-10.2) mg/dL Magnesium (1.6-2.3) mg/dL Total Bilirubin (0.2-1.3) mg/dL AST (14-36) U/L ALT (9-52) U/L Alkaline Phosphatase (38-126) U/L Total Protein (6.3-8.2) g/dL Albumin (3.5-5.0) g/dL Lipase (23-300) U/L Urine Color Light Yellow Urine Appearance Clear (Clear) Urine pH 8.0 (5.0-8.0) Ur Specific [place] 1.010 (1.001-1.035) Urine Protein Negative (Negative) Urine Glucose (UA) Negative (Negative) Urine Ketones Negative (Negative) Urine Blood Moderate H (Negative) Urine Nitrite Negative (Negative) Urine Bilirubin Negative (Negative) Urine Urobilinogen <2.0 (<2.0) mg/dL Ur Leukocyte Esterase Negative (Negative) Urine RBC <1 (0-5) /hpf Urine WBC 3 (0-5) /hpf Ur Squamous Epith Cells 1 (0-4) /hpf Urine Bacteria Rare H (None) /hpf Urine HCG, Qual Not Detected (Not Detectd) 07/10/17 Range/Units 14:15 WBC (3.8-10.6) k/uL RBC (3.80-5.40) m/uL Hgb (11.4-16.0) gm/dL Hct (34.0-46.0) % MCV (80.0-100.0) fL MCH (25.0-35.0) pg MCHC (31.0-37.0) g/dL RDW (11.5-15.5) % Plt Count (150-450) k/uL Neutrophils % % Lymphocytes % % Monocytes % % Eosinophils % % Basophils % % Neutrophils # (1.3-7.7) k/uL Lymphocytes # (1.0-4.8) k/uL Monocytes # (0-1.0) k/uL Eosinophils # (0-0.7) k/uL Basophils # (0-0.2) k/uL Sodium 141 (137-145) mmol/L Potassium 4.2 (3.5-5.1) mmol/L Chloride 111 H (98-107) mmol/L Carbon Dioxide 22 (22-30) mmol/L Anion Gap 8 mmol/L BUN 10 (7-17) mg/dL Creatinine 0.58 (0.52-1.04) mg/dL Est GFR (MDRD) Af Amer >60 (>60 ml/min/1.73 sqM) Est GFR (MDRD) Non-Af >60 (>60 ml/min/1.73 sqM) Glucose 95 (74-99) mg/dL Calcium 8.0 L (8.4-10.2) mg/dL Magnesium 1.8 (1.6-2.3) mg/dL Total Bilirubin 0.2 (0.2-1.3) mg/dL AST 17 (14-36) U/L ALT 24 (9-52) U/L Alkaline Phosphatase 53 (38-126) U/L Total Protein 6.3 (6.3-8.2) g/dL Albumin 3.8 (3.5-5.0) g/dL Lipase 46 (23-300) U/L Urine Color Urine Appearance (Clear) Urine pH (5.0-8.0) Ur Specific [place] (1.001-1.035) Urine Protein (Negative) Urine Glucose (UA) (Negative) Urine Ketones (Negative) Urine Blood (Negative) Urine Nitrite (Negative) Urine Bilirubin (Negative) Urine Urobilinogen (<2.0) mg/dL Ur Leukocyte Esterase (Negative) Urine RBC (0-5) /hpf Urine WBC (0-5) /hpf Ur Squamous Epith Cells (0-4) /hpf Urine Bacteria (None) /hpf Urine HCG, Qual (Not Detectd) Disposition Clinical Impression: Exacerbation of multiple sclerosis Disposition: ADMITTED IP TO THIS HOSP Condition: Stable
[2017-07-10] MEDS ORDERED: ACETAMINOPHEN TAB 325 MG TAB PO PRN (15:16)
[2017-07-10] MEDS ORDERED: NALOXONE 0.4 MG/ML 1 ML VIAL IV PRN (15:16)
[2017-07-10] MEDS ORDERED: ONDANSETRON 4 MG/2 ML VIAL IVP PRN (15:16)
[2017-07-10] MEDS ORDERED: MORPHINE SULFATE 10 MG/ML SYRINGE IVP STA (15:28)
[2017-07-10 16:54] LABS: Glucose,Whole Blood 101 mg/dL (75-99)
[2017-07-10] MEDS: INSULIN LISPRO (humaLOG) 300 UNIT/3 ML VIAL SQ SCH ×2 (18:00→21:12)
--- NOTE | 2017-07-10 19:11 | MR ---
EXAMINATION TYPE: MR brain wo/w con DATE OF EXAM: 07/10/2017 COMPARISON: NONE HISTORY: New symptoms of MS, MS exacerbation with new onset weakness and fatigue EXAMINATION TYPE: MR brain wo/w con DATE OF EXAM: 07/10/2017 COMPARISON: Recent MRI brain February 25, 2017. HISTORY: New symptoms of MS, MS exacerbation with new onset weakness and fatigue TECHNIQUE: Multiplanar, multisequence images of the brain and brainstem is performed without and with IV contras t, utilizing 5.0 mL intravenous Gadavist gadolinium contrast is administered intravenously. Demyelin ating disease protocol with additional Sagittal Flair sequence performed. FINDINGS: T2 Lesions Present : Yes Approximate Number of Lesions: Approximately 5 -10 tiny lesions Locations Identified : Scattered small lesions Size of Reference Lesion(s): 1. 0.5 cm x 0.3 cm x 0.2 cm on axial image 20 and sagittal image 10 left periventricular parietal de ep lesion stable. Enhancing Lesion(s) Present: No Change from Prior: Stable Diffusion weighted images demonstrate no evidence of a recent infarct or other diffusion abnormality. There is no worrisome extra-axial fluid collection. The ventricular system and cisternal spaces ar e normal in size and appearance. The brain volume is age appropriate. Midline structures demonstrate normal morphology. The craniocervical junction appears within normal limits. Post contrast images demonstrate no abnormal enhancement. The dural venous sinuses appear pa tent. The visualized sinuses are clear and the globes are intact. IMPRESSION: Mild to minimal nonspecific white matter changes redemonstrated may be on basis of patien t's known multiple sclerosis. No new or enhancing lesions are clearly seen.
[2017-07-10] MEDS: HYDROmorphone 0.5 MG/0.5 ML SYRINGE IVP PRN (19:51)
[2017-07-10 20:30] LABS: Glucose,Whole Blood 128 mg/dL (75-99)
[2017-07-10] MEDS: LORazepam 2 MG/ML INJ IV PRN (20:34)
[2017-07-10] MEDS: clonazePAM 0.5 MG TAB PO SCH (20:34)
[2017-07-10] MEDS ORDERED: INSULIN LISPRO (humaLOG) 300 UNIT/3 ML VIAL SQ SCH (21:00)
[2017-07-10] MEDS: BACLOFEN 10 MG TAB PO SCH (21:12)
--- NOTE | 2017-07-10 21:19 | HP ---
HISTORY AND PHYSICAL CHIEF COMPLAINTS: Right-sided throbbing numbness, headaches and weakness of the right leg. HISTORY OF PRESENT ILLNESS: This 31-year-old woman with a past medical history of multiple medical problems, including multiple sclerosis, seizure disorder, history of back pain, DJD, being followed by Dr. Alcazar as well as Dr. Anne and Dr. Marvin Hugo in the outpatient setting, was having pain and difficulty in walking and weakness of the right leg today. The patient also had multiple other symptomatology, including right-sided throbbing and numbness. Because of concerns about MS acute exacerbation, the patient came to [facility] and was admitted for further evaluation and treatment. There is no history of fever, rigor or chills, no history of headache, loss of consciousness or seizures. PAST MEDICAL HISTORY: 1. Multiple sclerosis. 2. Seizure disorder. 3. History of DJD. MEDICATIONS PRIOR TO ADMISSION: Medications prior to admission include Klonopin 0.5 t.i.d. ALLERGIES: NONE. FAMILY HISTORY: History of COPD in the family. SOCIAL HISTORY: No history of smoking. Occasional alcohol intake. REVIEW OF SYSTEMS: ENT: No diminished hearing. No diminished vision. CARDIOVASCULAR SYSTEM: No angina, palpitations. RESPIRATORY SYSTEM: No cough, hemoptysis. GI: No nausea, vomiting. : No dysuria or retention. NERVOUS SYSTEM: As mentioned earlier. ALLERGY/IMMUNOLOGY: No asthma, hayfever. MUSCULOSKELETAL: As mentioned earlier. HEMATOLOGY/ONCOLOGY: No history of anemia. ENDOCRINE: No history of diabetes, hypothyroidism. CONSTITUTIONAL: As mentioned earlier. DERMATOLOGY: Negative. RHEUMATOLOGY: Negative. PHYSICAL EXAMINATION: Patient alert and oriented x3. Pulse 77, blood pressure 159/62, respiration 16, temperature 98 degrees, pulse ox 96% on room air. HEENT: Conjunctivae normal. Oral mucosa moist. NECK: No jugular venous distention. No carotid bruit. No lymph node enlargement. CARDIOVASCULAR: S1, S2 muffled. RESPIRATORY SYSTEM: Breath sounds diminished at the bases. No rhonchi. No crackles. ABDOMEN: Soft, nontender. No mass palpable. LEGS: No edema. No swelling. NERVOUS SYSTEM: Higher functions as mentioned earlier. Cranial nerves 2 through 12 grossly intact. Moves all 4 limbs. Diffuse weakness and wasting also present. Gait cannot be tested. SKIN: No ulcer, rash, bleeding. LYMPHATICS: No lymph node palpable in neck, axillae or groin. JOINTS: No active deforming arthropathy. LABS AT THIS TIME: CBC within normal limits. Glucose 101. UA noted. ASSESSMENT: 1. Possible acute exacerbation of multiple sclerosis. 2. History of seizure disorder. 3. History of chronic back pain, degenerative joint disease. 4. Appendectomy. 5. Tubal ligation. 6. Scoliosis. 7. Anxiety, depression. RECOMMENDATIONS AND DISCUSSION: In this 31-year-old woman who presented with multiple complex medical issues, at this time I would recommend to continue current medications, continue symptomatic treatment. I recommend high-dose IV steroids, DVT prophylaxis. Neurology consultation. Neurovascular workup. I would also recommend PT/ OT evaluation and continued attempts at rehab also. Otherwise, overall prognosis is guarded because of multiple complex medical issues. Further recommendations to follow. LEANNE / NICO: [id number] /
[2017-07-10] MEDS: methylPREDNISolone SOD SUCCI 250 MG in SODIUM CHLORIDE 0.9% 100 ML IVPB SCH (23:22)
[2017-07-10] MEDS: HYDROcodone/APAP 5-325MG 1 EACH TAB PO PRN (23:26)
[2017-07-11] MEDS: HYDROmorphone 0.5 MG/0.5 ML SYRINGE IVP PRN (03:50)
[2017-07-11] MEDS: HYDROcodone/APAP 5-325MG 1 EACH TAB PO PRN ×2 (06:54→15:44)
[2017-07-11 07:22] LABS: Glucose,Whole Blood 154 mg/dL (75-99)
[2017-07-11] MEDS: methylPREDNISolone SOD SUCCI 250 MG in SODIUM CHLORIDE 0.9% 100 ML IVPB SCH ×3 (07:52→23:01)
[2017-07-11] MEDS: BACLOFEN 10 MG TAB PO SCH ×3 (07:52→20:18)
[2017-07-11] MEDS: clonazePAM 0.5 MG TAB PO SCH ×3 (07:55→20:18)
[2017-07-11] MEDS: INSULIN LISPRO (humaLOG) 300 UNIT/3 ML VIAL SQ SCH ×4 (07:55→20:17)
[2017-07-11] MEDS: LORazepam 2 MG/ML INJ IV PRN (08:43)
--- NOTE | 2017-07-11 08:56 | CONS ---
CONSULTATION DATE OF CONSULTATION: 07/10/2017 CHIEF COMPLAINT: Weakness. HISTORY OF PRESENT ILLNESS: The patient is a 31-year-old, female who is being evaluated today on 07/10/2017 by the Neurology Service per the request of Dr. Cornell for generalized weakness. The patient states that she has been feeling weak all day today. She states that the weakness is generalized but is slightly more in the lower extremities compared to the upper extremities. She informs me that she is being worked up for possible multiple sclerosis, and was referred to my office and is scheduled for a consultation but this is scheduled for later this month. She does have a family history of multiple sclerosis. She is also complaining of generalized muscle aches. She feels that she is having muscle spasms mostly in the lower extremities. Her CBC was normal. Her comprehensive metabolic profile was normal except for mild hypocalcemia at 8.0. Her urinalysis showed no evidence of any urinary tract infection. She is also complaining of blurred vision in her right eye. She states that she has chronic visual changes in her left eye due to an old injury. I did order an MRI of the brain at the time that I was contacted for the consultation. The MRI was just completed prior to my evaluation and it did show nonspecific white matter changes, but no abnormal enhancement was seen. PAST MEDICAL HISTORY: Depression, anxiety disorder, scoliosis, chronic low back pain, history of tubal ligation, , and appendectomy. She also had surgery on her left eye. SOCIAL HISTORY: She denies any tobacco or drug use. She occasionally drinks alcohol. FAMILY HISTORY: Positive for multiple sclerosis and COPD and cancer. HOME MEDICATIONS: Klonopin. ALLERGIES: No known drug allergies. REVIEW OF SYSTEMS: CONSTITUTIONAL: Positive for fatigue. EYES: As mentioned above. ENT: Negative. CARDIOVASCULAR: Negative. RESPIRATORY: Negative. NEUROLOGICAL: As mentioned above. GASTROINTESTINAL: Positive for occasional nausea. GENITOURINARY: Negative. PSYCHIATRIC: Positive for history of depression and anxiety disorder. MUSCULOSKELETAL: As mentioned above. DERMATOLOGICAL: Negative. ENDOCRINE: Negative. PHYSICAL EXAM: Vital signs show a temperature of 98.0, pulse 77, respirations 16, blood pressure 129/92. GENERAL APPEARANCE: The patient is a thin female, who appears to be in mild distress due to pain. HEENT: Normocephalic, atraumatic, no facial asymmetry is seen. Neck is supple with no masses felt. CARDIOVASCULAR: Regular rate and rhythm. ABDOMEN: Nontender, nondistended. Extremities showed no edema or clubbing. NEUROLOGICAL EXAM: The patient is alert, aware and oriented x3. Speech and language are normal. No pronator drift is seen in the upper extremities. Sensory examination showed tingling sensation involving bilateral lower extremities and the right upper extremity. There is significant increase in muscle tone involving the lower extremities, consistent with spasticity. No seizure-like activity is seen. No facial asymmetry is noticed on cranial nerve testing. IMPRESSION: 1. Generalized weakness. 2. Sensory deficit. 3. Spasticity. 4. Visual changes. 5. Hypocalcemia. 6. Nonspecific white matter changes on MRI of the brain with no enhancement. RECOMMENDATION: The patient's symptoms are of a subacute onset. At this time, there is concern for demyelinating disease, although her MRI of the brain showed no abnormal enhancement to explain her current symptoms. I will order an MRI of the cervical and thoracic spine to check for any spinal cord lesions. I did start her on IV Solu-Medrol 250 mg every 8 hours. I did order for Accu-Cheks and sliding scale insulin. Physical Therapy has been consulted. I do recommend calcium supplementation. I will start her on baclofen 10 mg 3 times daily for her spasticity. The patient will obviously need further outpatient workup to check for evidence of multiple sclerosis, especially given her current symptoms and strong family history. Continue neuro checks. I will continue to follow with you. Further recommendations to follow. Thank you for allowing me to participate in the care of your patient. If you have any questions, please feel free to contact me. LEANNE / NICO: [phone] /
[2017-07-11 12:31] LABS: Glucose,Whole Blood 165 mg/dL (75-99)
[2017-07-11] MEDS ORDERED: SUMAtriptan SUCCINATE 50 MG TAB PO PRN (13:31)
[2017-07-11 16:57] LABS: Glucose,Whole Blood 152 mg/dL (75-99)
--- NOTE | 2017-07-11 17:05 | P.PN ---
Subjective Progress Note Date: 07/11/17 Patient is a pleasant 31-year-old female who is being followed by the neurology service for generalized weakness. Patient does state she has a history of MS but has not been taking her MS medication for the last year. Patient reports she was on Betaseron in the past. Patient states her neurologist moved out of town and she has not followed up with anyone new. Patient states she has an appointment to be seen in our office within the next month. Patient does have family history of multiple sclerosis. Patient came to [facility] with complaints of generalized muscle aches and weakness. She states her lower extremities are weaker than the upper extremities. She reports muscle spasms mostly in the lower extremities. Patient also complains of blurred vision in her right eye. Her MRI showed nonspecific white matter changes but no abnormal enhancement was seen. She is awaiting an MRI of the cervical and thoracic spine to be done later today. Patient reports she feels she is minimally better since starting the steroid treatment. Patient and staff reports she is having episodes of anxiety. She has IV Ativan 0.5 mg when necessary. At the time of my evaluation, patient's resting comfortably in bed and appears to be in no acute distress. Objective - Vital Signs Vital signs: Vital Signs Temp 97.8 F 07/11/17 15:00 Pulse 82 07/11/17 16:00 Resp 18 07/11/17 16:00 BP 132/81 07/11/17 15:00 Pulse Ox 98 07/11/17 15:00 Intake & Output 07/10/17 07/11/17 07/11/17 18:59 06:59 18:59 Weight 50.349 kg 50.349 kg Other: Voiding Method Toilet Toilet Bedside Commode Bedside Commode # Voids 1 5 2 - Exam PHYSICAL EXAM: GENERAL APPEARANCE: Patient is a well-developed, female who appears to be in no acute distress. HEENT: Normocephalic, atraumatic, no facial asymmetry is seen. Neck is supple with no masses felt. CARDIOVASCULAR: Regular rate and rhythm. ABDOMEN: Nontender, nondistended. EXTREMITIES: Show no edema or clubbing. NEUROLOGICAL EXAM: Patient is awake, alert, and oriented 3. Speech and language are normal. Sensory exam shows decreased sensation in bilateral lower extremities and in the right upper extremity. Patient does have increased muscle tone involving the lower extremities which is consistent with spasticity. No tremors or seizure-like activities noted. No facial asymmetry is seen on cranial nerve testing. - Labs CBC & Chem 7: 07/10/17 13:20 07/10/17 14:15 Labs: Abnormal Lab Results - Last 24 Hours (Table) 07/10/17 07/11/17 07/11/17 Range/Units 20:29 07:17 12:22 POC Glucose (mg/dL) 128 H 154 H 165 H (75-99) mg/dL Assessment and Plan Plan: Impression: 1. Generalized weakness 2. Sensory deficit 3. Spasticity 4. Visual changes 5. Hypocalcemia 6. Nonspecific white matter changes on MRI of the brain Recommendation: Patient's symptoms are concerning for demyelinating disease, although her MRI of the brain showed no abnormal enhancement to explain her current symptoms. She is awaiting an MRI of the cervical and thoracic spine to evaluate for any spinal cord lesions. She is currently receiving IV Solu- Medrol 250 mg every 8 hours. She is receiving Accu-Cheks and sliding scale insulin. Physical therapy is on consult. She is receiving baclofen 10 mg 3 times daily for her spasticity. Patient has history of anxiety and reports being on multiple different medications for her anxiety. Currently she has Ativan 0.5 mg IV ordered as needed. Patient will need further outpatient workup to confirm multiple sclerosis and to be started on disease modifying therapy if needed. Continue neurological checks. Continue IV steroids. I will continue to follow with you. Further recommendations to follow. I performed an examination of the patient and discussed the management with the CHAINSTITCH SEAT JOINER. I have reviewed the CHAINSTITCH SEAT JOINER notes and agree with the findings and plan of care.
[2017-07-11 20:21] LABS: Glucose,Whole Blood 143 mg/dL (75-99)
--- NOTE | 2017-07-11 23:53 | MR ---
MRI CERVICAL SPINE: MR scan thoracic spine CLINICAL HISTORY: Weakness. Multiple sclerosis. TECHNIQUE: Multiplanar, multisequence imaging of the cervical spine and thoracic spine is performed w ithout IV contrast. COMPARISON: None. FINDINGS: The cervical vertebra have normal spacing and alignment. There are small posterior disc bul ges from C3 to C6. There is no spinal stenosis. Cervical spinal cord has fairly normal signal pattern . There is no evidence of edema. I see no focal bone destruction. Thoracic vertebra have normal alignment. There is no acute compression fracture. There is slight ante rior wedging of T4 vertebra that is probably developmental. There is no bone edema. Thoracic spinal cord has normal signal pattern without evidence of edema. There is no evidence of a m ass in the spinal cord. There is no thoracic paraspinal mass. I see no focal bone destruction. CONCLUSION: Mild spondylotic changes in the cervical spine with small multilevel posterior cervical disc bulging. No spinal stenosis. Mild wedging of T4 vertebra of 10-15% which could be developmental or related to an old fracture. I d o not see evidence of demyelinating disease in the cervical and thoracic spinal cord.
[2017-07-12] MEDS: HYDROmorphone 0.5 MG/0.5 ML SYRINGE IVP PRN ×2 (01:09→08:08)
[2017-07-12 07:02] LABS: Glucose,Whole Blood 166 mg/dL (75-99)
[2017-07-12 07:23] VITALS: RESP 18
[2017-07-12] MEDS: INSULIN LISPRO (humaLOG) 300 UNIT/3 ML VIAL SQ SCH ×3 (08:09→17:32)
[2017-07-12] MEDS: clonazePAM 0.5 MG TAB PO SCH ×2 (08:09→15:50)
[2017-07-12] MEDS: BACLOFEN 10 MG TAB PO SCH ×2 (08:09→15:50)
[2017-07-12] MEDS: methylPREDNISolone SOD SUCCI 250 MG in SODIUM CHLORIDE 0.9% 100 ML IVPB SCH ×2 (08:54→15:50)
[2017-07-12 12:12] LABS: Glucose,Whole Blood 164 mg/dL (75-99)
[2017-07-12] MEDS: HYDROcodone/APAP 5-325MG 1 EACH TAB PO PRN (13:38)
[2017-07-12 14:28] VITALS: BP 134/89; PULSE 86; TEMP 97.4
--- NOTE | 2017-07-12 15:38 | P.PN ---
Subjective Progress Note Date: 07/12/17 Progress Note being dictated for Interval history: This is a 31-year-old female admitted with acute MS exacerbation, history of seizure disorder and multiple other medical issues, evaluated by neurology with recommendations noted. Maintained on high-dose IV steroids with significant clinical improvement. Evaluated by physical therapy, patient declined walker at this time, potential subacute rehab. At discharge. No seizure activity reported. Denies chest pain, palpitation or increasing shortness of breath. Objective - Vital Signs Vital signs: Vital Signs Temp 97.4 F L 07/12/17 14:27 Pulse 86 07/12/17 14:27 Resp 18 07/12/17 14:27 BP 134/89 07/12/17 14:27 Pulse Ox 96 07/12/17 14:27 Intake & Output 07/11/17 07/12/17 07/12/17 18:59 06:59 18:59 Weight 50.349 kg Other: Voiding Method Toilet Toilet Bedside Commode Bedside Commode # Voids 2 2 2 - Exam PHYSICAL EXAM: VITAL SIGNS: As above GENERAL: Sitting up in bed, no acute distress HEENT: Conjunctivae normal. eyes normal. Oral mucosa moist NECK: No JVD. No thyroid enlargement. No LNs CARDIOVASCULAR: S1, S2 muffled. No murmur RESPIRATION: Breath sounds diminished in the bases. No rhonchi or crackles. No bronchial breathing. ABDOMEN: Soft, nontender . No guarding. no masses palpable.Bowel sounds heard. LEGS: No edema. no swelling PSYCHIATRY: Alert and oriented -3, mood and affect normal. NERVOUS SYSTEM: Cranial N 2-12 grossly normal. Moves all 4 limbs. Diffuse weakness.Decreased sensory in bilateral lower extremities, right upper extremity. Speech fluent and appropriate. Skin: no ulcer no rash Joints: No active swelling. No inflammation. Lymphatic system. No LN neck axilla or groin. - Labs CBC & Chem 7: 07/10/17 13:20 07/10/17 14:15 Labs: Abnormal Lab Results - Last 24 Hours (Table) 07/11/17 07/11/17 07/12/17 Range/Units 16:55 20:17 06:58 POC Glucose (mg/dL) 152 H 143 H 166 H (75-99) mg/dL 07/12/17 Range/Units 12:08 POC Glucose (mg/dL) 164 H (75-99) mg/dL Assessment and Plan Assessment: 1. Acute exacerbation of MS 2. History of seizure disorder 3. Chronic back pain, degenerative joint disease 4. Anxiety, depression Plan: Continue on current medication regime ,monitoring and symptomatic treatment. Maintain high dose IV steroids as per neurology. PT/OT. Maintain on baclofen for spasticity. Follow closely with neurology. Further recommendations to follow. The impression and plan of care has been dictated as directed. : I performed a history and examination of this patient, discussed the same with the dictator. I agree with the dictator's note ,documented as a scribe. Any additional findings or plans will be noted.
--- NOTE | 2017-07-12 16:02 | P.CN ---
Psychiatric Consult - . Consult date: 07/12/17 Consult:: Vital Signs: 3 Temp 97.4 F L 07/12/17 14:27 Pulse 86 07/12/17 14:27 Resp 18 07/12/17 14:27 BP 134/89 07/12/17 14:27 Pulse Ox 96 07/12/17 14:27 Labs: HPI: This is a 31-year-old female with a history of multiple sclerosis remitting in the late relapsing who follows up with Dr. Alcazar as an outpatient presents to the ED for which she believes is an MS exacerbation. The patient states that she has complete right-sided throbbing and numbness. She states that she also had an episode of difficulty with swallowing and choking and felt she was short of breath. She states that she is also been passing out multiple times which is new for her. Patient reports past treatment response for her MS with Betaseron and she is hopeful to restart such. She said about her to be more engaging with her family. Patient endorses full criteria for past and present major depressive episode. She has had multiple treatment failures with 4 different SSRIs. Most recently she was placed on level II to reports a better response but she developed what sounds to be akathisia making coping with her MS worse so she wants to change medications. Patient was screened for bipolar disorder and is able to clearly endorse past manic episode. Patient is able to describe in episodes that occurred as early as 13 or she had decreased need for sleep, lasted for at least a week sometimes up to 2 or 3. During these times she was erratic impulsive hyperactive more friendly and outgoing than usual. She reports being more talkative, socially engaging and getting herself into trouble. The frequency of these episodes have declined that she's aged. At this time patient denies SI or HI AVH. Past Medical History: Past Medical History: GERD/Reflux, GI Bleed, Hypertension Additional Past Medical History / Comment(s): Alcoholic gastritis; Alcohol withdrawal, 2015 upper GI bleed. lt hand cellulitis, polyneuropathy. History of Any Multi-Drug Resistant Organisms: None Reported Past Surgical History: No Surgical Hx Reported Additional Past Surgical History / Comment(s): Past surgical history documents that pt has never had any surgical procedures done. Past Anesthesia/Blood Transfusion Reactions: No Reported Reaction Additional Past Anesthesia/Blood Transfusion Reaction / Comment(s): Pt has never had surgery or blood transfusion per past medical records. Smoking Status: Current every day smoker Past Family History: Sister(s) Family Medical History: No Reported History Additional Family Medical History / Comment(s): PMH indicates patient has 3 sisters with no major medical problems. Son(s) Family Medical History: No Reported History Additional Family Medical History / Comment(s): PMH indicates that patient has one son with no major medical problems. Father Family Medical History: No Reported History Additional Family Medical History / Comment(s): Pt states father is alive and healthy. Mother Family Medical History: No Reported History Additional Family Medical History / Comment(s): Pt states mother is alive and healthy Past Psychiatric History: Denies any prior inpatient treatment and states that she was seen at [facility] in the past for 6 years and most recently was treated with Abilify 10 mg after her discharge here in February. Patient is also been on Effexor which she states she didn't like as well as Paxil, Celexa, and Lexapro in the past. Family History: Maternal history of alcohol use and she has a maternal aunt who has been diagnosed with bipolar disorder. Positive for a family history of suicidality. Social History: Born and raised in [place] and she states that she never knew her father as he left when she was a baby. Her mother at that time she states she viewed her stepfather as her father. They when she was 13 years of age and she moved out of the house at that time. She's has no siblings. Patient did graduate from home schooling and attended college for one year. 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 Patient has not recently been working. Patient has been one time is currently legally they've been together for 2 years. She has 4 children ages 14 and 12 from 1 partner and ages 9 and 6 from another partner all 4 children live with the patient. Patient states she applied for Social Security disability but was denied and is appealing that decision. She lives in a house that is owned by her mother's boyfriend. She states that her mother helps her financially. Legal History: Charged at the age of 15 with possession of marijuana Mental Status Exam: Appearance: alert, well groomed, appears stated age, Behavior: no psychomotor agitation+++, bilateral tremors Attitude: cooperative Speech: normal rate, rhythm, fluency, articulation, volume, and prosody; primary language: Congolese Mood: anxious Affect: congruent, reactive Thought processes: linear Thought content: patient does not appear to be responding to internal stimuli; patient denies auditory and visual hallucinations, no delusions appreciated Insight: fair Judgment: fair Cognitive: oriented to all 3 spheres, average intelligence Assessment: Bipolar 1 disorder, most recent episode depressed, severe without psychotic features PTSD, chronic Plan: There is no psychiatric contraindication for discharge, patient declined voluntary admission Start Latuda 40-mg PO with breakfast, given difficulties patient has acquiring behavioral health services she will require a 30 day supply at discharge #30 Continue Klonopin 0.-5mg PO TID for anxiety, mood stabilization, tremor, and insomnia given difficulties patient has acquiring behavioral health services she will require a 30 day supply at discharge #90 If there are any problems or concerns regarding such please feel free to page me ~ Misael Mcgregor DO [phone] (pager)
--- NOTE | 2017-07-12 17:09 | P.PN ---
Subjective Progress Note Date: 07/11/17 Progress Note being dictated for Interval history: This is a 31-year-old female admitted with acute MS exacerbation, history of seizure disorder and multiple other medical issues. evaluated by neurology with recommendations noted. High-dose IV steroids initiated. 07/11/17 . Evaluated by urology, slowly improving on high-dose IV steroids. No further seizure activity reported. Requiring assistance to ambulate to bathroom. Denies chest pain, palpitations or increasing shortness of breath. Objective - Vital Signs Vital signs: Vital Signs Temp 97.2 F L 07/11/17 07:00 Pulse 75 07/11/17 08:00 Resp 16 07/11/17 08:00 BP 135/83 07/11/17 07:00 Pulse Ox 97 07/11/17 07:00 Intake & Output 07/10/17 07/11/17 07/11/17 18:59 06:59 18:59 Weight 50.349 kg Other: Voiding Method Toilet Toilet Bedside Commode Bedside Commode # Voids 1 5 1 - Exam PHYSICAL EXAM: VITAL SIGNS: As above GENERAL: Sitting up in bed, no acute distress HEENT: Conjunctivae normal. eyes normal. Oral mucosa moist NECK: No JVD. No thyroid enlargement. No LNs CARDIOVASCULAR: S1, S2 muffled. No murmur RESPIRATION: Breath sounds diminished in the bases. No rhonchi or crackles. No bronchial breathing. ABDOMEN: Soft, nontender . No guarding. no masses palpable.Bowel sounds heard. LEGS: No edema. no swelling PSYCHIATRY: Alert and oriented -3, mood and affect normal. NERVOUS SYSTEM: Cranial N 2-12 grossly normal. Moves all 4 limbs. Diffuse weakness.Decreased sensory in bilateral lower extremities, right upper extremity. Speech fluent and appropriate. Skin: no ulcer no rash Joints: No active swelling. No inflammation. Lymphatic system. No LN neck axilla or groin. - Labs CBC & Chem 7: 07/10/17 13:20 07/10/17 14:15 Labs: Abnormal Lab Results - Last 24 Hours (Table) 07/10/17 07/10/17 07/10/17 Range/Units 13:55 14:15 16:52 Chloride 111 H (98-107) mmol/L POC Glucose (mg/dL) 101 H (75-99) mg/dL Calcium 8.0 L (8.4-10.2) mg/dL Urine Blood Moderate H (Negative) Urine Bacteria Rare H (None) /hpf 07/10/17 07/11/17 07/11/17 Range/Units 20:29 07:17 12:22 Chloride (98-107) mmol/L POC Glucose (mg/dL) 128 H 154 H 165 H (75-99) mg/dL Calcium (8.4-10.2) mg/dL Urine Blood (Negative) Urine Bacteria (None) /hpf Assessment and Plan Assessment: 1. Acute exacerbation of MS 2. History of seizure disorder 3. Chronic back pain, degenerative joint disease 4. Anxiety, depression Plan: Continue on current medication regime ,monitoring and symptomatic treatment. Maintain high dose IV steroids as per neurology. PT/OT. Follow closely with neurology. Further recommendations to follow. The impression and plan of care has been dictated as directed. : I performed a history and examination of this patient, discussed the same with the dictator. I agree with the dictator's note ,documented as a scribe. Any additional findings or plans will be noted.
[2017-07-12 17:11] LABS: Glucose,Whole Blood 125 mg/dL (75-99)
--- NOTE | 2017-07-12 17:43 | P.PN ---
Subjective Progress Note Date: 07/12/17 Patient is a pleasant 31-year-old female who is being followed by the neurology service for generalized weakness. Patient does state she has a history of MS but has not been taking her MS medication for the last year. Patient reports she was on Betaseron in the past. Patient states her neurologist moved out of town and she has not followed up with anyone new. Patient states she has an appointment to be seen in our office within the next month. Patient does have family history of multiple sclerosis. Patient came to [facility] with complaints of generalized muscle aches and weakness. She states her lower extremities are weaker than the upper extremities. She reports muscle spasms mostly in the lower extremities. Patient also complains of blurred vision in her right eye. Her MRI showed nonspecific white matter changes but no abnormal enhancement was seen. She is awaiting an MRI of the cervical and thoracic spine to be done later today. Patient reports she feels she is minimally better since starting the steroid treatment. Patient and staff reports she is having episodes of anxiety. She has IV Ativan 0.5 mg when necessary. At the time of my evaluation, patient's resting comfortably in bed and appears to be in no acute distress. 07/12/2017 Patient is a pleasant 31-year-old female who is being followed by the neurology service for generalized weakness. Patient is much improved today. Patient reports weakness is much improved. Patient is ambulating well without assist. Patient denies sensory deficit. Patient is tearful stating she must go home due to family emergency. Patient was seen by psychiatry today and placed on Latuda. Patient had MRI of the cervical and thoracic spine which did not show evidence for lesions on the cervical or thoracic spinal cord. Patient states vision has pretty much cleared with the steroids. At the time of my evaluation she is resting comfortably in bed and appears to be in no acute distress. Objective - Vital Signs Vital signs: Vital Signs Temp 97.4 F L 07/12/17 14:27 Pulse 86 07/12/17 14:27 Resp 18 07/12/17 14:27 BP 134/89 07/12/17 14:27 Pulse Ox 96 07/12/17 14:27 Intake & Output 07/11/17 07/12/17 07/12/17 18:59 06:59 18:59 Weight 50.349 kg Other: Voiding Method Toilet Toilet Bedside Commode Bedside Commode # Voids 2 2 2 - Exam PHYSICAL EXAM: GENERAL APPEARANCE: Patient is a well-developed, female who appears to be in no acute distress. HEENT: Normocephalic, atraumatic, no facial asymmetry is seen. Neck is supple with no masses felt. CARDIOVASCULAR: Regular rate and rhythm. ABDOMEN: Nontender, nondistended. EXTREMITIES: Show no edema or clubbing. NEUROLOGICAL EXAM: Patient is awake, alert, and oriented 3. Speech and language are normal. Sensory exam is normal to light touch in all 4 extremities. Strength is full in all 4 extremities. No facial asymmetry is seen on cranial nerve testing.No tremors or seizure-like activity is noted. - Labs CBC & Chem 7: 07/10/17 13:20 07/10/17 14:15 Labs: Abnormal Lab Results - Last 24 Hours (Table) 07/11/17 07/12/17 07/12/17 Range/Units 20:17 06:58 12:08 POC Glucose (mg/dL) 143 H 166 H 164 H (75-99) mg/dL 07/12/17 Range/Units 17:05 POC Glucose (mg/dL) 125 H (75-99) mg/dL Assessment and Plan Plan: Impression: 1. Generalized weakness 2. Sensory deficit 3. Spasticity 4. Visual changes 5. Hypocalcemia 6. Nonspecific white matter changes on MRI of the brain Recommendation: Patient's symptoms are concerning for demyelinating disease, although her MRI of the brain showed no abnormal enhancement to explain her current symptoms. Her MRI of the cervical and thoracic spine were negative for any spinal cord lesions. She is currently receiving IV Solu-Medrol 250 mg every 8 hours which she states has significantly improved her symptoms. Physical therapy is on consult. Her spasticity of the lower extremities has significantly improved. I recommend she be discharged on baclofen 10 mg twice a day when necessary. Patient has history of anxiety and reports being on multiple different medications for her anxiety. As mentioned above, patient has been evaluated by psychiatry and placed on medication. Patient will need further outpatient workup to confirm multiple sclerosis and to be started on disease modifying therapy if needed. Continue neurological checks. Patient is stable from a neurological standpoint for discharge. I will continue to follow with you on an as-needed basis. Feel free to call with any questions or concerns. I performed an examination of the patient and discussed the management with the DUMP MOTORMAN. I have reviewed the DUMP MOTORMAN notes and agree with the findings and plan of care.
[2017-07-13] MEDS ORDERED: LURASIDONE 40 MG TAB PO SCH (07:30)
--- NOTE | 2017-07-13 10:07 | P.DS ---
Providers Date of admission: 07/11/17 15:59 Expected date of discharge: 07/12/17 Attending physician: Cinthya Spencer Consults: 07/10/17 15:17 Consult Physician Routine Consulting Provider: Gus Alcazar Consult Reason/Comments: MS exacerbation Do you want consulting provider notified?: Yes 07/11/17 13:29 Consult Physician Routine Consulting Provider: Misael Mcgregor Consult Reason/Comments: anxiety, panic attacks, MS related? Do you want consulting provider notified?: Yes Primary care physician: Evangelist Anne [facility] Course: Final Diagnoses: 1. Acute exacerbation of MS 2. History of seizure disorder 3. Chronic back pain, degenerative joint disease 4. Anxiety, depression Hospital course:This is a 31-year-old female admitted with acute MS exacerbation , history of seizure disorder and multiple other medical issues, evaluated by neurology and psychiatry. Maintained on high-dose IV steroids, Klonopin resumed , Latuda added to med regime. Significant clinical improvement. Evaluated by physical therapy. Declined a walker, declining subacute rehab. No seizure activity reported. Cleared by consults for discharge. Patient is being discharged home in a stable condition with guarded prognosis. The impression and plan of care has been dictated as directed. : I performed a history and examination of this patient, discussed the same with the dictator. I agree with the dictator's note ,documented as a scribe. Any additional findings or plans will be noted. Patient Condition at Discharge: Stable Plan - Discharge Summary Discharge Rx Participant: Yes New Discharge Prescriptions: New Baclofen [Lioresal] 10 mg PO TID PRN #20 tablet PRN Reason: Spasms Acetaminophen Tab [Tylenol Tab] 650 mg PO Q6H PRN #1 tablet PRN Reason: Pain Lurasidone [Latuda] 40 mg PO AC-BRKFST #30 tablet Continue clonazePAM [KlonoPIN] 0.5 mg PO TID #21 tab Discharge Medication List Acetaminophen Tab [Tylenol Tab] 650 mg PO Q6H PRN #1 tablet 07/12/17 [Rx] Baclofen [Lioresal] 10 mg PO TID PRN #20 tablet 07/12/17 [Rx] Lurasidone [Latuda] 40 mg PO AC-BRKFST #30 tablet 07/12/17 [Rx] clonazePAM [KlonoPIN] 0.5 mg PO TID #21 tab 07/12/17 [Rx] Follow up Appointment(s)/Referral(s): [facility], Psychiatry [Other] - 1 Week Gus Alcazar MD [STAFF PHYSICIAN] - 2 Weeks Evangelist Anne DO [Primary Care Provider] - 1 Week Patient Instructions/Handouts: Multiple Sclerosis (DC) Discharge Disposition: HOME SELF-CARE
== END 2017-07-12 18:38 | disposition home or self-care (01) | DRG 43 ==
LOC: EC 13:13 → 4MS4W 15:16 → OBSVTOIN 07-11 15:59
PROVIDERS: ADMIT Hospitalist; ATTEND Hospitalist
DX: G35 Multiple sclerosis (principal); F31.4 Bipolar disorder, current episode depressed, severe, without psychotic features; E83.51 Hypocalcemia; M41.9 Scoliosis, unspecified; G89.29 Other chronic pain; H53.8 Other visual disturbances; F43.10 Post-traumatic stress disorder, unspecified; G40.909 Epilepsy, unspecified, not intractable, without status epilepticus; M19.91 Primary osteoarthritis, unspecified site; Z79.899 Other long term (current) drug therapy; Z98.51 Tubal ligation status; Z90.49 Acquired absence of other specified parts of digestive tract; Z82.0 Family history of epilepsy and other diseases of the nervous system
CPT/HCPCS: 36415; 70553; 71020; 72141; 72146; 80053; 81001; 81025; 83036; 83690; 83735; 85025; 93005; 96361; 96374; 99285

== ENCOUNTER 2017-08-06 09:26 | Day surgery (SDC) | payer OTHER ==
[2017-07-31 11:55] VITALS: BMI 21.7
[~2017-08-06 09:26] MED LIST: LACTATED RINGERS 1,000 ML IV SCH
[2017-08-06] MEDS ORDERED: LIDOCAINE 1% 20 ML VIAL (10MG/ML) FOR IV START INTRADERMA ONE (10:15)
[2017-08-06 10:36] VITALS: TEMP 98.4
[2017-08-06] MEDS ORDERED: PROPOFOL 10 MG/ML 20 ML VIAL IV ONE (10:43)
--- NOTE | 2017-08-06 11:16 | P.PCN ---
Date of Procedure: 08/06/17 Procedure(s) Performed: Procedure: Esophagogastroduodenoscopy and biopsy. Preoperative diagnosis: Dysphagia. Postoperative diagnosis: 1. Small sliding hiatal hernia with no obvious esophagitis or complicated reflux disease. 2. Mild antral gastritis and duodenitis. 3. Multiple biopsies obtained from the duodenum, antrum and esophagus. Preparation and sedation: Was provided by anesthesia. Brief clinical history: The patient is a 31-year-old female with history of multiple sclerosis who has been troubled with dysphagia for the last 7-8 months. This is happening with both liquids and solids. No bleeding or other alarm symptoms. She did lose weight initially but at this time there is no further weight loss. Procedure: With the patient on her left lateral decubitus position and after informed consent and adequate sedation, I passed the Olympus-GIF 160 video upper endoscope through the cricopharyngeus down the esophagus. GE junction was at 39 cm from the incisors and there was a very small sliding hiatal hernia. The esophagus did not show any obvious esophagitis or complicated reflux disease. The endoscope was then passed into the stomach which was insufflated with air and inspected in detail including the retroflex view in the cardia. There was some mottling and erythema in the antrum but no ulcers or erosions. Pyloric channel, duodenal bulb, post bulbar area and descending duodenum appeared within normal limits with minimal erythema in the bulb. Because of her symptoms, I obtained biopsies from the duodenum, antrum and esophagus then the endoscope was withdrawn. The patient tolerated the procedure well. Plan: The patient was reassured. Will await biopsy results. Further plans can be made based on her course and biopsy results. Consideration can be given for a motility study and other workup, especially if there is nutritional compromise in the future. She will follow-up with you as planned.
[2017-08-06 11:18] VITALS: PULSE 92; RESP 16
[2017-08-06 11:26] VITALS: BP 134/80
== END 2017-08-06 11:53 | disposition home or self-care (01) ==
LOC: ORWHC2ENDO 09:26
DX: K29.50 Unspecified chronic gastritis without bleeding (principal); K21.0 Gastro-esophageal reflux disease with esophagitis; K29.80 Duodenitis without bleeding; K44.9 Diaphragmatic hernia without obstruction or gangrene; G35 Multiple sclerosis; M41.9 Scoliosis, unspecified; Z79.899 Other long term (current) drug therapy
CPT/HCPCS: 43239; 81025; J2704; 88305; 88342

== ENCOUNTER 2017-10-17 01:18 | Observation (INO) | payer OTHER ==
[2017-10-17] MEDS ORDERED: SODIUM CHLORIDE 0.9% 1,000 ML IV STA (01:43)
[2017-10-17] MEDS ORDERED: methylPREDNISolone SOD SUCCI 125 MG/2 ML VIAL IV STA (01:43)
[2017-10-17] MEDS ORDERED: ONDANSETRON 4 MG/2 ML VIAL IVP PRN (01:46)
[2017-10-17] MEDS ORDERED: NALOXONE 0.4 MG/ML 1 ML VIAL IV PRN (01:46)
--- NOTE | 2017-10-17 01:46 | ED ---
General Adult HPI - General Chief complaint: Recheck/Abnormal Lab/Rx Stated complaint: MS Exacerbation Time Seen by Provider: 10/17/17 01:30 Source: patient, family, RN notes reviewed Mode of arrival: wheelchair Limitations: no limitations - History of Present Illness Initial comments: 31-year-old female presents to the emergency department with a chief complaint of MS exacerbation. Patient has been to multiple neurologists she's had multiple exacerbations. She states it's been about 2 months since her last exacerbation. Patient was relaxed 2 weeks she's noticed some increased weakness. Patient states that she has had some issues with bladder control. She states she just generally size week and generalized pain. She denies any fever chills with this. She denies any cough cold runny nose. They were concerned due to the patient's continued symptoms so they thought that they should be evaluated. Patient denies any recent fever, chills, shortness of breath, chest pain, back pain, abdominal pain, nausea vomiting, dysuria or hematuria, constipation or diarrhea, headaches or visual changes, or any other current symptoms. - Related Data Home Medications Medication Instructions Recorded Confirmed Omeprazole 20 mg PO QAM 07/31/17 10/17/17 Previous Rx's Medication Instructions Recorded Baclofen [Lioresal] 10 mg PO TID PRN #20 tablet 07/12/17 Lurasidone [Latuda] 40 mg PO AC-BRKFST #30 tablet 07/12/17 clonazePAM [KlonoPIN] 0.5 mg PO TID #21 tab 07/12/17 Allergies Allergy/AdvReac Type Severity Reaction Status Date / Time No Known Allergies Allergy Verified 07/31/17 11:46 Review of Systems ROS Statement: Those systems with pertinent positive or pertinent negative responses have been documented in the HPI. ROS Other: All systems not noted in ROS Statement are negative. Past Medical History Past Medical History: GERD/Reflux, Neurologic Disorder, Seizure Disorder Additional Past Medical History / Comment(s): multiple sclerosis, daily migraines, last seizure 1 yr ago, scoliosis,, neuropathy, choking easily, has episodes where looses vision for period of up to 48 hrs-cause unknown History of Any Multi-Drug Resistant Organisms: None Reported Past Surgical History: Appendectomy, Section, Tubal Ligation Additional Past Surgical History / Comment(s): D&C, CORRECTIVE EYE SURGERY Past Anesthesia/Blood Transfusion Reactions: Motion Sickness Additional Past Anesthesia/Blood Transfusion Reaction / Comment(s): "SPINAL WAS DIFFICULT D/T SCOLIOSIS" Past Psychological History: Anxiety, Bipolar, Depression, PTSD Smoking Status: Never smoker Past Alcohol Use History: Occasional Past Drug Use History: None Reported - Past Family History Father Family Medical History: Unable to Obtain Additional Family Medical History / Comment(s): does'nt know Mother Family Medical History: No Reported History Additional Family Medical History / Comment(s): . General Exam Limitations: no limitations General appearance: alert, in no apparent distress ENT exam: Present: normal exam, mucous membranes moist Neck exam: Present: normal inspection. Absent: tenderness, meningismus, lymphadenopathy Respiratory exam: Present: normal lung sounds bilaterally. Absent: respiratory distress, wheezes, rales, rhonchi, stridor Cardiovascular Exam: Present: regular rate, normal rhythm, normal heart sounds. Absent: systolic murmur, diastolic murmur, rubs, gallop, clicks GI/Abdominal exam: Present: soft, normal bowel sounds. Absent: distended, tenderness, guarding, rebound, rigid Neurological exam: Present: alert, oriented X3, other (Generalized weakness) Psychiatric exam: Present: normal affect, normal mood Skin exam: Present: warm, dry, intact, normal color. Absent: rash Course Vital Signs 10/17/17 01:23 Temperature 97.9 F Pulse Rate 20 L Respiratory 110 H Rate O2 Sat by Pulse 95 Oximetry Medical Decision Making - Medical Decision Making 31-year-old female presents for generalized weakness. This time there is concern for MS exacerbation. We will patient of Dr. Marks and Call Neurology Dr. Shepard. We Did Discuss We Will Give Her Dose of Steroids Here. We Will Refer Her to Neurology for Additional Steroid Dosing. Patient Is in Agreement This Plan. Disposition Clinical Impression: Exacerbation of multiple sclerosis Disposition: ADMITTED IP TO THIS [facility] Condition: Stable Referrals: Evangelist Anne DO [Primary Care Provider] - 1-2 days Decision Date: 10/17/17 Decision Time: 01:45
[2017-10-17] MEDS: SODIUM CHLORIDE 0.9% 1,000 ML IV SCH ×2 (01:57→11:11)
[2017-10-17 02:31] LABS: ALT 22 U/L (9-52); AST 21 U/L (14-36); Albumin 4.4 g/dL (3.5-5.0); Alkaline Phosphatase 72 U/L (38-126); Anion Gap 13 mmol/L; Blood Urea Nitrogen 13 mg/dL (7-17); Calcium 9.3 mg/dL (8.4-10.2); Carbon Dioxide 23 mmol/L (22-30); Chloride 107 mmol/L (98-107); Glucose 87 mg/dL (74-99); Potassium 4.3 mmol/L (3.5-5.1); Sodium 143 mmol/L (137-145); Total Bilirubin 0.3 mg/dL (0.2-1.3)
[2017-10-17 02:36] LABS: Basophils % (A) 0 %; Eosinophils # (A) 0.1 k/uL (0-0.7); Eosinophils % (A) 1 %; HCT 39.6 % (34.0-46.0); HGB 12.9 gm/dL (11.4-16.0); Lymphocytes # (A) 1.6 k/uL (1.0-4.8); Lymphocytes % (A) 22 %; MCH 28.2 pg (25.0-35.0); MCHC 32.4 g/dL (31.0-37.0); Mean Platelet Volume 7.3; Monocytes # (A) 0.4 k/uL (0-1.0); Monocytes % (A) 6 %; Neutrophils # (A) 4.8 k/uL (1.3-7.7); Neutrophils % (A) 68 %; Platelet Count 207 k/uL (150-450); RBC 4.56 m/uL (3.80-5.40); RDW 12.8 % (11.5-15.5); WBC 7.1 k/uL (3.8-10.6)
[2017-10-17 03:55] LABS: Appearance,Urine Clear (Clear); Bilirubin,Urine Negative (Negative); Blood,Urine Negative (Negative); Color,Urine Light Yellow; Glucose,Urine (UA) Negative (Negative); Ketones,Urine Trace (Negative); Leukocyte Esterase,Urine Negative (Negative); Nitrite,Urine Negative (Negative); PH, Urine 6.5 (5.0-8.0); Protein,Urine Negative (Negative); Urobilinogen,Urine <2.0 mg/dL (<2.0)
[2017-10-17] MEDS: HYDROcodone/APAP 5-325MG 1 EACH TAB PO PRN ×3 (04:01→17:55)
[2017-10-17 08:13] VITALS: RESP 16
[2017-10-17 08:14] VITALS: BMI 20.9
[2017-10-17] MEDS ORDERED: methylPREDNISolone SOD SUCCI 125 MG/2 ML VIAL IV SCH (10:15)
[2017-10-17] MEDS ORDERED: BACLOFEN 10 MG TAB PO PRN (10:16)
[2017-10-17] MEDS ORDERED: HYDROmorphone 4 MG/ML 1 ML SYRINGE IVP PRN (10:17)
[2017-10-17] MEDS ORDERED: TEMAZEPAM 15 MG CAP PO PRN (10:18)
[2017-10-17] MEDS: HEPARIN SODIUM,PORCINE 5,000 UNIT/ML 1 ML VIAL SQ SCH ×2 (10:59→21:33)
[2017-10-17] MEDS: methylPREDNISolone SOD SUCCI 250 MG in SODIUM CHLORIDE 0.9% 100 ML IVPB SCH ×2 (11:11→22:01)
[2017-10-17 11:53] LABS: Glucose,Whole Blood 142 mg/dL (75-99)
[2017-10-17] MEDS: INSULIN ASPART 100 UNIT/ML 1 ML 10 ML VIAL SQ SCH ×3 (12:22→21:34)
[2017-10-17] MEDS: PANTOPRAZOLE 40 MG TABLET PO SCH (12:22)
[2017-10-17] MEDS: DULoxetine HCL 30 MG CAPSULE.DR PO SCH (12:22)
[2017-10-17] MEDS: LURASIDONE 40 MG TAB PO SCH (12:22)
--- NOTE | 2017-10-17 14:37 | FL ---
EXAMINATION TYPE: FL barium swallow w video DATE OF EXAM: 10/17/2017 COMPARISON: NONE HISTORY: Dysphasia TECHNIQUE: Fluoroscopy. FINDINGS: Fluoroscopic guidance was provided for the procedure performed in conjunction with [place] [facility] [place] [facility] [place]. Please see complete report forthcoming from the Speech Pathology departmen t. Various consistencies from thin liquid to solids were administered. Thin barium and pudding thick consistency were administered for this exam. Fluoroscopy time 46 seconds Number of images: 0. No aspiration or penetration was evident. No significant pooling was observed in the vallecula. There is some hesitancy of swallowing. During the examination patient had episodes of dry gagging without vomiting. A lateral esophagus demo nstrates pudding thick consistency extending from the hypopharynx to the stomach without obstruction. IMPRESSION: 1. No aspiration or penetration.
--- NOTE | 2017-10-17 15:33 | HP ---
HISTORY AND PHYSICAL CHIEF COMPLAINT: Generalized weakness and increasing weakness as well as visual difficulty. HISTORY OF PRESENT ILLNESS: This 31-year-old woman with a past history of multiple sclerosis, history of GERD, history of seizure disorder, history of daily migraines, history of anxiety, bipolar, depression, PTSD being followed by Dr. Anne in the outpatient setting, was complaining of increasing weakness and the patient had difficulty walking. Patient also had difficulty in vision with blurring of vision. The patient came to [facility] and multiple sclerosis exacerbation was also considered. The patient also has loss of bladder control. There is no history of fever, rigors, headache, loss of consciousness. The patient has multiple neurologists in the past. PAST MEDICAL HISTORY: History of multiple sclerosis, history of GERD, seizure disorder, history of scoliosis, history of neuropathy, history of anxiety, bipolar, depression, PTSD. MEDICATIONS: Prior to admission include home medications are: 1. Depakote 500 mg p.o. t.i.d. 2. Cymbalta 30-60 mg q.a.m. 3. Klonopin 0.5 mg t.i.d. 4. Lioresal 20 mg t.i.d. ALLERGIES: Allergies are none. FAMILY HISTORY: No history of heart disease or strokes in the family. SOCIAL HISTORY: No history of smoking, no history of alcohol. REVIEW OF SYSTEMS: ENT: No diminished hearing or vision. CARDIOVASCULAR: No angina. PULMONARY: No cough. GI: No nausea. : No dysuria. NERVOUS SYSTEM: No numbness or weakness. ALLERGY/IMMUNOLOGY: No history of asthma. MUSCULOSKELETAL: As mentioned earlier. HEMATOLOGY: No history of anemia. ENDOCRINE: No history of diabetes or hypothyroidism. CONSTITUTIONAL: As mentioned. DERMATOLOGY: Negative. RHEUMATOLOGY: Negative. PSYCHIATRY: As mentioned earlier. PHYSICAL EXAMINATION: Pulse 89, blood pressure 100/60, respirations 16, temperature 97.9, pulse ox 98 % on room air. HEENT: Conjunctivae normal. NECK: No jugular venous distention. CARDIOVASCULAR: S1, S2 muffled. RESPIRATORY: Breath sounds diminished in the bases. Scattered rhonchi and crackles. Expiratory wheezing also present. ABDOMEN: Soft, nontender. No mass palpable. LEGS: No edema, no swelling. NERVOUS SYSTEM: Higher functions as mentioned earlier. Otherwise the patient has minimal visual blurring, otherwise diffuse weakness and some contractures also in the both lower limbs. Gait cannot be tested and diffuse tremors present. Tone is also increased. SKIN: No ulcer, rash or bleeding. LYMPHATIC: No lymphadenopathy in the neck, axillae, groin. JOINTS: No active deforming arthropathy. LABS: CBC within normal limits. CMP noted and glucose 142. ASSESSMENT: 1. Generalized weakness and tiredness and visual blurring with possibly multiple sclerosis acute exacerbation. 2. History of gastroesophageal reflux disease. 3. History of seizure disorder. 4. History of migraine. 5. History of scoliosis. 6. History of peripheral neuropathy. 7. History of appendectomy. 8. History of motion sickness. 9. History of anxiety, bipolar, depression, posttraumatic stress disorder. RECOMMENDATIONS AND DISCUSSION: In this 31-year-old woman who presented with multiple complex medical issues, will monitor the patient closely. Continue the current management and symptomatic treatment. Otherwise at this time I recommend to continue high-dose IV steroids. Monitor blood sugars closely. Neurology evaluation. Neuro checks. PT, OT evaluation, possible ECF rehab. The patient is extremely weak. Otherwise, DVT prophylaxis. Symptomatic treatment. A proton pump inhibitors. Prognosis guarded because of multiple complex medical issues. Discussed with the patient who understands. MMODL / IJN: [id number] / ANTHONY
[2017-10-17] MEDS: clonazePAM 0.5 MG TAB PO SCH ×2 (17:12→21:33)
[2017-10-17] MEDS: DIVALPROEX 500 MG TABLET.DR PO SCH ×2 (17:12→21:33)
[2017-10-17 17:30] LABS: Glucose,Whole Blood 195 mg/dL (75-99)
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
[2017-10-17] MEDS ORDERED: HYDROmorphone 0.5 MG/0.5 ML SYRINGE IVP PRN (20:42)
[2017-10-17 20:50] LABS: Glucose,Whole Blood 178 mg/dL (75-99)
[2017-10-18] MEDS: HYDROcodone/APAP 5-325MG 1 EACH TAB PO PRN (05:03)
[2017-10-18 07:29] LABS: Glucose,Whole Blood 150 mg/dL (75-99)
[2017-10-18] MEDS: LURASIDONE 40 MG TAB PO SCH (07:45)
[2017-10-18] MEDS: INSULIN ASPART 100 UNIT/ML 1 ML 10 ML VIAL SQ SCH ×2 (07:45→14:42)
[2017-10-18] MEDS: PANTOPRAZOLE 40 MG TABLET PO SCH (07:45)
[2017-10-18] MEDS: methylPREDNISolone SOD SUCCI 250 MG in SODIUM CHLORIDE 0.9% 100 ML IVPB SCH (07:46)
[2017-10-18] MEDS: DIVALPROEX 500 MG TABLET.DR PO SCH (07:46)
[2017-10-18] MEDS: HEPARIN SODIUM,PORCINE 5,000 UNIT/ML 1 ML VIAL SQ SCH (07:46)
[2017-10-18] MEDS: DULoxetine HCL 30 MG CAPSULE.DR PO SCH (07:46)
[2017-10-18 07:47] VITALS: BP 118/64; PULSE 72; TEMP 97.8
[2017-10-18 07:48] LABS: Basophils % (A) 0 %; Eosinophils % (A) 0 %; HCT 36.5 % (34.0-46.0); HGB 11.3 gm/dL (11.4-16.0); Lymphocytes # (A) 0.9 k/uL (1.0-4.8); Lymphocytes % (A) 9 %; MCH 27.5 pg (25.0-35.0); Mean Platelet Volume 8.2; Monocytes # (A) 0.3 k/uL (0-1.0); Monocytes % (A) 2 %; Neutrophils % (A) 89 %; Platelet Count 187 k/uL (150-450); RBC 4.11 m/uL (3.80-5.40); RDW 12.6 % (11.5-15.5); WBC 10.1 k/uL (3.8-10.6)
[2017-10-18 08:10] LABS: Anion Gap 10 mmol/L; Blood Urea Nitrogen 10 mg/dL (7-17); Calcium 8.9 mg/dL (8.4-10.2); Carbon Dioxide 23 mmol/L (22-30); Chloride 105 mmol/L (98-107); Glucose 144 mg/dL (74-99); Potassium 4.4 mmol/L (3.5-5.1); Sodium 138 mmol/L (137-145)
[2017-10-18 08:15] LABS: Valproic Acid (Depakene) 61.4 ug/mL
[2017-10-18] MEDS: clonazePAM 0.5 MG TAB PO SCH (09:17)
[2017-10-18] MEDS: SODIUM CHLORIDE 0.9% 1,000 ML IV SCH (11:10)
--- NOTE | 2017-10-18 19:40 | DS ---
DISCHARGE SUMMARY DATE OF SERVICE: 10/18/2017. FINAL DIAGNOSES: 1. Generalized weakness and tiredness, visual blurring with possibly multiple sclerosis acute exacerbation. 2. Possible acute seizure disorder. 3. History of gastroesophageal reflux disease. 4. History of seizure disorder. 5. History of migraines. 6. History of scoliosis. 7. History of peripheral neuropathy. 8. Appendectomy. 9. History of motion sickness. 10.History of anxiety, bipolar depression, posttraumatic stress disorder. DISCHARGE DISPOSITION: The patient will be discharged in stable condition with guarded prognosis. Discharge cleared by Neurology. HISTORY OF PRESENT ILLNESS: This 31-year-old woman with a past medical history of multiple medical problems being followed by Dr. Anne in the outpatient setting. The patient is admitted with multiple sclerosis acute exacerbation, treated symptomatically. IV steroids were given. Patient improved significantly. Patient is keen on going home at this time. Neurology also cleared the patient for discharge. The patient will be discharged in They also advised to continue the medications and no driving for 6 months per [place] Law. The patient is being discharged in stable condition with guarded prognosis. 1. Diet is cardiac. 2. Activity is limited until followup. 3. Follow up with Dr. Anne in 2-3 days. 4. Follow with Dr. Shepard and Urology, and Psychiatry as advised. MEDICATIONS: 1. Baclofen 20 mg t.i.d. p.r.n. 2. Klonopin 0.5 mg t.i.d. p.r.n. 3. Depakote 500 mg t.i.d. 4. Cymbalta 30 mg q.a.m. 5. Latuda 40 mg p.o. t.i.d. 6. Medrol Dosepak as directed. MMODL / IJN: [id number] / MTDD
== END 2017-10-18 15:52 | disposition home or self-care (01) ==
LOC: EC 01:18 → INTOOBSV 01:46 → 5MS5E 01:46
PROVIDERS: ADMIT Internal Medicine; ATTEND Internal Medicine
DX: R53.1 Weakness (principal); H53.8 Other visual disturbances; R53.83 Other fatigue; R32 Unspecified urinary incontinence; G35 Multiple sclerosis; G40.909 Epilepsy, unspecified, not intractable, without status epilepticus; G43.909 Migraine, unspecified, not intractable, without status migrainosus; M41.9 Scoliosis, unspecified; K21.9 Gastro-esophageal reflux disease without esophagitis; F43.10 Post-traumatic stress disorder, unspecified; F31.9 Bipolar disorder, unspecified; G62.9 Polyneuropathy, unspecified; F41.9 Anxiety disorder, unspecified; R13.10 Dysphagia, unspecified; Z91.14 Patient's other noncompliance with medication regimen; Z91.89 Other specified personal risk factors, not elsewhere classified; Z79.899 Other long term (current) drug therapy
CPT/HCPCS: 99284 ×2; 96376 ×3; 96361 ×2; 96365; 96366; 96372 ×2; 96375; 36415; 97116; 97162; 97167; 92610; 92611; 80164; 80053; 80048; 85025 ×2; 81003; 81025; 83036; 74230; G0378 ×3; J1644 ×2; J2930 ×2; J1170 ×2

== ENCOUNTER 2017-11-21 11:15 | Emergency (ER) | payer OTHER ==
[2017-11-21 13:34] LABS: HCT 38.7 % (34.0-46.0); HGB 12.4 gm/dL (11.4-16.0); MCH 27.4 pg (25.0-35.0); MCV 85.8 fL (80.0-100.0); Platelet Count 210 k/uL (150-450); RDW 13.2 % (11.5-15.5); WBC 6.2 k/uL (3.8-10.6)
[2017-11-21 13:44] LABS: ALT 25 U/L (9-52); AST 17 U/L (14-36); Albumin 4.2 g/dL (3.5-5.0); Alkaline Phosphatase 69 U/L (38-126); Anion Gap 10 mmol/L; Blood Urea Nitrogen 12 mg/dL (7-17); Calcium 9.1 mg/dL (8.4-10.2); Carbon Dioxide 26 mmol/L (22-30); Chloride 104 mmol/L (98-107); Glucose 96 mg/dL (74-99); Potassium 4.3 mmol/L (3.5-5.1); Sodium 140 mmol/L (137-145); Total Bilirubin 0.4 mg/dL (0.2-1.3); Total Protein 6.7 g/dL (6.3-8.2)
[2017-11-21 13:48] LABS: Appearance,Urine Clear (Clear); Bilirubin,Urine Negative (Negative); Blood,Urine Trace (Negative); Color,Urine Light Yellow; Glucose,Urine (UA) Negative (Negative); Ketones,Urine Negative (Negative); Leukocyte Esterase,Urine Negative (Negative); Mucus,Urine Rare /hpf; Nitrite,Urine Negative (Negative); Protein,Urine Negative (Negative); RBC,Urine <1 /hpf (0-5); Squamous Epithelial Cell,Urine <1 /hpf (0-4); Urobilinogen,Urine <2.0 mg/dL (<2.0); WBC,Urine 1 /hpf (0-5)
--- NOTE | 2017-11-21 13:50 | ED ---
General Adult HPI - General Chief complaint: Headache Stated complaint: MS flare up, chest pain, dizziness, skin burning Time Seen by Provider: 11/21/17 12:00 Source: patient, RN notes reviewed Mode of arrival: ambulatory Limitations: no limitations - History of Present Illness Initial comments: This is a 32-year-old female presents emergency Department complaining of vaginal bleeding with some lower abdominal pain she also complains of being mildly dizzy. Patient states he symptoms started months ago but they've gotten worse over the last week. Patient states she has some painful sexual intercourse and the bleeding with sexual intercourse seems to be getting heavier. - Related Data Home Medications Medication Instructions Recorded Confirmed Baclofen [Lioresal] 20 mg PO TID PRN 10/17/17 11/21/17 Divalproex Sodium [Depakote] 500 mg PO TID 10/17/17 11/21/17 clonazePAM [KlonoPIN] 0.5 mg PO TID PRN 11/21/17 11/21/17 Previous Rx's Medication Instructions Recorded Lurasidone [Latuda] 40 mg PO AC-BRKFST #30 tablet 07/12/17 DULoxetine HCL [Cymbalta] 30 mg PO QAM #0 10/18/17 Allergies Allergy/AdvReac Type Severity Reaction Status Date / Time No Known Allergies Allergy Verified 11/21/17 12:57 Review of Systems ROS Statement: Those systems with pertinent positive or pertinent negative responses have been documented in the HPI. ROS Other: All systems not noted in ROS Statement are negative. Past Medical History Past Medical History: GERD/Reflux, Neurologic Disorder, Seizure Disorder Additional Past Medical History / Comment(s): multiple sclerosis, daily migraines, last seizure 1 yr ago, scoliosis,, neuropathy, choking easily, has episodes where looses vision for period of up to 48 hrs-cause unknown History of Any Multi-Drug Resistant Organisms: None Reported Past Surgical History: Appendectomy, Section, Tubal Ligation Additional Past Surgical History / Comment(s): D&C, CORRECTIVE EYE SURGERY Past Anesthesia/Blood Transfusion Reactions: Motion Sickness Additional Past Anesthesia/Blood Transfusion Reaction / Comment(s): "SPINAL WAS DIFFICULT D/T SCOLIOSIS" Past Psychological History: Anxiety, Bipolar, Depression, PTSD Smoking Status: Never smoker Past Alcohol Use History: Occasional Past Drug Use History: None Reported - Past Family History Father Family Medical History: Unable to Obtain Additional Family Medical History / Comment(s): does'nt know Mother Family Medical History: No Reported History Additional Family Medical History / Comment(s): . General Exam - General Exam Comments Initial Comments: GENERAL: Patient is well-developed and well-nourished. Patient is nontoxic and well- hydrated and is in mild distress. ENT: Neck is soft and supple. No significant lymphadenopathy is noted. Oropharynx is clear. Moist mucous membranes. EYES: The sclera were anicteric and conjunctiva were pink and moist. Extraocular movements were intact and pupils were equal round and reactive to light. Eyelids were unremarkable. PULMONARY: Unlabored respirations. Good breath sounds bilaterally. No audible rales rhonchi or wheezing was noted. CARDIOVASCULAR: There is a regular rate and rhythm without any murmurs gallops or rubs. ABDOMEN: Mild suprapubic abdominal pain SKIN: Skin is clear with no lesions or rashes and otherwise unremarkable. GENITALIA On pelvic exam with speculum I removed an old tampon that was very malodorous. After that was removed the vaginal vault look completely normal the os was closed and there was no active bleeding. NEUROLOGIC: Patient is alert and oriented x3. Cranial nerves II through XII are grossly intact. Motor and sensory are also intact. Normal speech, volume and content. Symmetrical smile. C MUSCULOSKELETAL: Normal extremities with adequate strength and full range of motion. No lower extremity swelling or edema. No calf tenderness. LYMPHATICS: No significant lymphadenopathy is noted PSYCHIATRIC: Normal psychiatric evaluation. Normal interpersonal interactions appears functionally intact in deals appropriately with others. No signs of depression. Limitations: no limitations Course Vital Signs 11/21/17 12:00 Temperature 98.1 F Pulse Rate 77 Respiratory 16 Rate Blood Pressure 135/78 O2 Sat by Pulse 98 Oximetry Medical Decision Making - Lab Data Result diagrams: 11/21/17 13:15 11/21/17 13:15 Lab Results 11/21/17 11/21/17 11/21/17 Range/Units 13:15 13:15 13:15 WBC 6.2 (3.8-10.6) k/uL RBC 4.50 (3.80-5.40) m/uL Hgb 12.4 (11.4-16.0) gm/dL Hct 38.7 (34.0-46.0) % MCV 85.8 (80.0-100.0) fL MCH 27.4 (25.0-35.0) pg MCHC 32.0 (31.0-37.0) g/dL RDW 13.2 (11.5-15.5) % Plt Count 210 (150-450) k/uL Sodium 140 (137-145) mmol/L Potassium 4.3 (3.5-5.1) mmol/L Chloride 104 (98-107) mmol/L Carbon Dioxide 26 (22-30) mmol/L Anion Gap 10 mmol/L BUN 12 (7-17) mg/dL Creatinine 0.58 (0.52-1.04) mg/dL Est GFR (CKD-EPI)AfAm >90 (>60 ml/min/1.73 sqM) Est GFR (CKD-EPI)NonAf >90 (>60 ml/min/1.73 sqM) Glucose 96 (74-99) mg/dL Calcium 9.1 (8.4-10.2) mg/dL Total Bilirubin 0.4 (0.2-1.3) mg/dL AST 17 (14-36) U/L ALT 25 (9-52) U/L Alkaline Phosphatase 69 (38-126) U/L Total Protein 6.7 (6.3-8.2) g/dL Albumin 4.2 (3.5-5.0) g/dL Urine Color Light Yellow Urine Appearance Clear (Clear) Urine pH 7.0 (5.0-8.0) Ur Specific [place] 1.010 (1.001-1.035) Urine Protein Negative (Negative) Urine Glucose (UA) Negative (Negative) Urine Ketones Negative (Negative) Urine Blood Trace H (Negative) Urine Nitrite Negative (Negative) Urine Bilirubin Negative (Negative) Urine Urobilinogen <2.0 (<2.0) mg/dL Ur Leukocyte Esterase Negative (Negative) Urine RBC <1 (0-5) /hpf Urine WBC 1 (0-5) /hpf Ur Squamous Epith Cells <1 (0-4) /hpf Urine Mucus Rare H (None) /hpf Disposition Clinical Impression: Vaginal foreign body Disposition: HOME SELF-CARE Condition: Good Instructions: Vaginal Foreign Body (ED) Referrals: Evangelist Anne DO [Primary Care Provider] - 1-2 days Time of Disposition: 15:09
[2017-11-21 15:26] VITALS: BP 124/75; PULSE 82; RESP 18; TEMP 98.7
[2017-11-21 15:28] LABS: Eosinophils # (M) 0.06 k/uL (0-0.7); Lymphocytes # (M) 1.49 k/uL (1.0-4.8); Monocytes # (M) 0.43 k/uL (0-1.0); Neutrophils # (M) 4.22 k/uL (1.3-7.7); Neutrophils % (M) 68 %; Nucleated Red Blood Cells 0 /100 WBC (0-0); Total Cells Counted 100
[2017-11-21 15:29] LABS: Polychromasia Present
== END 2017-11-21 15:24 | disposition home or self-care (01) ==
LOC: EC 11:15
DX: T19.2XXA Foreign body in vulva and vagina, initial encounter (principal); R42 Dizziness and giddiness; G40.909 Epilepsy, unspecified, not intractable, without status epilepticus; F31.9 Bipolar disorder, unspecified; Z79.899 Other long term (current) drug therapy; Z90.49 Acquired absence of other specified parts of digestive tract
CPT/HCPCS: 36415; 80053; 81001; 85027; 99283

== ENCOUNTER → 2020-11-11 | Outpatient (CLI) | payer OTHER ==
[2020-11-11 15:12] LABS: ALT 13 U/L (4-34); AST 22 U/L (14-36); African American GFR (CKD) >90 (>60 ml/min/1.73 sqM); Albumin 4.7 g/dL (3.5-5.0); Albumin/Globulin Ratio 1.7; Alkaline Phosphatase 65 U/L (38-126); Anion Gap 9 mmol/L; Blood Urea Nitrogen 13 mg/dL (7-17); Calcium 9.5 mg/dL (8.4-10.2); Carbon Dioxide 26 mmol/L (22-30); Chloride 106 mmol/L (98-107); Globulin 2.8 g/dL; Glucose 98 mg/dL (74-99); Non-African American GFR(CKD) >90 (>60 ml/min/1.73 sqM); Potassium 4.8 mmol/L (3.5-5.1); Sodium 141 mmol/L (137-145); Total Bilirubin 0.2 mg/dL (0.2-1.3); Total Protein 7.5 g/dL (6.3-8.2)
[2020-11-11 20:08] LABS: Basophils # (A) 0.03 X 10*3/uL (0.00-0.10); Basophils % (A) 0.4 %; Eosinophils # (A) 0.02 X 10*3/uL (0.04-0.35); Eosinophils % (A) 0.3 %; HCT 39.5 % (37.2-46.3); Lymphocytes # (A) 1.43 X 10*3/uL (0.90-5.00); Lymphocytes % (A) 19.9 %; MCH 26.5 pg (27.0-32.0); MCHC 30.4 g/dL (32.0-37.0); MCV 87.4 fL (80.0-97.0); Mean Platelet Volume 10.8 fL (9.5-12.2); Monocytes # (A) 0.49 X 10*3/uL (0.20-1.00); Monocytes % (A) 6.8 %; Neutrophils % (A) 72.2 %; Platelet Count 220 X 10*3/uL (140-440); RBC 4.52 X 10*6/uL (4.10-5.20); RDW 15.3 % (11.5-14.5)
== END | disposition home or self-care (01) ==
LOC: LABWHC1 12:37
PROVIDERS: ATTEND Physician Assistant
DX: E55.9 Vitamin D deficiency, unspecified (principal); G35 Multiple sclerosis
CPT/HCPCS: 36415; 80053; 82306; 82607; 85025

== ENCOUNTER → 2020-12-09 | Outpatient (CLI) | payer OTHER ==
--- NOTE | 2020-12-12 03:46 | US ---
EXAMINATION TYPE: US pelvic complete DATE OF EXAM: 12/09/2020 COMPARISON: NONE CLINICAL HISTORY: 35-year-old female N92.0 Menorrhea. TECHNIQUE: Transabdominal (TA). Date of LMP: 12/03/2020 FINDINGS: EXAM MEASUREMENTS: Uterus: 7.3 x 4.5 x 6.4 cm Endometrial Stripe: 1.0 cm Right Ovary: 3.1 x 3.1 x 1.7 cm for a volume of 8.3 mL. Left Ovary: 2.3 x 3.1 x 2.3 cm for a volume of 8.5 mL. 1. Uterus: Anteverted and otherwise wnl 2. Endometrium: wnl 3. Right Ovary: wnl 4. Left Ovary: wnl with a few small follicles noted. 5. Bilateral Adnexa: wnl 6. Posterior cul-de-sac: no free fluid IMPRESSION: Anteverted uterus. Endometrial stripe measures 1 cm. Unremarkable ovaries. No pelvic free fluid.
== END | disposition home or self-care (01) ==
LOC: RADUSWWP 15:04
PROVIDERS: ATTEND Pediatrics
DX: N85.4 Malposition of uterus (principal)
CPT/HCPCS: 76856

== ENCOUNTER 2021-02-06 16:13 | Emergency (ER) | payer OTHER ==
[2021-02-06 16:18] VITALS: BP 158/87; PULSE 94; RESP 18; TEMP 97.6
[2021-02-06] MEDS ORDERED: IBUPROFEN 600 MG TAB PO STA (16:24)
--- NOTE | 2021-02-06 17:53 | XR ---
EXAMINATION TYPE: XR foot complete LT, XR ankle complete LT DATE OF EXAM: 02/06/2021 COMPARISON: NONE HISTORY: Left foot and ankle pain after rolling foot walking down stairs one day ago. pain. TECHNIQUE: AP, oblique, and lateral views of the left foot obtained. AP, oblique, and lateral views o f the left ankle obtained. FINDINGS: The ankle mortise is maintained. There is a ankle joint effusion. There is a moderately dis placed obliquely oriented fracture of the fifth metatarsal diaphysis with adjacent lateral foot soft tissue swelling. No dislocation. Normal mineralization. IMPRESSION: 1. Moderately displaced oblique fracture of the fifth metatarsal diaphysis. Associated lateral foot s oft tissue swelling. 2. Ankle joint effusion.
[2021-02-06] MEDS ORDERED: ACET/COD 300 MG/30 MG STARTER PACK 6 TAB BTL PO STA (18:33)
--- NOTE | 2021-02-06 18:34 | ED ---
General Adult HPI - General Chief complaint: Extremity Injury, Lower Stated complaint: Lft foot injury Time Seen by Provider: 02/06/21 16:21 Source: patient, RN notes reviewed Mode of arrival: ambulatory Limitations: no limitations - History of Present Illness Initial comments: 35-year-old female presents to the emergency room for left foot pain. Patient reports yesterday she was walking on the steps and rolled her ankle and foot. Patient states she has been unable to walk on the left foot because of this. Patient denies any other injuries. She did not hit her head. Patient has no other complaints at this time including shortness of breath, chest pain, abdominal pain, nausea or vomiting, headache, or visual changes. - Related Data Home Medications Medication Instructions Recorded Confirmed Baclofen [Lioresal] 20 mg PO TID PRN 10/17/17 11/21/17 Divalproex Sodium [Depakote] 500 mg PO TID 10/17/17 11/21/17 clonazePAM [KlonoPIN] 0.5 mg PO TID PRN 11/21/17 11/21/17 Previous Rx's Medication Instructions Recorded Lurasidone [Latuda] 40 mg PO AC-BRKFST #30 tablet 07/12/17 DULoxetine HCL [Cymbalta] 30 mg PO QAM #0 10/18/17 Allergies Allergy/AdvReac Type Severity Reaction Status Date / Time No Known Allergies Allergy Verified 02/06/21 16:18 Review of Systems ROS Statement: Those systems with pertinent positive or pertinent negative responses have been documented in the HPI. ROS Other: All systems not noted in ROS Statement are negative. Past Medical History Past Medical History: GERD/Reflux, Neurologic Disorder, Seizure Disorder Additional Past Medical History / Comment(s): multiple sclerosis, daily migraines, last seizure 1 yr ago, scoliosis,, neuropathy, choking easily, has episodes where looses vision for period of up to 48 hrs-cause unknown History of Any Multi-Drug Resistant Organisms: None Reported Past Surgical History: Appendectomy, Section, Tubal Ligation Additional Past Surgical History / Comment(s): D&C, CORRECTIVE EYE SURGERY Past Anesthesia/Blood Transfusion Reactions: Motion Sickness Additional Past Anesthesia/Blood Transfusion Reaction / Comment(s): "SPINAL WAS DIFFICULT D/T SCOLIOSIS" Past Psychological History: Anxiety, Bipolar, Depression, PTSD Smoking Status: Never smoker Past Alcohol Use History: Occasional Past Drug Use History: None Reported - Past Family History Father Family Medical History: Unable to Obtain Additional Family Medical History / Comment(s): does'nt know Mother Family Medical History: No Reported History Additional Family Medical History / Comment(s): . General Exam Limitations: no limitations General appearance: alert, in no apparent distress Head exam: Present: atraumatic, normocephalic, normal inspection Eye exam: Present: normal appearance, PERRL, EOMI. Absent: scleral icterus, conjunctival injection, periorbital swelling ENT exam: Present: normal exam, mucous membranes moist Neck exam: Present: normal inspection, full ROM. Absent: tenderness, meningismus, lymphadenopathy Respiratory exam: Present: normal lung sounds bilaterally. Absent: respiratory distress, wheezes, rales, rhonchi, stridor Cardiovascular Exam: Present: regular rate, normal rhythm, normal heart sounds. Absent: systolic murmur, diastolic murmur, rubs, gallop, clicks GI/Abdominal exam: Present: soft, normal bowel sounds. Absent: distended, tenderness, guarding, rebound, rigid Extremities exam: Present: tenderness (Tenderness to the fifth metatarsal of the left foot.), normal capillary refill (Capillary refill less than 2 seconds, DP pulse 2+.), other (She does have edema and ecchymosis on the lateral aspect of the left foot.). Absent: full ROM (Limited range of motion of the left ankle secondary to pain. Patient able to move all toes.) Course Vital Signs 02/06/21 16:14 Temperature 97.6 F Pulse Rate 94 Respiratory 18 Rate Blood Pressure 158/87 O2 Sat by Pulse 98 Oximetry Procedures - Orthopedic Splinting/Casting Injury #1 Side: left Lower Extremity Injury Location: short leg Lower Extremity Immobilizer: posterior splint Other Orthopedic Equipment: crutches Additional Comments: Neurovascular status intact after splint applied Medical Decision Making - Medical Decision Making X-ray of the foot showed a moderately displaced oblique fracture of the fifth metatarsal diaphysis. There is associated lateral soft tissue swelling of the foot as well. There is also an ankle joint effusion. Patient was splinted in a posterior short-leg splint. Given crutches, recommended nonweightbearing and following up with orthopedics. Referral given. She was given crutches here in the ER. She will return here for any worsening symptoms. Disposition Clinical Impression: Fracture of 5th metatarsal Disposition: HOME SELF-CARE Condition: Good Instructions (If sedation given, give patient instructions): Foot Fracture in Adults (ED) Additional Instructions: Please keep splint dry and in place. Take Tylenol or Tylenol [address] pain [address] not drive while taking these. Use crutches and remain nonweightbearing on that foot. Follow-up with orthopedics by calling Saturday for an appointment. Return to the emergency room for any worsening symptoms. Is patient prescribed a controlled substance at d/c from ED?: No Referrals: Augusto Salazar MD [Primary Care Provider] - 1-2 days Eligio Bustos MD [STAFF PHYSICIAN] - 1-2 days Time of Disposition: 18:32
== END 2021-02-06 18:44 | disposition home or self-care (01) ==
LOC: EC 16:13
DX: S92.352A Displaced fracture of fifth metatarsal bone, left foot, initial encounter for closed fracture (principal); K21.9 Gastro-esophageal reflux disease without esophagitis; F31.9 Bipolar disorder, unspecified; F41.9 Anxiety disorder, unspecified; G40.909 Epilepsy, unspecified, not intractable, without status epilepticus; G43.909 Migraine, unspecified, not intractable, without status migrainosus; X50.1XXA Overexertion from prolonged static or awkward postures, initial encounter; Y93.01 Activity, walking, marching and hiking
CPT/HCPCS: 29515; 99283

== ENCOUNTER 2021-05-22 20:50 | Inpatient (IN) | payer OTHER ==
[2021-05-22] MEDS ORDERED: SODIUM CHLORIDE 0.9% 1,000 ML IV STA (21:38)
[2021-05-22] MEDS ORDERED: levETIRAcetam IV 1,000 MG in SALINE 1 100ML.BAG IVPB ONE (22:00)
[2021-05-22] MEDS ORDERED: KETOROLAC 15 MG/ML 1 ML VIAL IVP STA (22:00)
--- NOTE | 2021-05-22 22:08 | ED ---
Seizure HPI - General Chief Complaint: Seizure Stated Complaint: Ms annie,seizure Time Seen by Provider: 05/22/21 21:19 Source: patient Mode of arrival: ambulatory Limitations: no limitations - History of Present Illness Initial Comments: 35-year-old female with history of MS and seizures presents to the emergency department with a chief complaint of a seizure. Patient reports she is having a flareup of her MS. States she is presenting with seizure that occurred around 1730. States she's had 3 seizures in total today. He states she's had multiple over the last 1 week. States this time it was witnessed by her son. Her son states the patient supposedly had foaming in her mouth with some shaking for about 2 hours on the ground. Patient reports she sees Dr. Mtz over the last year. States she takes 750 mg of Keppra twice a day. Her last dose was prior to her seizure. Patient states she can feel an oncoming seizure and tends to lay down on the ground whenever it is about to happen. Patient also reports chronic pain in her legs. - Related Data Home Medications Medication Instructions Recorded Confirmed Propranolol HCl 20 mg PO BID 05/22/21 05/22/21 levETIRAcetam 750 mg PO BID 05/22/21 05/22/21 Allergies Allergy/AdvReac Type Severity Reaction Status Date / Time No Known Allergies Allergy Verified 05/22/21 22:08 Review of Systems ROS Statement: Those systems with pertinent positive or pertinent negative responses have been documented in the HPI. ROS Other: All systems not noted in ROS Statement are negative. Past Medical History Past Medical History: GERD/Reflux, Neurologic Disorder, Seizure Disorder Additional Past Medical History / Comment(s): multiple sclerosis, daily migraines, last seizure 1 yr ago, scoliosis,, neuropathy, choking easily, has episodes where looses vision for period of up to 48 hrs-cause unknown History of Any Multi-Drug Resistant Organisms: None Reported Past Surgical History: Appendectomy, Section, Tubal Ligation Additional Past Surgical History / Comment(s): D&C, CORRECTIVE EYE SURGERY Past Anesthesia/Blood Transfusion Reactions: Motion Sickness Additional Past Anesthesia/Blood Transfusion Reaction / Comment(s): "SPINAL WAS DIFFICULT D/T SCOLIOSIS" Past Psychological History: Anxiety, Bipolar, Depression, PTSD Smoking Status: Never smoker Past Alcohol Use History: Occasional Past Drug Use History: None Reported - Past Family History Father Family Medical History: Unable to Obtain Additional Family Medical History / Comment(s): does'nt know Mother Family Medical History: No Reported History Additional Family Medical History / Comment(s): . General Exam Limitations: no limitations General appearance: alert, in no apparent distress Head exam: Present: atraumatic, normocephalic, normal inspection Eye exam: Present: normal appearance, PERRL, EOMI Pupils: Present: normal accommodation ENT exam: Present: normal exam, normal oropharynx, mucous membranes moist, TM's normal bilaterally, normal external ear exam Neck exam: Present: normal inspection, full ROM. Absent: tenderness Respiratory exam: Present: normal lung sounds bilaterally. Absent: respiratory distress, wheezes, rales, rhonchi, stridor, chest wall tenderness, accessory muscle use Cardiovascular Exam: Present: regular rate, normal rhythm, normal heart sounds. Absent: systolic murmur Extremities exam: Present: normal inspection, full ROM, normal capillary refill. Absent: tenderness, pedal edema, joint swelling Back exam: Present: normal inspection, full ROM. Absent: tenderness Neurological exam: Present: alert, oriented X3, CN II-XII intact, normal gait Psychiatric exam: Present: normal affect, normal mood Skin exam: Present: warm, dry, intact, normal color Course Vital Signs 05/22/21 05/22/21 20:57 21:34 Temperature 97.8 F Pulse Rate 72 67 Respiratory 18 18 Rate Blood Pressure 157/103 O2 Sat by Pulse 95 99 Oximetry Medical Decision Making - Medical Decision Making 35-year-old female with history of MS and seizures presents to the emergency department with a chief complaint of a seizure. On physical examination, patien t is alert and oriented 3. No focal neural deficits. Patient is hypertensive was given 10 mg of hydralazine. When necessary Ativan on board. Patient was also given thousand milligrams of Keppra. Laboratory work reveals no acute findings. CT of the brain pending. UA pending. Negative hCG for . Patient was given 15 mg of Toradol for pain with minimal improvement in symptoms. I did offer stronger analgesics, she declined. She reports during periods of vomiting last patient, she is admitted for infusions of IV steroids. Seizure versus MS exacerbation. Laboratory workup, physical examination and presentation are less likely to suggest a seizure. Patient will be admitting f or further medical management. Dr. Chakraborty will speak with Dr Varela for admission. Neurology consult - Lab Data Result diagrams: 05/22/21 22:02 05/22/21 22:02 Lab Results 05/22/21 05/22/21 05/22/21 Range/Units 22:02 22:02 22:02 WBC 6.7 (3.8-10.6) k/uL RBC 4.53 (3.80-5.40) m/uL Hgb 12.6 (11.4-16.0) gm/dL Hct 38.2 (34.0-46.0) % MCV 84.3 (80.0-100.0) fL MCH 27.7 (25.0-35.0) pg MCHC 32.9 (31.0-37.0) g/dL RDW 15.2 (11.5-15.5) % Plt Count 292 (150-450) k/uL MPV 7.7 Neutrophils % 47 % Lymphocytes % 42 % Monocytes % 6 % Eosinophils % 1 % Basophils % 1 % Neutrophils # 3.2 (1.3-7.7) k/uL Lymphocytes # 2.8 (1.0-4.8) k/uL Monocytes # 0.4 (0-1.0) k/uL Eosinophils # 0.1 (0-0.7) k/uL Basophils # 0.0 (0-0.2) k/uL Sodium 141 (137-145) mmol/L Potassium 4.4 (3.5-5.1) mmol/L Chloride 107 (98-107) mmol/L Carbon Dioxide 23 (22-30) mmol/L Anion Gap 11 mmol/L BUN 10 (7-17) mg/dL Creatinine 0.54 (0.52-1.04) mg/dL Est GFR (CKD-EPI)AfAm >90 (>60 ml/min/1.73 sqM) Est GFR (CKD-EPI)NonAf >90 (>60 ml/min/1.73 sqM) Glucose 95 (74-99) mg/dL Plasma Lactic Acid Daniel 1.0 (0.7-2.0) mmol/L Calcium 9.1 (8.4-10.2) mg/dL Magnesium 1.9 (1.6-2.3) mg/dL Total Bilirubin 0.3 (0.2-1.3) mg/dL AST 49 H (14-36) U/L ALT 22 (4-34) U/L Alkaline Phosphatase 98 (38-126) U/L Total Protein 7.1 (6.3-8.2) g/dL Albumin 4.3 (3.5-5.0) g/dL HCG, Quant <2.4 mIU/mL - EKG Data EKG Comments: sinus rhythm Ventricle rate 67, WA 130, QRS 72, QTC 435. Disposition Clinical Impression: Multiple sclerosis exacerbation Disposition: ADMITTED IP TO THIS HOSP Condition: Fair Is patient prescribed a controlled substance at d/c from ED?: No Referrals: Augusto Salazar MD [Primary Care Provider] - 1-2 days Time of Disposition: 00:01
[2021-05-22 22:23] LABS: Basophils % (A) 1 %; Eosinophils # (A) 0.1 k/uL (0-0.7); Eosinophils % (A) 1 %; HCT 38.2 % (34.0-46.0); HGB 12.6 gm/dL (11.4-16.0); Lymphocytes # (A) 2.8 k/uL (1.0-4.8); Lymphocytes % (A) 42 %; MCH 27.7 pg (25.0-35.0); MCHC 32.9 g/dL (31.0-37.0); MCV 84.3 fL (80.0-100.0); Mean Platelet Volume 7.7; Monocytes # (A) 0.4 k/uL (0-1.0); Monocytes % (A) 6 %; Neutrophils # (A) 3.2 k/uL (1.3-7.7); Neutrophils % (A) 47 %; Platelet Count 292 k/uL (150-450); RBC 4.53 m/uL (3.80-5.40); RDW 15.2 % (11.5-15.5); WBC 6.7 k/uL (3.8-10.6)
[2021-05-22 22:32] LABS: ALT 22 U/L (4-34); AST 49 U/L (14-36); African American GFR (CKD) >90 (>60 ml/min/1.73 sqM); Albumin 4.3 g/dL (3.5-5.0); Alkaline Phosphatase 98 U/L (38-126); Anion Gap 11 mmol/L; Blood Urea Nitrogen 10 mg/dL (7-17); Calcium 9.1 mg/dL (8.4-10.2); Carbon Dioxide 23 mmol/L (22-30); Chloride 107 mmol/L (98-107); Glucose 95 mg/dL (74-99); Magnesium 1.9 mg/dL (1.6-2.3); Non-African American GFR(CKD) >90 (>60 ml/min/1.73 sqM); Potassium 4.4 mmol/L (3.5-5.1); Sodium 141 mmol/L (137-145); Total Bilirubin 0.3 mg/dL (0.2-1.3); Total Protein 7.1 g/dL (6.3-8.2)
[2021-05-22 22:49] LABS: HCG,Quantitative Serum <2.4 mIU/mL
[2021-05-22] MEDS ORDERED: hydrALAZINE HCL 20 MG/ML 1 ML VIAL IVP STA (23:34)
[2021-05-23 00:05] LABS: Appearance,Urine Clear (Clear); Bilirubin,Urine Negative (Negative); Blood,Urine Negative (Negative); Color,Urine Light Yellow; Glucose,Urine (UA) Negative (Negative); Ketones,Urine Negative (Negative); Leukocyte Esterase,Urine Negative (Negative); Nitrite,Urine Negative (Negative); PH, Urine 6.5 (5.0-8.0); Protein,Urine Negative (Negative); Specific Gravity,Urine 1.014 (1.001-1.035); Urobilinogen,Urine <2.0 mg/dL (<2.0)
[2021-05-23] MEDS: SODIUM CHLORIDE 0.9% 1,000 ML IV SCH ×2 (00:15→20:49)
[2021-05-23 00:19] LABS: Amphetamine Screen,Urine Not Detected (NotDetected); Barbiturate Screen,Urine Not Detected (NotDetected); Benzodiazepines Screen,Urine Not Detected (NotDetected); Cocaine Screen,Urine Not Detected (NotDetected); Methadone Screen, Urine Not Detected (NotDetected); Opiate Screen,Urine Not Detected (NotDetected); Oxycodone Screen, Urine Not Detected (NotDetected); Phencyclidine Screen,Urine Not Detected (NotDetected); Tricyclic Antidepressant,Urine Not Detected (NotDetected); Urn Cannabinoid Scrn Not Detected (NotDetected)
[2021-05-23] MEDS ORDERED: NALOXONE 0.4 MG/ML 1 ML VIAL IV PRN (00:30)
[2021-05-23] MEDS ORDERED: LORazepam 2 MG/ML INJ IV PRN (00:30)
--- NOTE | 2021-05-23 00:47 | CT ---
EXAMINATION TYPE: CT brain wo con DATE OF EXAM: 05/23/2021 COMPARISON: 03/31/2012 HISTORY: seizure. prior on PACS CT DLP: 1092.4 mGycm Automated exposure control for dose reduction was used. Ventricles have normal size. There is no mass effect nor midline shift. There is no sign of intracran ial hemorrhage. The calvarium is intact. Skull base is intact. There is normal aeration of the mastoi d sinuses. IMPRESSION: Negative CT scan of the brain. No change compared to old exam.
--- NOTE | 2021-05-23 11:53 | P.CNNES ---
History of Present Illness Consult date: 05/23/21 Requesting physician: Laci Nino Reason for Consult: MS exacerbation, seizure History of Present Illness: This is a 35-year-old woman medical history of relapsing-remitting multiple sclerosis, epilepsy, temor with psych history of bipolar, anxiety and PTSD that presented emergency department on 05/22/2021 with a complaint of multiple seizures. Patient stated that her seizure began around the 5:30 PM on the and had a total of 3 seizures yesterday. She stated she had multiple over the last 1 to week. Her was witnessed by her son and that she was phone around the mouth and some shaken for about 2 hours on the ground. She said that the first episode lasted about 10-15 minutes and she stated that the she had a hard time standing up her throat was getting heavy and she starts shaking but she does not recall losing consciousness and then within that 2 hours she had 2 further episode where she lost consciousness she was shaking throughout the extremities but she denied any bladder or bowel incontinence or tongue bite that. Patient stated that she is on Keppra 750 mg 1 tablet twice a day and is complaint with medication. She also feels she is having a flareup of her MS since she feels she is having worsening of her numbness and tingling of her lower extremities having difficulty walk-in and worsening of her tremor. Per the patient's nurse since the patient has been in the ED she has not had any further seizures. She does acknowledge that she is under stress but she feels about the same and she denies any suicidal or homicidal thoughts or plans. Patient follows up with her neurologist (Dr. Alcazar team). She said that she is to follow up with Dr. Hernandez over at [facility] which she had lumbar puncture and that was normal but she had that imaging the she said she had MRIs she believes and that was a diagnostic for multiple sclerosis and she was told that was diagnostic to the Still criteria. She was on Interferon bet 1b (betaseron) while she was still follow-up with her neurologist over at [facility] and she said that was a helping prevent relapses but she continued to have relapses but that there is a decrease and decrease in the frequency of relapses she had but that her neurologist retired therefore she's been seeing Dr. Alcazar's team for the past one year and she is waiting for authorization for Vumerity (Diroximel fumurate). She was also given a prescription for the ambulatory EEG for 72 hours and has not been done or scheduled yet. She said that she had that EEGs in the past and that it actually the there was a seizures that was seen on the EEG. Her mother has history of Multiple Sclerosis. Her home medication is on Keppra 750 mg a tablet twice a day and propranolol 20 mg a tablet twice a day for her tremor). Regarding the seizure she said she was on Topamax in the past but does not recall dose and was changed to Keppra 750mg bid for a while and nothing was change in the last at least few months. Some of the patient's workup in the hospital consisted of: Initial vital signs: Blood pressure of 157/103, heart rate of 72, respiratory of 18, initial temperature of 97.8 Fahrenheit oral and pulse ox of the 95% room air. CBC with differential is unremarkable. Chemistry panel is AST is 49 which is minimally elevated but not remarkable otherwise rest of the chemistry panel is unremarkable. Calcium 9.1, magnesium 1.9, ALT of 22, sodium 141, creatinine of 0.54 which is within normal limits. Plasma lactic acid vein is 1.0. Her hCG is less than 2.[address] which is considered normal CT of the head is reported as negative CT scan of the brain. No change compared to old exam. Review of Systems Review of system: The 12 point system was reviewed and apparent positive and negative per HPI. Past Medical History Past Medical History: GERD/Reflux, Neurologic Disorder, Seizure Disorder Additional Past Medical History / Comment(s): multiple sclerosis, daily migraines, last seizure 1 yr ago, scoliosis,, neuropathy, choking easily, has episodes where looses vision for period of up to 48 hrs-cause unknown History of Any Multi-Drug Resistant Organisms: None Reported Past Surgical History: Appendectomy, Section, Tubal Ligation Additional Past Surgical History / Comment(s): D&C, CORRECTIVE EYE SURGERY Past Anesthesia/Blood Transfusion Reactions: Motion Sickness Additional Past Anesthesia/Blood Transfusion Reaction / Comment(s): "SPINAL WAS DIFFICULT D/T SCOLIOSIS" Past Psychological History: Anxiety, Bipolar, Depression, PTSD Smoking Status: Never smoker Past Alcohol Use History: Occasional Past Drug Use History: None Reported - Past Family History Father Family Medical History: Unable to Obtain Additional Family Medical History / Comment(s): does'nt know Mother Family Medical History: No Reported History Additional Family Medical History / Comment(s): . Medications and Allergies Home Medications Medication Instructions Recorded Confirmed Type Propranolol HCl 20 mg PO BID 05/22/21 05/22/21 History levETIRAcetam 750 mg PO BID 05/22/21 05/22/21 History Allergies Allergy/AdvReac Type Severity Reaction Status Date / Time No Known Allergies Allergy Verified 05/22/21 22:08 Physical Examination - Vital Signs Vital Signs: Vital Signs Temp Pulse Resp BP Pulse Ox 05/23/21 06:48 62 18 109/70 100 05/23/21 03:24 90 18 116/72 99 05/23/21 01:40 82 20 141/102 100 05/22/21 23:00 75 18 163/129 99 05/22/21 21:34 67 18 157/103 99 05/22/21 20:57 97.8 F 72 18 95 Intake and Output 05/22/21 05/23/21 05/23/21 22:59 06:59 14:59 Other: Weight 56.245 kg GENERAL: The patient is lying in bed and is not in acute distress. CHEST: The heart rate is regular rate rhythm. No murmurs to auscultation. No carotid bruit bilaterally. LUNG: Clear to auscultation bilaterally no wheezing noted throughout. Not labored breathing. ABDOMEN/GI: Bowel sounds present in all 4 quadrants. No tenderness to palpation throughout. NEUROLOGICAL: Higher mental function: The patient is awake, alert, oriented to self, place and time. Patient is following commands. No aphasia and no neglect. Cranial nerves: The pupils are round, equal and reactive to light and accommodation. Visual hernandez are full to confrontation throughout. Extraocular movement is intact no nystagmus is noted. Facial sensation is normal to touch throughout. The facial strength is normal throughout. Hearing is normal bilaterally to hand rub. Tongue is midline and moved [id number] without any difficulty. No dysarthria is noted. Shoulder shrug is normal bilaterally. Motor: Gait was assessed but had a hard time taking few short steps and was having temors of hand and feet. She was able to stand up byself and walking without assistance and not swaying towards right or left. The strength is 4+ throughout . Normal tone and bulk. She had continous tremors at rest and with action (I am not sure if temors are functional or not). Cerebellum: Has slow finger to nose and was limited in peforming action having tremor. Sensation: Sensation is normal to touch throughout. Reflexes (right/left): 2+ throughout except patellar 3+ bilaterally. Plantars are mute bilaterally. Results - Laboratory Findings CBC and BMP: 05/22/21 22:02 05/22/21 22:02 Abnormal Lab Findings: Abnormal Labs 05/22/21 22:02 AST 49 H Assessment and Plan Assessment: Break-through seizures (she reports having multiple the day of presenting to hospital. I would have expected her labs to be reactive if she had multiple seizures (such has reactive wbc, lactic acid and creatnine. But all were normal). I am not sure if she has underlying seizure and pseudoseizures. Relapsing-Remitting Multiple Sclerosis (for 6 1/2 years). Rule out relapse History of epilepsy (for past 6 1/2 years) Tremor Bipolar Anxiety PTSD Plan: * I ordered MRI of the brain and cervical spine with and without to rule out any MS exacerbation. I will not start patient on IV steroid unless there is active new lesion. * Ordered ambulatory 2 1/2 hour EEG (she had multiple EEG in our facility and did not show any epilpetiform discharges or seizure on the EEG. But stated she had routine EEG as outpatient at different facility and was told she had seizure). * Currently patient is on Keppra 750 mg 1 tablet twice a day and I increased it to 1000mg 1 tab bid (I notified her of side-effect of mood but she wants to go ahead with increase. Consider use of Lamictal down the line which help with mood and seizure). * Ordered TSH, Vitamin B12, folate. Ordered Vitamin D level. * Every 4 hours neuro checks * On seizure precaution * Consulted physical therapy and occupational therapy. * Will defer the rest of the medical management to primary team. * I feel the patient will benefit seeing psychiatrist as outpatient. * Upon discharge, the patient needs to follow-up with her neurologist (Dr. Alcazar) as outpatient. Per [place] [facility] patient is to avoid driving for 6 month until the seizure-free. Patient is to avoid heights, using heavy machinery and swimming unassisted. This was notified to the patient. The plan is discussed with her nurse. Thank you for the consultation. Massimo Alicea MD Neuro-Hospitalist Time with Patient: Greater than 30
[2021-05-23] MEDS: ENOXAPARIN 40 MG/0.4 ML SYRINGE SQ SCH (12:30)
[2021-05-23] MEDS: PROPRANOLOL 20 MG TAB PO SCH ×2 (12:31→20:48)
[2021-05-23] MEDS ORDERED: ACETAMINOPHEN TAB 325 MG TAB PO PRN (15:35)
[2021-05-23] MEDS ORDERED: ONDANSETRON 4 MG TAB PO PRN (15:35)
[2021-05-23] MEDS ORDERED: NAPROXEN 250 MG TAB PO PRN (16:15)
[2021-05-23] MEDS ORDERED: NAPROXEN 250 MG TAB PO SCH (18:00)
--- NOTE | 2021-05-23 19:04 | P.HPIM ---
History of Present Illness H&P Date: 05/23/21 Chief Complaint: Seizures History of presenting complaint: This is a pleasant 35-year-old patient who follows with Dr. Salazar. Patient's chronic stable medical conditions include GERD, peripheral neuropathy, tremors. Patient also has been diagnosed with multiple sclerosis and has epilepsy. Patient follows with Rm at Dr. Martinez's office. Patient takes Keppra 750 mg twice daily. For the seizures. In the last 1-1/2 each patient been having increasing frequency of seizures. Her symptoms are described as numbness daily in the feet. Some dyspnea with choking sensation. She did also shake. She also passes out. She stops talking. Doesn't concern from her about also having her MS exacerbation. Hence she presented to ER. Review of systems: GEN.: Tired EYES: None HEENT: None NECK: None RESPIRATORY: None CARDIOVASCULAR: None GASTROINTESTINAL: Reflux GENITOURINARY: None MUSCULOSKELETAL: None LYMPHATICS: None HEMATOLOGICAL: None PSYCHIATRY: None NEUROLOGICAL: As above] Past medical history to include: GERD, hypertension, multiple sclerosis, epilepsy, migraines, scoliosis, peripheral neuropathy, bipolar Social history: Lives with her mother and 10-year-old son. Not employed. Alcohol occasionally. No smoking. No dictation drugs. Family history: Reviewed, noncontributory Physical examination: VITAL SIGNS: 97.8, 72, 18, 141/102, 99% room air, upon presentation GENERAL: BMI 22, sitting up in bed, awake, comfortable. EYES: Pupils equal. Conjunctiva normal. HEENT: External appearance of nose and ears normal, oral cavity grossly normal. NECK: JVD not raised; masses not palpable. HEART: First and second heart sounds are normal; no edema. LUNGS: Respiratory rate normal; clear to auscultation. ABDOMEN: Soft, nontender, liver spleen not palpable, no masses palpable. PSYCH: Alert and oriented x3; mood and affect normal. NEUROLOGICAL: Cranial nerves grossly intact; no facial asymmetry, power and sensation grossly intact. LYMPHATICS: No lymph nodes palpable in the axilla and neck INVESTIGATIONS, reviewed in the clinical context: WBC 6.7 hemoglobin 12.6 platelets 292 potassium 4.4 creatinine 0.5 for UA negative Urine drug screen negative Coronavirus [PCR] not detected EKG tracing personally reviewed by me-normal sinus rhythm, 67/m Computed tomography scan of the brain without contrast: Negative Assessment and plan: -Epilepsy uncontrolled. Patient's had been increased frequency of seizures in the last one and half weeks. Patient normally takes and 50 mg Keppra twice daily. This has been increased to thousand milligrams twice a day. Neuro checks. Neurology consulted EEG ordered. -Multiple sclerosis. At this point son cleared at that some exacerbation of the same. MRI has been ordered to look for rachael of lightening up, to determine if exacerbation is present. -GERD Use Tums when necessary -Peripheral neuropathy secondary to MS- -Chronic scoliosis -Bipolar disorder -Essential tremors Patient currently on Inderal. Keppra increased to thousand milligrams twice a day. EEG and MRI of the brain ordered. Neuro checks. Home medications resumed. Care was discussed with the patient. Lovenox for DVT prophylaxis. Follow with neurology. Past Medical History Past Medical History: GERD/Reflux, Neurologic Disorder, Seizure Disorder Additional Past Medical History / Comment(s): multiple sclerosis, daily migraines, last seizure 1 yr ago, scoliosis,, neuropathy, choking easily, has episodes where looses vision for period of up to 48 hrs-cause unknown History of Any Multi-Drug Resistant Organisms: None Reported Past Surgical History: Appendectomy, Section, Tubal Ligation Additional Past Surgical History / Comment(s): D&C, CORRECTIVE EYE SURGERY Past Anesthesia/Blood Transfusion Reactions: Motion Sickness Additional Past Anesthesia/Blood Transfusion Reaction / Comment(s): "SPINAL WAS DIFFICULT D/T SCOLIOSIS" Past Psychological History: Anxiety, Bipolar, Depression, PTSD Smoking Status: Never smoker Past Alcohol Use History: Occasional Past Drug Use History: None Reported - Past Family History Father Family Medical History: Unable to Obtain Additional Family Medical History / Comment(s): does'nt know Mother Family Medical History: No Reported History Additional Family Medical History / Comment(s): . Medications and Allergies Home Medications Medication Instructions Recorded Confirmed Type Propranolol HCl 20 mg PO BID 05/22/21 05/22/21 History levETIRAcetam 750 mg PO BID 05/22/21 05/22/21 History Allergies Allergy/AdvReac Type Severity Reaction Status Date / Time No Known Allergies Allergy Verified 05/22/21 22:08 Physical Exam Vitals: Vital Signs Temp Pulse Resp BP Pulse Ox 05/23/21 06:48 62 18 109/70 100 05/23/21 03:24 90 18 116/72 99 05/23/21 01:40 82 20 141/102 100 05/22/21 23:00 75 18 163/129 99 05/22/21 21:34 67 18 157/103 99 05/22/21 20:57 97.8 F 72 18 95 Intake and Output 05/22/21 05/23/21 05/23/21 22:59 06:59 14:59 Other: Weight 56.245 kg Results CBC & Chem 7: 05/22/21 22:02 05/22/21 22:02 Labs: Abnormal Lab Results - Last 24 Hours (Table) 05/22/21 Range/Units 22:02 AST 49 H (14-36) U/L
[2021-05-23] MEDS: levETIRAcetam 500 MG TAB PO SCH (20:48)
[2021-05-24] MEDS: SODIUM CHLORIDE 0.9% 1,000 ML IV SCH (03:28)
[2021-05-24 07:47] VITALS: BP 126/70; PULSE 56; RESP 15; TEMP 97.7
[2021-05-24] MEDS: ENOXAPARIN 40 MG/0.4 ML SYRINGE SQ SCH (08:11)
[2021-05-24] MEDS: PROPRANOLOL 20 MG TAB PO SCH (08:12)
[2021-05-24] MEDS: levETIRAcetam 500 MG TAB PO SCH (08:12)
[2021-05-24] MEDS ORDERED: NAPROXEN 250 MG TAB PO PRN (10:17)
--- NOTE | 2021-05-24 11:29 | MR ---
EXAMINATION TYPE: MR brain/cspine wo/w DATE OF EXAM: 05/24/2021 COMPARISON: Prior MRI brain July 10, 2017. Prior MRI cervical spine July 11, 2017 HISTORY: Multiple sclerosis. Rule out relapse. TECHNIQUE: Multiplanar, multisequence images of the brain and brainstem along the cervical spine are all perform ed without and with IV contrast, utilizing 6 mL intravenous Gadavist . Demyelinating disease protocol . FINDINGS: BRAIN: T2 Lesions Present : Yes Approximate Number of Lesions: Less than 5 tiny Locations Identified : Scattered Size of Reference Lesion(s): Difficult to accurately measure due to tiny size Enhancing Lesion(s) Present: No T1 Hypointense Lesion(s) Present: No Change from Prior: Suspected stable . Lesions less well seen due to change from 3 Sally to 1.5 Sally imaging. Diffusion weighted images demonstrate no evidence of a recent infarct or other diffusion abnormality. There is no worrisome extra-axial fluid collection. The ventricular system and cisternal spaces ar e normal in size and appearance. The brain volume is age appropriate. Midline structures demonstrate normal morphology. The craniocervical junction appears within normal limits. Post contrast images demonstrate no abnormal enhancement. The dural venous sinuses appear pa tent. The visualized sinuses are clear and the globes are intact. IMPRESSION: No new, enlarging, or enhancing lesions. C-SPINE: FINDINGS: Sagittal images of the cervical spine show the craniocervical junction to remain within nor mal limits. The cervical and upper thoracic spinal cord remains normal in course, caliber, and signa l. Vertebral alignment is stable with slight grade 1 retrolisthesis C5 on C6 redemonstrated. The ve rtebral body height are normal. Mild disc space narrowing C5-C6 level is now present. The bone marrow signal intensity is within normal limits. No suspicious postcontrast enhancement. Axial images show C2-C3 level to remain within normal limits. Axial images at C3-C4 level demonstrates broad-based posterior disc protrusion with foraminal compone nt effacing the anterior thecal sac and causing moderate bilateral neural foraminal narrowing. This i s more prominent from prior Axial images at C4-C5 level showed tiny right paracentral disc protrusion effacing anterior thecal sa c on image 43 with patent bilateral neural foramina. No significant change from prior. Axial images at C5-C6 level shows uncovertebral facet degenerative changes with broad-based left para central spur disc complex effacing the anterior thecal sac and causing moderate to severe bilateral n eural foraminal narrowing. Findings are more prominent from prior. Axial images at C6-C7 level shows broad-based posterior spur disc complex with prominent left paracen tral/foraminal component sagittal image 6, this is more prominent from prior, there is advanced left greater than right bilateral neural foraminal narrowing. Axial images at C7-T1 level remain within normal limits. IMPRESSION: No MRI evidence for demyelinating disease involvement in the cervical spinal cord. Worsen ing multilevel degenerative changes noted as detailed above somewhat prominent for patient's chronolo gic age.
--- NOTE | 2021-05-24 14:20 | P.PN ---
Subjective Progress Note Date: 05/24/21 Patient seen at bedside and she feels about the same today compared to yesterday. Per the patient nurse no seizure activity is noted. Objective - Vital Signs Vital signs: Vital Signs Temp 97.7 F 05/24/21 07:00 Pulse 56 L 05/24/21 13:38 Resp 15 05/24/21 13:38 BP 126/70 05/24/21 07:00 Pulse Ox 97 05/24/21 07:00 Intake & Output 05/23/21 05/24/21 05/24/21 18:59 06:59 18:59 Intake Total 240 1380 418 Balance 240 1380 418 Weight 56.245 kg Intake: Intake, IV Titration 900 Amount Sodium Chloride 0.9% 1, 900 000 ml @ 75 mls/hr IV . [id number] JAMES Rx#:[id number] Oral 240 480 418 Other: Voiding Method Toilet # Voids 1 3 3 - Exam GENERAL: The patient is lying in bed and is not in acute distress. NEUROLOGICAL: Higher mental function: The patient is awake, alert, oriented to self, place and time. Patient is following commands. No aphasia and no neglect. Cranial nerves: The pupils are round, equal and reactive to light and accommodation. Visual hernandez are full to confrontation throughout. Extraocular movement is intact no nystagmus is noted. Facial sensation is normal to touch throughout. The facial strength is normal throughout. Hearing is normal bilaterally to hand rub. Tongue is midline and moved [id number] without any difficulty. No dysarthria is noted. Shoulder shrug is normal bilaterally. Motor: Gait was assessed but had a hard time taking few short steps and was h aving temors of hand and feet. She was able to stand up byself and walking without assistance and not swaying towards right or left. The strength is 4+ throughout . Normal tone and bulk. She had continous tremors at rest and with action (I am not sure if temors are functional or not). Cerebellum: Has slow finger to nose and was limited in peforming action having tremor. Sensation: Sensation is normal to touch throughout. Reflexes (right/left): 2+ throughout except patellar 3+ bilaterally. Plantars are mute bilaterally. WORK-UP: CBC with differential is unremarkable. Chemistry panel is AST is 49 which is minimally elevated but not remarkable otherwise rest of the chemistry panel is unremarkable. Calcium 9.1, magnesium 1.9, ALT of 22, sodium 141, creatinine of 0.54 which is within normal limits. Plasma lactic acid vein is 1.0. Her hCG is less than 2.4 which is considered normal CT of the head is reported as negative CT scan of the brain. No change compared to old exam. MRI brain is reported as no new, enlarging or enhancing lesion. There is no evidence of recent infarct in the body report. Personally reviewed the MRI and I do agree there is no new lesion seen on the MRI with gadolinium. The FLAIR sequences I didn't see any lesions that stood out for me that would be diagnostic for multiple sclerosis MRI cervical spines reported as no evidence for demyelinating disease involvement in the cervical spinal cord. Worsening multilevel degenerative changes noted as detailed above somewhat prominent for the patient, chronological age at. - Labs CBC & Chem 7: 05/22/21 22:02 05/22/21 22:02 Assessment and Plan Assessment: * Break-through seizures (she reports having multiple the day of presenting to hospital. I would have expected her labs to be reactive if she had multiple seizures (such has reactive wbc, lactic acid and creatnine. But all were normal). I am not sure if she has underlying seizure and pseudoseizures. * Relapsing-Remitting Multiple Sclerosis (for 6 1/2 years). No new enhancing lesion on MRI Brain or Cervical. I did not appreciate old lesion that stood out for me. She is not on any medication for now because of insurance issues. * History of epilepsy (for past 6 1/2 years) * Tremor * Bipolar * Anxiety * PTSD Plan: * Because there is no new Lesion, I notified the patient the that this does not look like MS exacerbation. She stated that she'll follow up with her neurologist as an outpatient regarding the management. * Ordered ambulatory 2 1/2 hour EEG (she had multiple EEG in our facility and did not show any epilpetiform discharges or seizure on the EEG. But stated she had routine EEG as outpatient at different facility and was told she had seizure). Patient stated she had an order from her neurology team for a 72 hour ambulatory EEG and is pending. * Continue Keppra 1000mg 1 tab bid (Was increased from 750mg bid. I notified her of side-effect of mood but she wants to go ahead with increase. Consider use of Lamictal down the line which help with mood and seizure). * Ordered TSH, Vitamin B12, folate. Ordered Vitamin D level. The labs are pending. * Every 4 hours neuro checks * On seizure precaution * Physical therapy and occupational therapy are consulted. * Will defer the rest of the medical management to primary team. * I feel the patient will benefit seeing psychiatrist as outpatient. * Upon discharge, the patient needs to follow-up with her neurologist (Dr. Alcazar) as outpatient. Per [place] DMV patient is to avoid driving for 6 month until the seizure-free. Patient is to avoid heights, using heavy machinery and swimming unassisted. This was notified to the patient. The plan is discussed with her nurse. There is no further neurological work-up beside pending labs above. Massimo Alicea MD Neuro-Hospitalist Time with Patient: Less than 30
[2021-05-24 18:38] LABS: Folate, Serum 9.6 ng/mL
== END 2021-05-24 15:15 | disposition home or self-care (01) | DRG 101 ==
LOC: EC 20:50 → 6NMEDSUR 23:29 → OBSVTOIN 05-24 11:31
PROVIDERS: ADMIT Hospitalist; ATTEND Hospitalist
DX: G40.909 Epilepsy, unspecified, not intractable, without status epilepticus (principal); G35 Multiple sclerosis; G43.909 Migraine, unspecified, not intractable, without status migrainosus; G63 Polyneuropathy in diseases classified elsewhere; F31.9 Bipolar disorder, unspecified; G25.0 Essential tremor; Z20.822 Contact with and (suspected) exposure to COVID-19; F43.10 Post-traumatic stress disorder, unspecified; G89.29 Other chronic pain; M79.605 Pain in left leg; M79.604 Pain in right leg; M41.9 Scoliosis, unspecified; K21.9 Gastro-esophageal reflux disease without esophagitis; Z98.51 Tubal ligation status; Z90.49 Acquired absence of other specified parts of digestive tract; Z79.899 Other long term (current) drug therapy; Z82.0 Family history of epilepsy and other diseases of the nervous system
CPT/HCPCS: 36415; 70450; 70553; 72156; 80053; 80306; 81003; 82607; 82652; 82746; 83605; 83735; 84443; 84702; 85025; 87635; 93005; 96372; 96374; 96375; 99285

== ENCOUNTER → 2021-06-23 | Outpatient (CLI) | payer OTHER | END | disposition home or self-care (01) | LOC: LABWHC1 12:27 | PROVIDERS: ATTEND Nurse Practitioner Adult Health | DX: Z11.59 Encounter for screening for other viral diseases (principal) | CPT/HCPCS: 87635 ==

== ENCOUNTER → 2021-12-29 | Outpatient (CLI) | payer OTHER ==
--- NOTE | 2021-12-29 12:30 | CT ---
EXAMINATION TYPE: CT brain jagdish wo con DATE OF EXAM: 12/29/2021 COMPARISON: CT 05/23/2021 MR 05/24/2021 HISTORY: MS CT DLP: 1440.7 mGycm Automated exposure control for dose reduction was used. TECHNIQUE: CT scan of the head and cervical spine are performed without contrast. FINDINGS: There is no acute intracranial hemorrhage, mass effect, or midline shift identified. The ventricles and sulci are within normal limits in size. The globes are intact and the visualized sin uses are clear. Cervical spine is visualized in its entirety from C1 through upper thoracic levels and demonstrates s atisfactory alignment without evidence of acute fracture or dislocation. Prevertebral soft tissue ap pears within normal limits. Multilevel spondylosis is present, loss of disc height greatest at C5-6 similar to prior MRI, no significant spinal stenosis left posterior paracentral disc herniation is pr esent at C6-7 causing anterolateral mass effect on the thecal sac, left-sided foraminal encroachment, smaller posterior left paracentral disc bulge is present at C5-6. The C1-C2 articulation is unremark able. IMPRESSION: 1. There is no acute fracture or dislocation evident in the cervical spine. 2. No acute intracranial hemorrhage, mass effect, or midline shift is seen. 3. Stable disc herniations, degenerative disc disease
== END | disposition home or self-care (01) ==
LOC: RADCTMAIN 10:43
PROVIDERS: ATTEND Psychiatry & Neurology Neurology
DX: G35 Multiple sclerosis (principal); G40.909 Epilepsy, unspecified, not intractable, without status epilepticus
CPT/HCPCS: 70450; 72125

== ENCOUNTER 2023-06-14 06:27 | Emergency (ER) | payer OTHER ==
[2023-06-14 06:37] VITALS: TEMP 97.5
[2023-06-14] MEDS ORDERED: SODIUM CHLORIDE 0.9% 500 ML 500 ML IV STA (06:52)
--- NOTE | 2023-06-14 06:54 | ED ---
Seizure HPI <Toño Chamberlain - Last Filed: 06/14/23 09:14> - General Source: patient, family, RN notes reviewed, old records reviewed Mode of arrival: wheelchair Limitations: no limitations - History of Present Illness MD Complaint: seizure -: hour(s) Description of Episode: loss of consciousness, tonic-clonic movement, post-event confusion -: second(s) Witnessed: yes - by bystander Trauma: Yes Seizure History: none Place: home Possible Precipitating Event: none Associated Symptoms: denies other symptoms <Toño Lemus - Last Filed: 06/21/23 13:23> - General Chief Complaint: Seizure Stated Complaint: Seizure Time Seen by Provider: 06/14/23 06:42 - History of Present Illness Initial Comments: This is a 37-year-old female to the emergency department for evaluation today. Patient presents today for evaluation regards to seizure activity. Patient is presented today for evaluation of recurrent seizures with history of seizures. (Toño Lemus) - Related Data Home Medications Medication Instructions Recorded Confirmed Propranolol HCl 20 mg PO BID 05/22/21 05/22/21 Previous Rx's Medication Instructions Recorded levETIRAcetam [Keppra] 1,000 mg PO BID #100 tab 05/24/21 Allergies Allergy/AdvReac Type Severity Reaction Status Date / Time No Known Allergies Allergy Verified 05/22/21 22:08 Review of Systems ROS Other: All systems not noted in ROS Statement are negative. <Toño Chamberlain - Last Filed: 06/14/23 09:14> ROS Other: All systems not noted in ROS Statement are negative. <Toño Lemus - Last Filed: 06/21/23 13:23> ROS Statement: Those systems with pertinent positive or pertinent negative responses have been documented in the HPI. Past Medical History Past Medical History: GERD/Reflux, Neurologic Disorder, Seizure Disorder Additional Past Medical History / Comment(s): multiple sclerosis, daily migraines, last seizure 1 yr ago, scoliosis,, neuropathy, choking easily, has episodes where looses vision for period of up to 48 hrs-cause unknown History of Any Multi-Drug Resistant Organisms: None Reported Past Surgical History: Appendectomy, Section, Tubal Ligation Additional Past Surgical History / Comment(s): D&C, CORRECTIVE EYE SURGERY Past Anesthesia/Blood Transfusion Reactions: Motion Sickness Additional Past Anesthesia/Blood Transfusion Reaction / Comment(s): "SPINAL WAS DIFFICULT D/T SCOLIOSIS" Past Psychological History: Anxiety, Bipolar, Depression, PTSD Smoking Status: Never smoker Past Alcohol Use History: Occasional Past Drug Use History: None Reported - Past Family History Father Family Medical History: Unable to Obtain Additional Family Medical History / Comment(s): does'nt know Mother Family Medical History: No Reported History Additional Family Medical History / Comment(s): . <Toño Lemus - Last Filed: 06/21/23 13:23> General Exam Limitations: no limitations General appearance: alert, in no apparent distress, anxious Head exam: Present: atraumatic, normocephalic, normal inspection Eye exam: Present: normal appearance, PERRL, EOMI. Absent: scleral icterus, conjunctival injection, periorbital swelling ENT exam: Present: normal exam, mucous membranes moist Neck exam: Present: normal inspection. Absent: tenderness, meningismus, lymphadenopathy Respiratory exam: Present: normal lung sounds bilaterally. Absent: respiratory distress, wheezes, rales, rhonchi, stridor Cardiovascular Exam: Present: regular rate, normal rhythm, normal heart sounds. Absent: systolic murmur, diastolic murmur, rubs, gallop, clicks GI/Abdominal exam: Present: soft, normal bowel sounds. Absent: distended, t enderness, guarding, rebound, rigid Extremities exam: Present: normal inspection, full ROM, normal capillary refill. Absent: tenderness, pedal edema, joint swelling, calf tenderness Back exam: Present: normal inspection Neurological exam: Present: alert, oriented X3, CN II-XII intact Psychiatric exam: Present: normal affect, normal mood Skin exam: Present: warm, dry, intact, normal color. Absent: rash <Toño Lemus - Last Filed: 06/21/23 13:23> Course <Toño Lemus Last Filed: 06/21/23 13:23> Vital Signs 06/14/23 06/14/23 06:31 09:28 Temperature 97.5 F L Pulse Rate 113 H 92 Respiratory 18 17 Rate Blood Pressure 150/41 144/79 O2 Sat by Pulse 93 L 96 Oximetry - Reevaluation(s) Reevaluation #1: 06/14/23 07:40 Medical record is reviewed (Toño Lemus) Reevaluation #2: No recurrent seizure activity here in the ER (Toño Lemus) Reevaluation #3: Patient informed results and questions answered (Toño Lemus) Reevaluation #4: 06/14/23 07:40 Was pt. sent in by a medical professional or institution (HARINI Mcguire, PHILATELIC CONSULTANT, urgent care, hospital, or fpc...) When possible be specific @ -no Did you speak to anyone other than the patient for history (EMS, parent, family, police, friend...)? What history was obtained from this source @ -no Did you review nursing and triage notes (agree or disagree)? Why? @ -agree Are old charts reviewed (outside hosp., previous admission, EMS record, old EKG, old radiological studies, urgent care reports/EKG's, fpc records)? Report findings @ -yes Differential Diagnosis (chest pain, altered mental status, abdominal pain women, abdominal pain men, vaginal bleeding, weakness, fever, dyspnea, syncope, head ache, dizziness, GI bleed, back pain, seizure, CVA, palpatations, mental health, musculoskeletal)? @ -prior EKG interpreted by me (3pts min.). @ -yes X-rays interpreted by me (1pt min.). @ -no CT interpreted by me (1pt min.). @ -no U/S interpreted by me (1pt. min.). @ -no What testing was considered but not performed or refused? (CT, X-rays, U/S, labs)? Why? @ -none What meds were considered but not given or refused? Why? @ -none Did you discuss the management of the patient with other professionals (professionals i.e. HARINI Mcguire, PHILATELIC CONSULTANT, lab, RT, psych nurse, pediatric social worker, chalk molding machine operator, teacher, consumer safety officer, shoe parts caser)? Give summary @ -no Was smoking cessation discussed for >3mins.? @ -no Was critical care preformed (if so, how long)? @ -no Were there social determinants of health that impacted care today? How? (Homelessness, low income, unemployed, alcoholism, drug addiction, vega sportation, low edu. Level, literacy, decrease access to med. care, nursing home, rehab)? @ -none Was there de-escalation of care discussed even if they declined (Discuss DNR or withdrawal of care, Hospice)? DNR status @ -no What co-morbidities impacted this encounter? (DM, HTN, Smoking, COPD, CAD, Cancer, CVA, ARF, Chemo, Hep., AIDS, mental health diagnosis, sleep apnea, morbid obesity)? @ -none Was patient admitted / discharged? Hospital course, mention meds given and route, prescriptions, significant lab abnormalities, going to OR and other pertinent info. @ - 37 female to the emergency department for evaluation of seizure activity. Patient does have underlying seizure disorder but no recurrent seizures here in the ER she can be discharged home Discharge Undiagnosed new problem with uncertain prognosis? @ -no Drug Therapy requiring intensive monitoring for toxicity (Heparin, Nitro, Insu chandan, Cardizem)? @ -no Were any procedures done? @ -no Diagnosis/symptom? @ -Recurrent seizures Acute, or Chronic, or Acute on Chronic? @ -Acute Uncomplicated (without systemic symptoms) or Complicated (systemic symptoms)? @ -Complicated Side effects of treatment? @ -no Exacerbation, Progression, or Severe Exacerbation? @ -exacerbation Poses a threat to life or bodily function? How? (Chest pain, USA, ID, pneumonia, PE, COPD, DKA, ARF, appy, cholecystitis, CVA, Diverticulitis, Homicidal, Lara icidal, threat to staff... and all critical care pts) @ -yes seizure with history of status epilepticus (Toño Lemus) Reevaluation #5: Differential Seizure: Recurrent seizure disorder, febrile seizure, alcohol withdrawal, stimulants, meningitis, encephalitis, intercranial hemorrhage, intracranial tumor, stroke, eclampsia, thyrotoxicosis, hypocalcemia, hyponatremia, hypernatremia, hypomagnesemia, psychogenic, this is not meant to be an all-inclusive list. (Toño Lemus) Medical Decision Making - Lab Data Result diagrams: 06/14/23 07:44 06/14/23 07:44 <Toño Chamberlain - Last Filed: 06/14/23 09:14> - Lab Data Result diagrams: 06/14/23 07:44 06/14/23 07:44 - EKG Data -: EKG Interpreted by Me (EKG is sinus 80 NH 133 QRS 85 QTC 398) <Toño Lemus - Last Filed: 06/21/23 13:23> - Medical Decision Making EKG shows a sinus rhythm at 80 bpm NH interval is 133 QRSs 85 QT interval 360 QTC is 398. Patient's EKG shows no ST segment elevation or depression. Was patient admitted / discharged? Hospital course, mention meds given and route, prescriptions, significant lab abnormalities, going to OR and other pertinent info. @ -Signed out to me by Dr. Lemus and I was awaiting lab work. Patient had cocaine positive in her urine and I discussed using cocaine to the patient and how that might be detrimental to her seizure disorder. Patient denied ever using cocaine. Patient states she takes her seizure medication every single day and she does have follow-up with not only her doctor locally but with the [facility] Undiagnosed new problem with uncertain prognosis? @ -No Drug Therapy requiring intensive monitoring for toxicity (Heparin, Nitro, Insulin, Cardizem)? @ -No Were any procedures done? @ -No Diagnosis/symptom? @ -Generalized seizures Acute, or Chronic, or Acute on Chronic? @ -Acute Uncomplicated (without systemic symptoms) or Complicated (systemic symptoms)? @ -Complicated Side effects of treatment? @ -No Exacerbation, Progression, or Severe Exacerbation? @ -No Poses a threat to life or bodily function? How? (Chest pain, USA, ID, pneumonia, PE, COPD, DKA, ARF, appy, cholecystitis, CVA, Diverticulitis, Homicidal, Suicidal, threat to staff... and all critical care pts) @ -No Diagnosis/symptom? @ -Cocaine abuse Acute, or Chronic, or Acute on Chronic? @ -Acute Uncomplicated (without systemic symptoms) or Complicated (systemic symptoms)? @ -Complicated Side effects of treatment? @ -none Exacerbation, Progression, or Severe Exacerbation] @ -no Poses a threat to life or bodily function? @ -no (Toño Chamberlain) 37 female to the emergency department for evaluation of seizure activity. Patient does have underlying seizure disorder but no recurrent seizures here in the ER she can be discharged home (Toño Lemus) - Lab Data Lab Results 06/14/23 06/14/23 06/14/23 Range/Units 07:44 07:44 07:44 WBC 4.0 (3.8-10.6) k/uL RBC 4.14 (3.80-5.40) m/uL Hgb 12.7 (11.4-16.0) gm/dL Hct 39.1 (34.0-46.0) % MCV 94.4 (80.0-100.0) fL MCH 30.7 (25.0-35.0) pg MCHC 32.5 (31.0-37.0) g/dL RDW 12.5 (11.5-15.5) % Plt Count 244 (150-450) k/uL MPV 7.4 Neutrophils % 59 % Lymphocytes % 24 % Monocytes % 13 % Eosinophils % 1 % Basophils % 0 % Neutrophils # 2.4 (1.3-7.7) k/uL Lymphocytes # 1.0 (1.0-4.8) k/uL Monocytes # 0.5 (0-1.0) k/uL Eosinophils # 0.0 (0-0.7) k/uL Basophils # 0.0 (0-0.2) k/uL Sodium 140 (137-145) mmol/L Potassium 4.1 (3.5-5.1) mmol/L Chloride 113 H (98-107) mmol/L Carbon Dioxide 17 L (22-30) mmol/L Anion Gap 10 mmol/L BUN 7 (7-17) mg/dL Creatinine 0.61 (0.52-1.04) mg/dL Est GFR (CKD-EPI)AfAm >90 (>60 ml/min/1.73 sqM) Est GFR (CKD-EPI)NonAf >90 (>60 ml/min/1.73 sqM) Glucose 99 (74-99) mg/dL Calcium 8.7 (8.4-10.2) mg/dL Magnesium 2.1 (1.6-2.3) mg/dL Total Bilirubin 0.3 (0.2-1.3) mg/dL AST 24 (14-36) U/L ALT 13 (4-34) U/L Alkaline Phosphatase 79 (38-126) U/L Total Protein 7.1 (6.3-8.2) g/dL Albumin 4.2 (3.5-5.0) g/dL Urine Color Light Yellow Urine Appearance Clear (Clear) Urine pH 7.0 (5.0-8.0) Ur Specific [place] 1.016 (1.001-1.035) Urine Protein Negative (Negative) Urine Glucose (UA) Negative (Negative) Urine Ketones Negative (Negative) Urine Blood Trace H (Negative) Urine Nitrite Negative (Negative) Urine Bilirubin Negative (Negative) Urine Urobilinogen <2.0 (<2.0) mg/dL Ur Leukocyte Esterase Negative (Negative) Urine RBC <1 (0-5) /hpf Urine WBC 1 (0-5) /hpf Ur Squamous Epith Cells 1 (0-4) /hpf Urine Mucus Rare H (None) /hpf Salicylates <1.0 mg/dL Urine Opiates Screen Not Detected (NotDetected) Ur Oxycodone Screen Not Detected (NotDetected) Urine Methadone Screen Not Detected (NotDetected) Ur Propoxyphene Screen Not Detected (NotDetected) Acetaminophen <10.0 ug/mL Ur Barbiturates Screen Not Detected (NotDetected) Phenytoin <3.0 ug/mL Valproic Acid <10.0 ug/mL Carbamazepine <3.0 ug/mL Lamotrigine (2.0-15.0) ug/mL U Tricyclic Antidepress Not Detected (NotDetected) Ur Phencyclidine Scrn Not Detected (NotDetected) Ur Amphetamines Screen Not Detected (NotDetected) U Methamphetamines Scrn Not Detected (NotDetected) U Benzodiazepines Scrn Not Detected (NotDetected) Urine Cocaine Screen Detected H (NotDetected) U Marijuana (THC) Screen Detected H (NotDetected) 06/14/23 Range/Units 08:28 WBC (3.8-10.6) k/uL RBC (3.80-5.40) m/uL Hgb (11.4-16.0) gm/dL Hct (34.0-46.0) % MCV (80.0-100.0) fL MCH (25.0-35.0) pg MCHC (31.0-37.0) g/dL RDW (11.5-15.5) % Plt Count (150-450) k/uL MPV Neutrophils % % Lymphocytes % % Monocytes % % Eosinophils % % Basophils % % Neutrophils # (1.3-7.7) k/uL Lymphocytes # (1.0-4.8) k/uL Monocytes # (0-1.0) k/uL Eosinophils # (0-0.7) k/uL Basophils # (0-0.2) k/uL Sodium (137-145) mmol/L Potassium (3.5-5.1) mmol/L Chloride (98-107) mmol/L Carbon Dioxide (22-30) mmol/L Anion Gap mmol/L BUN (7-17) mg/dL Creatinine (0.52-1.04) mg/dL Est GFR (CKD-EPI)AfAm (>60 ml/min/1.73 sqM) Est GFR (CKD-EPI)NonAf (>60 ml/min/1.73 sqM) Glucose (74-99) mg/dL Calcium (8.4-10.2) mg/dL Magnesium (1.6-2.3) mg/dL Total Bilirubin (0.2-1.3) mg/dL AST (14-36) U/L ALT (4-34) U/L Alkaline Phosphatase (38-126) U/L Total Protein (6.3-8.2) g/dL Albumin (3.5-5.0) g/dL Urine Color Urine Appearance (Clear) Urine pH (5.0-8.0) Ur Specific [place] (1.001-1.035) Urine Protein (Negative) Urine Glucose (UA) (Negative) Urine Ketones (Negative) Urine Blood (Negative) Urine Nitrite (Negative) Urine Bilirubin (Negative) Urine Urobilinogen (<2.0) mg/dL Ur Leukocyte Esterase (Negative) Urine RBC (0-5) /hpf Urine WBC (0-5) /hpf Ur Squamous Epith Cells (0-4) /hpf Urine Mucus (None) /hpf Salicylates mg/dL Urine Opiates Screen (NotDetected) Ur Oxycodone Screen (NotDetected) Urine Methadone Screen (NotDetected) Ur Propoxyphene Screen (NotDetected) Acetaminophen ug/mL Ur Barbiturates Screen (NotDetected) Phenytoin ug/mL Valproic Acid ug/mL Carbamazepine ug/mL Lamotrigine 12.8 (2.0-15.0) ug/mL U Tricyclic Antidepress (NotDetected) Ur Phencyclidine Scrn (NotDetected) Ur Amphetamines Screen (NotDetected) U Methamphetamines Scrn (NotDetected) U Benzodiazepines Scrn (NotDetected) Urine Cocaine Screen (NotDetected) U Marijuana (THC) Screen (NotDetected) Disposition Is patient prescribed a controlled substance at d/c from ED?: No Time of Disposition: 09:00 <Toño Chamberlain - Last Filed: 06/14/23 09:14> <Toño Lemus - Last Filed: 06/21/23 13:23> Clinical Impression: Generalized seizure, Cocaine abuse Disposition: HOME SELF-CARE Instructions (If sedation given, give patient instructions): Seizure/Epilepsy Discharge Instructions & Follow-Up Referrals: Augusto Salazar MD [REFERRING] - 1-2 days
[2023-06-14 08:14] LABS: Basophils % (A) 0 %; Eosinophils % (A) 1 %; HCT 39.1 % (34.0-46.0); HGB 12.7 gm/dL (11.4-16.0); Lymphocytes % (A) 24 %; MCH 30.7 pg (25.0-35.0); MCHC 32.5 g/dL (31.0-37.0); MCV 94.4 fL (80.0-100.0); Mean Platelet Volume 7.4; Monocytes # (A) 0.5 k/uL (0-1.0); Monocytes % (A) 13 %; Neutrophils # (A) 2.4 k/uL (1.3-7.7); Neutrophils % (A) 59 %; Platelet Count 244 k/uL (150-450); RBC 4.14 m/uL (3.80-5.40); RDW 12.5 % (11.5-15.5)
[2023-06-14 08:16] LABS: ALT 13 U/L (4-34); AST 24 U/L (14-36); Acetaminophen <10.0 ug/mL; African American GFR (CKD) >90 (>60 ml/min/1.73 sqM); Albumin 4.2 g/dL (3.5-5.0); Alkaline Phosphatase 79 U/L (38-126); Anion Gap 10 mmol/L; Blood Urea Nitrogen 7 mg/dL (7-17); Calcium 8.7 mg/dL (8.4-10.2); Carbon Dioxide 17 mmol/L (22-30); Chloride 113 mmol/L (98-107); Glucose 99 mg/dL (74-99); Magnesium 2.1 mg/dL (1.6-2.3); Non-African American GFR(CKD) >90 (>60 ml/min/1.73 sqM); Potassium 4.1 mmol/L (3.5-5.1); Salicylate <1.0 mg/dL; Sodium 140 mmol/L (137-145); Total Bilirubin 0.3 mg/dL (0.2-1.3); Total Protein 7.1 g/dL (6.3-8.2)
[2023-06-14 08:24] LABS: Appearance,Urine Clear (Clear); Bilirubin,Urine Negative (Negative); Blood,Urine Trace (Negative); Color,Urine Light Yellow; Glucose,Urine (UA) Negative (Negative); Ketones,Urine Negative (Negative); Leukocyte Esterase,Urine Negative (Negative); Mucus,Urine Rare /hpf; Nitrite,Urine Negative (Negative); Protein,Urine Negative (Negative); RBC,Urine <1 /hpf (0-5); Specific Gravity,Urine 1.016 (1.001-1.035); Squamous Epithelial Cell,Urine 1 /hpf (0-4); Urobilinogen,Urine <2.0 mg/dL (<2.0); WBC,Urine 1 /hpf (0-5)
[2023-06-14 08:36] LABS: Amphetamine Screen,Urine Not Detected (NotDetected); Barbiturate Screen,Urine Not Detected (NotDetected); Benzodiazepines Screen,Urine Not Detected (NotDetected); Cocaine Screen,Urine Detected (NotDetected); Methadone Screen, Urine Not Detected (NotDetected); Opiate Screen,Urine Not Detected (NotDetected); Oxycodone Screen, Urine Not Detected (NotDetected); Phencyclidine Screen,Urine Not Detected (NotDetected); Tricyclic Antidepressant,Urine Not Detected (NotDetected); Urn Cannabinoid Scrn Detected (NotDetected)
[2023-06-14 09:42] VITALS: BP 144/79; PULSE 92; RESP 17
[2023-06-14 10:22] LABS: Carbamazepine (Tegretol) <3.0 ug/mL; Phenytoin (Dilantin) <3.0 ug/mL
[2023-06-14 10:24] LABS: Valproic Acid (Depakene) <10.0 ug/mL
== END 2023-06-14 09:32 | disposition home or self-care (01) ==
LOC: EC 06:27
DX: G40.409 Other generalized epilepsy and epileptic syndromes, not intractable, without status epilepticus (principal); F14.10 Cocaine abuse, uncomplicated; F41.9 Anxiety disorder, unspecified; F31.9 Bipolar disorder, unspecified; Z79.899 Other long term (current) drug therapy
CPT/HCPCS: 36415; 80053; 80143; 80156; 80164; 80175; 80179; 80185; 80306; 81001; 83735; 85025; 93005; 99284

== ENCOUNTER 2024-12-11 22:57 | Emergency (ER) | payer OTHER ==
[2024-12-11 23:01] VITALS: BP 158/93; PULSE 111; RESP 18; TEMP 98.8
[2024-12-12 00:28] LABS: Anisocytosis Slight; Basophils % (A) 1 %; Eosinophils % (A) 1 %; HGB 9.8 gm/dL (11.4-16.0); Hypochromasia Marked; Lymphocytes % (A) 32 %; MCH 21.8 pg (25.0-35.0); MCHC 29.7 g/dL (31.0-37.0); MCV 73.3 fL (80.0-100.0); Mean Platelet Volume 6.7; Microcytosis Moderate; Monocytes # (A) 0.3 k/uL (0-1.0); Monocytes % (A) 5 %; Neutrophils # (A) 3.7 k/uL (1.3-7.7); Neutrophils % (A) 59 %; Platelet Count 384 k/uL (150-450); RBC 4.51 m/uL (3.80-5.40); RDW 17.1 % (11.5-15.5); WBC 6.2 k/uL (3.8-10.6)
[2024-12-12 00:52] LABS: ALT 19 U/L (4-34); AST 32 U/L (14-36); African American GFR (CKD) >90 (>60 ml/min/1.73 sqM); Albumin 4.6 g/dL (3.5-5.0); Alkaline Phosphatase 82 U/L (38-126); Anion Gap 16 mmol/L; Blood Urea Nitrogen 9 mg/dL (7-17); Carbon Dioxide 18 mmol/L (22-30); Chloride 106 mmol/L (98-107); Glucose 110 mg/dL (74-99); Non-African American GFR(CKD) >90 (>60 ml/min/1.73 sqM); Potassium 3.5 mmol/L (3.5-5.1); Sodium 140 mmol/L (137-145); Total Bilirubin 0.2 mg/dL (0.2-1.3); Total Protein 7.1 g/dL (6.3-8.2)
[2024-12-12 01:08] LABS: INR 0.8 (<1.2); Prothrombin Time 9.5 sec (10.0-12.5)
[2024-12-12 01:12] LABS: Partial Thromboplastin Time 21.5 sec (22.0-30.0)
[2024-12-12 01:49] LABS: Appearance,Urine Clear (Clear); Bilirubin,Urine Negative (Negative); Blood,Urine Negative (Negative); Color,Urine Colorless; Glucose,Urine (UA) Negative (Negative); Ketones,Urine Negative (Negative); Leukocyte Esterase,Urine Negative (Negative); Nitrite,Urine Negative (Negative); Protein,Urine Negative (Negative); Urobilinogen,Urine <2.0 mg/dL (<2.0)
[2024-12-12 01:55] LABS: Amphetamine Screen,Urine Not Detected (NotDetected); Barbiturate Screen,Urine Not Detected (NotDetected); Benzodiazepines Screen,Urine Not Detected (NotDetected); Cocaine Screen,Urine Not Detected (NotDetected); Methadone Screen, Urine Not Detected (NotDetected); Opiate Screen,Urine Not Detected (NotDetected); Oxycodone Screen, Urine Not Detected (NotDetected); Phencyclidine Screen,Urine Not Detected (NotDetected); Tricyclic Antidepressant,Urine Not Detected (NotDetected); Urn Cannabinoid Scrn Not Detected (NotDetected)
--- NOTE | 2024-12-12 02:42 | CT ---
EXAM: CT Head Without Intravenous Contrast CLINICAL HISTORY: ITS.REASON CT Reason: Headache TECHNIQUE: Axial computed tomography images of the head/brain without intravenous contrast. CTDI is 49.1 mGy and DLP is 1097.4 mGy-cm. This CT exam was performed using one or more of the following dose reduction techniques: automated exposure control, adjustment of the mA and/or kV according to patient size, and/or use of iterative reconstruction technique. COMPARISON: No relevant prior studies available. FINDINGS: Brain: No hemorrhage or mass effect. Ventricles: No hydrocephalus. Bones/joints: Unremarkable. Soft tissues: Unremarkable. Sinuses: No air fluid level. Mastoid air cells: Clear. IMPRESSION: No acute hemorrhage, hydrocephalus, or mass effect.
--- NOTE | 2024-12-12 03:03 | ED ---
General Adult HPI - General Chief complaint: Headache Stated complaint: Nose Bleeds and Migraines Time Seen by Provider: 12/11/24 23:27 Source: patient Mode of arrival: ambulatory Limitations: no limitations - History of Present Illness Initial comments: 1-year-old female presented with chief complaint of headaches and nosebleeds. Patient reports that she has had recurrent headaches and nosebleeds for the last 3 days. No head injury or trauma. No blood thinners. States that the headache is a squeezing sensation that feels like her head is going to "pop". Bleeding is coming from the right nostril. No current bleeding. No cough congestion or sore throat. No chest pain or difficulty breathing. Patient reports that she does have history of vertigo, worse when she moves her head. She does follow with a neurologist for mass. Patient has neuropathy at baseline. No vision or hearing changes. No weakness. No nausea or vomiting. - Related Data Home Medications Medication Instructions Recorded Confirmed Propranolol HCl 20 mg PO BID 05/22/21 05/22/21 Previous Rx's Medication Instructions Recorded levETIRAcetam [Keppra] 1,000 mg PO BID #100 tab 05/24/21 Allergies Allergy/AdvReac Type Severity Reaction Status Date / Time No Known Allergies Allergy Verified 12/11/24 23:01 Review of Systems ROS Statement: Those systems with pertinent positive or pertinent negative responses have been documented in the HPI. ROS Other: All systems not noted in ROS Statement are negative. Past Medical History Past Medical History: GERD/Reflux, Neurologic Disorder, Seizure Disorder Additional Past Medical History / Comment(s): multiple sclerosis, daily migraines, last seizure 1 yr ago, scoliosis,, neuropathy, choking easily, has episodes where looses vision for period of up to 48 hrs-cause unknown History of Any Multi-Drug Resistant Organisms: None Reported Past Surgical History: Appendectomy, Section, Tubal Ligation Additional Past Surgical History / Comment(s): D&C, CORRECTIVE EYE SURGERY Past Anesthesia/Blood Transfusion Reactions: Motion Sickness Additional Past Anesthesia/Blood Transfusion Reaction / Comment(s): "SPINAL WAS DIFFICULT D/T SCOLIOSIS" Past Psychological History: Anxiety, Bipolar, Depression, PTSD Smoking Status: Never smoker Past Alcohol Use History: Occasional Past Drug Use History: None Reported - Past Family History Father Family Medical History: Unable to Obtain Additional Family Medical History / Comment(s): does'nt know Mother Family Medical History: No Reported History Additional Family Medical History / Comment(s): . General Exam Limitations: no limitations General appearance: alert, in no apparent distress Head exam: Present: atraumatic, normocephalic, normal inspection Eye exam: Present: normal appearance, EOMI. Absent: periorbital swelling Neck exam: Present: normal inspection. Absent: meningismus Respiratory exam: Present: normal lung sounds bilaterally. Absent: respiratory distress, wheezes, rales, rhonchi, stridor Cardiovascular Exam: Present: regular rate, normal rhythm, normal heart sounds. Absent: systolic murmur, diastolic murmur, rubs, gallop, clicks Neurological exam: Present: alert, oriented X3 Expanded Patient oriented to: Present: person, place, time Speech: Present: fluid speech Cranial nerves: EOM's Intact: Normal Cerebellar function: Finger to Nose: Normal, Heel to Lloyd: Normal Motor strength exam: RUE: 5, LUE: 5, RLE: 5, LLE: 5 Eye Response: (4) open spontaneously Motor Response: (6) obeys commands Verbal Response: (5) oriented Reji Total: 15 Psychiatric exam: Present: normal affect, normal mood Skin exam: Present: warm, dry, normal color Course Vital Signs 12/11/24 22:59 Temperature 98.8 F Pulse Rate 111 H Respiratory 18 Rate Blood Pressure 158/93 O2 Sat by Pulse 98 Oximetry Medical Decision Making - Medical Decision Making Was pt. sent in by a medical professional or institution (, PA, SHIP RIGGER, urgent care, hospital, or group home...) When possible be specific @ -No Did you speak to anyone other than the patient for history (EMS, parent, family, police, friend...)? What history was obtained from this source @ -No Did you review nursing and triage notes (agree or disagree)? Why? @ -I reviewed and agree with nursing and triage notes Were old charts reviewed (outside hosp., previous admission, EMS record, old EKG, old radiological studies, urgent care reports/EKG's, group home records)? Report findings @ -No old charts were reviewed Differential Diagnosis (chest pain, altered mental status, abdominal pain women, abdominal pain men, vaginal bleeding, weakness, fever, dyspnea, syncope, headache, dizziness, GI bleed, back pain, seizure, CVA, palpatations, mental health, musculoskeletal)? @ -MDM Differential Headache: Migraine, tension, cluster, carbon monoxide, central venous thrombosis, pension karma temporal arteritis, acute closure glaucoma, intercranial hemorrhage, mastoiditis, sinusitis, head injury this is not meant to be an all-inclusive list. EKG interpreted by me (3pts min.). @ -As above X-rays interpreted by me (1pt min.). @ -None done CT interpreted by me (1pt min.). @ -CT shows no acute hemorrhage hydrocephalus or mass effect U/S interpreted by me (1pt. min.). @ -None done What testing was considered but not performed or refused? (CT, X-rays, U/S, labs)? Why? @ -None What meds were considered but not given or refused? Why? @ -None Did you discuss the management of the patient with other professionals (professionals i.e. , PA, SHIP RIGGER, lab, RT, psych nurse, family welfare social work professor, worker's compensation claims examiner, teacher, chief diversity officer, manager case management)? Give summary @ -No Was smoking cessation discussed for >3mins.? @ -No Was critical care preformed (if so, how long)? @ -No Were there social determinants of health that impacted care today? How? (Homelessness, low income, unemployed, alcoholism, drug addiction, transportation, low edu. Level, literacy, decrease access to med. care, fdc, rehab)? @ -No Was there de-escalation of care discussed even if they declined (Discuss DNR or withdrawal of care, Hospice)? DNR status @ -No What co-morbidities impacted this encounter? (DM, HTN, Smoking, COPD, CAD, Cancer, CVA, ARF, Chemo, Hep., AIDS, mental health diagnosis, sleep apnea, morbid obesity)? @ -None Was patient admitted / discharged? Hospital course, mention meds given and route, prescriptions, significant lab abnormalities, going to OR and other pertinent info. @ -39-year-old female presenting with chief complaint of headaches. Patient is also experiencing nosebleeds. Ongoing for the last 3 days. History and physical examination are conducted. GCS 15 with no focal neurological deficits. Hemoglobin 9.8. Remainder of labs require no immediate action. CT shows no acute process. On reassessment the patient is resting comfortably showing no acute signs of distress. She does not want any medication for her headache and states that it is under control at this time. Educated the patient on today's findings. Informed her that she was anemic today and does need to follow-up with her PCP. When I tell her that she states "I know" and states she has been anemic before. Follow-up with PCP. Report back to ER with any new or worsening symptoms. Discussed return parameters and answered all questions. Patient conveyed verbal understanding and agreed to the plan. I discussed this case in detail with my attending Dr. Sinclair Undiagnosed new problem with uncertain prognosis? @ -No Drug Therapy requiring intensive monitoring for toxicity (Heparin, Nitro, Insulin, Cardizem)? @ -No Were any procedures done? @ -No Diagnosis/symptom? @ -Headache, anemia Acute, or Chronic, or Acute on Chronic? @ -Acute Uncomplicated (without systemic symptoms) or Complicated (systemic symptoms)? @ -Uncomplicated Side effects of treatment? @ -No Exacerbation, Progression, or Severe Exacerbation? @ -No Poses a threat to life or bodily function? How? (Chest pain, USA, VT, pneumonia, PE, COPD, DKA, ARF, appy, cholecystitis, CVA, Diverticulitis, Homicidal, Lara icidal, threat to staff... and all critical care pts) @ -Low likelihood - Lab Data Result diagrams: 12/12/24 00:19 12/12/24 00:19 Lab Results 12/12/24 12/12/24 12/12/24 Range/Units 00:19 00:19 00:19 WBC 6.2 (3.8-10.6) k/uL RBC 4.51 (3.80-5.40) m/uL Hgb 9.8 L (11.4-16.0) gm/dL Hct 33.0 L (34.0-46.0) % MCV 73.3 L (80.0-100.0) fL MCH 21.8 L (25.0-35.0) pg MCHC 29.7 L (31.0-37.0) g/dL RDW 17.1 H (11.5-15.5) % Plt Count 384 (150-450) k/uL MPV 6.7 Neutrophils % 59 % Lymphocytes % 32 % Monocytes % 5 % Eosinophils % 1 % Basophils % 1 % Neutrophils # 3.7 (1.3-7.7) k/uL Lymphocytes # 2.0 (1.0-4.8) k/uL Monocytes # 0.3 (0-1.0) k/uL Eosinophils # 0.0 (0-0.7) k/uL Basophils # 0.0 (0-0.2) k/uL Hypochromasia Marked Anisocytosis Slight Microcytosis Moderate PT 9.5 L (10.0-12.5) sec INR 0.8 (<1.2) APTT 21.5 L (22.0-30.0) sec Sodium 140 (137-145) mmol/L Potassium 3.5 (3.5-5.1) mmol/L Chloride 106 (98-107) mmol/L Carbon Dioxide 18 L (22-30) mmol/L Anion Gap 16 mmol/L BUN 9 (7-17) mg/dL Creatinine 0.65 (0.52-1.04) mg/dL Est GFR (CKD-EPI)AfAm >90 (>60 ml/min/1.73 sqM) Est GFR (CKD-EPI)NonAf >90 (>60 ml/min/1.73 sqM) Glucose 110 H (74-99) mg/dL Calcium 9.0 (8.4-10.2) mg/dL Total Bilirubin 0.2 (0.2-1.3) mg/dL AST 32 (14-36) U/L ALT 19 (4-34) U/L Alkaline Phosphatase 82 (38-126) U/L Total Protein 7.1 (6.3-8.2) g/dL Albumin 4.6 (3.5-5.0) g/dL Urine Color Urine Appearance (Clear) Urine pH (5.0-8.0) Ur Specific [place] (1.001-1.035) Urine Protein (Negative) Urine Glucose (UA) (Negative) Urine Ketones (Negative) Urine Blood (Negative) Urine Nitrite (Negative) Urine Bilirubin (Negative) Urine Urobilinogen (<2.0) mg/dL Ur Leukocyte Esterase (Negative) Urine HCG, Qual (Not Detectd) Urine Opiates Screen (NotDetected) Ur Oxycodone Screen (NotDetected) Urine Methadone Screen (NotDetected) Ur Barbiturates Screen (NotDetected) U Tricyclic Antidepress (NotDetected) Ur Phencyclidine Scrn (NotDetected) Ur Amphetamines Screen (NotDetected) U Methamphetamines Scrn (NotDetected) U Benzodiazepines Scrn (NotDetected) Urine Cocaine Screen (NotDetected) U Marijuana (THC) Screen (NotDetected) 12/12/24 12/12/24 12/12/24 Range/Units 01:25 01:25 01:25 WBC (3.8-10.6) k/uL RBC (3.80-5.40) m/uL Hgb (11.4-16.0) gm/dL Hct (34.0-46.0) % MCV (80.0-100.0) fL MCH (25.0-35.0) pg MCHC (31.0-37.0) g/dL RDW (11.5-15.5) % Plt Count (150-450) k/uL MPV Neutrophils % % Lymphocytes % % Monocytes % % Eosinophils % % Basophils % % Neutrophils # (1.3-7.7) k/uL Lymphocytes # (1.0-4.8) k/uL Monocytes # (0-1.0) k/uL Eosinophils # (0-0.7) k/uL Basophils # (0-0.2) k/uL Hypochromasia Anisocytosis Microcytosis PT (10.0-12.5) sec INR (<1.2) APTT (22.0-30.0) sec Sodium (137-145) mmol/L Potassium (3.5-5.1) mmol/L Chloride (98-107) mmol/L Carbon Dioxide (22-30) mmol/L Anion Gap mmol/L BUN (7-17) mg/dL Creatinine (0.52-1.04) mg/dL Est GFR (CKD-EPI)AfAm (>60 ml/min/1.73 sqM) Est GFR (CKD-EPI)NonAf (>60 ml/min/1.73 sqM) Glucose (74-99) mg/dL Calcium (8.4-10.2) mg/dL Total Bilirubin (0.2-1.3) mg/dL AST (14-36) U/L ALT (4-34) U/L Alkaline Phosphatase (38-126) U/L Total Protein (6.3-8.2) g/dL Albumin (3.5-5.0) g/dL Urine Color Colorless Urine Appearance Clear (Clear) Urine pH 6.0 (5.0-8.0) Ur Specific [place] 1.010 (1.001-1.035) Urine Protein Negative (Negative) Urine Glucose (UA) Negative (Negative) Urine Ketones Negative (Negative) Urine Blood Negative (Negative) Urine Nitrite Negative (Negative) Urine Bilirubin Negative (Negative) Urine Urobilinogen <2.0 (<2.0) mg/dL Ur Leukocyte Esterase Negative (Negative) Urine HCG, Qual Not Detected (Not Detectd) Urine Opiates Screen Not Detected (NotDetected) Ur Oxycodone Screen Not Detected (NotDetected) Urine Methadone Screen Not Detected (NotDetected) Ur Barbiturates Screen Not Detected (NotDetected) U Tricyclic Antidepress Not Detected (NotDetected) Ur Phencyclidine Scrn Not Detected (NotDetected) Ur Amphetamines Screen Not Detected (NotDetected) U Methamphetamines Scrn Not Detected (NotDetected) U Benzodiazepines Scrn Not Detected (NotDetected) Urine Cocaine Screen Not Detected (NotDetected) U Marijuana (THC) Screen Not Detected (NotDetected) Disposition Clinical Impression: Headache, Anemia Disposition: HOME SELF-CARE Condition: Good Instructions (If sedation given, give patient instructions): Acute Headache (ED), Anemia (ED) Additional Instructions: Follow-up with PCP and neurologist. Report back to ER with any new or worsening symptoms. Is patient prescribed a controlled substance at d/c from ED?: No Referrals: Victor M Arana MD [Primary Care Provider] - 1-2 days Time of Disposition: 03:02
== END 2024-12-12 03:30 | disposition home or self-care (01) ==
LOC: EC 22:57
DX: G43.909 Migraine, unspecified, not intractable, without status migrainosus (principal); D64.9 Anemia, unspecified
CPT/HCPCS: 36415; 70450; 80053; 80306; 81003; 81025; 85025; 85610; 85730; 99284